=== PATIENT | male | born 1945 | race Two or more races ===

== ENCOUNTER → 2024-07-06 | Outpatient (CLI) | payer MEDICARE, SELFPAY ==
[2024-07-06 13:55] LABS: Basophils # (Auto) 0.1 Thou/mm3 (0.0-0.2); Basophils % (Auto) 1 % (0-2.5); Eosinophils # (Auto) 0.1 Thou/mm3 (0.0-0.5); Eosinophils % (Auto) 2 % (0-10); Hematocrit 40.4 % (41.0-53.0); Immature Granulocytes % (Auto) 0 % (0-0); Immature Granulocytes Auto 0.01 Thou/mm3 (0.00-0.00); Lymphocytes # (Auto) 1.3 Thou/mm3 (1.0-4.8); Lymphocytes % (Auto) 24 % (10-50); Mean Corpuscular HGB Conc 34.7 g/dl (31.0-37.0); Mean Corpuscular Hemoglobin 33.2 pg (25.0-35.0); Mean Corpuscular Volume 96 fL (80-100); Monocytes # (Auto) 0.5 Thou/mm3 (0.0-0.8); Monocytes % (Auto) 9 % (0-12); Neutrophils # (Auto) 3.4 Thou/mm3 (1.8-7.7); Neutrophils % (Auto) 64 % (37-80); Nucleated Red Blood Cell % 0 /100 WBC (0); Platelet Count 135 Thou/mm3 (140-440); RDW Standard Deviation 41.9 fL (35.1-43.9); Red Blood Count 4.22 Miln/mm3 (4.50-5.90); White Blood Count 5.3 Thou/mm3 (3.8-10.6)
[2024-07-06 14:05] LABS: Glucose Estimated Average 105 mg/dL (80-131); Hemoglobin A1C 5.3 % Hgb (4.8-6.0)
[2024-07-06 14:17] LABS: Alanine Aminotransferase 26 U/L (10-49); Albumin, Serum 3.9 gm/dL (3.4-4.8); Albumin/Globulin Ratio 1.4 (1.2-2.2); Alkaline Phosphatase 72 U/L (46-116); Anion Gap 8 (7-16); Aspartate Amino Transferase 38 U/L (0-34); BUN/Creatinine Ratio 19 Ratio (12-20); Blood Urea Nitrogen 13 mg/dL (9-23); Calcium 9.1 mg/dL (8.3-10.6); Calcium (Corrected) 9.2 mg/dL (8.5-10.1); Carbon Dioxide 24.7 mMol/L (20.0-31.0); Cardiac Risk Estimate 3.8 RATIO (4.0-6.7); Chloride 107 mMol/L (98-107); Cholesterol 159 mg/dL (132-200); Creatinine (Component) 0.7 mg/dL (0.6-1.3); Globulin 2.7 gm/dL (2.3-3.5); Glucose 109 mg/dL (74-106); HDL Cholesterol 42 mg/dL (40-60); LDL Cholesterol,Calculated 92 mg/dL (0-130); Osmolality,Calculated 280 (275-295); Potassium 4.1 mMol/L (3.4-5.1); Sodium 140 mMol/L (136-145); Total Protein 6.6 gm/dL (5.7-8.2); Triglycerides 123 mg/dL (30-150); Uric Acid 6.5 mg/dL (3.7-9.2); eGFR > 60 See Note
== END | disposition home or self-care (01) ==
LOC: COPL 12:09
PROVIDERS: PCP Family Medicine; Referring Provider Family Medicine; Visit Provider Family Medicine
DX: I25.10 Atherosclerotic heart disease of native coronary artery without angina pectoris (principal)
CPT/HCPCS: 36415; 80053; 80061; 83036; 84550; 85025

== ENCOUNTER → 2024-07-27 | Outpatient (CLI) | payer MEDICARE, SELFPAY ==
[2024-07-27 18:31] LABS: Amphetamine/Methamp Scrn,U Negative (Negative); Barbiturate Screen,Urine Negative (Negative); Benzodiazepines Screen,Urine Negative (Negative); Benzoylecgonine Screen, Ur Negative (Negative); Fentanyl Screen,Urine Negative (Negative); Opiate Screen,Urine Positive (Negative); THC Screen,Urine Negative (Negative)
== END | disposition home or self-care (01) ==
LOC: COPL 14:41 → SLDO 14:49
PROVIDERS: PCP Family Medicine; Referring Provider Family Medicine; Visit Provider Family Medicine
DX: Z71.51 Drug abuse counseling and surveillance of drug abuser (principal); M54.50 Low back pain, unspecified
CPT/HCPCS: 80307

== ENCOUNTER → 2024-10-04 | Outpatient (CLI) | payer MEDICARE, SELFPAY ==
--- NOTE | 2024-10-04 | XR_ITS ---
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
--- NOTE | 2024-10-04 13:12 | XR_ITS ---
Examination: Lumbar spine, 5 views Technique: Lumbar spine AP, lateral, coned lateral lower lumbar spine, bilateral obliques 5 views Exam date and time: October 04, 2024 1254 hours INDICATIONS: Low back pain months. FINDINGS: Grade 1 anterolisthesis L5 on S1 Moderate to advanced degenerative disc disease Prominent lumbar spondylosis Prominent facet arthropathy No acute lumbar fracture Margin: Moderate to advanced diffuse lumbar degenerative disc disease with spinal stenosis
== END | disposition home or self-care (01) ==
PROVIDERS: PCP Internal Medicine; Referring Provider Internal Medicine; Visit Provider Internal Medicine
DX: M25.551 Pain in right hip (principal); M25.552 Pain in left hip; Z96.643 Presence of artificial hip joint, bilateral; M51.360 Other intervertebral disc degeneration, lumbar region with discogenic back pain only; M48.061 Spinal stenosis, lumbar region without neurogenic claudication
CPT/HCPCS: 72110; 73523

== ENCOUNTER → 2024-10-08 | Outpatient (CLI) | payer MEDICARE, SELFPAY ==
[2024-10-08 12:00] LABS: Basophils # (Auto) 0.1 Thou/mm3 (0.0-0.2); Basophils % (Auto) 2 % (0-2.5); Eosinophils # (Auto) 0.3 Thou/mm3 (0.0-0.5); Eosinophils % (Auto) 5 % (0-10); Hematocrit 38.1 % (41.0-53.0); Hemoglobin 13.4 g/dL (13.5-16.0); Immature Granulocytes % (Auto) 0 % (0-0); Immature Granulocytes Auto 0.01 Thou/mm3 (0.00-0.00); Lymphocytes # (Auto) 1.5 Thou/mm3 (1.0-4.8); Lymphocytes % (Auto) 30 % (10-50); Mean Corpuscular HGB Conc 35.2 g/dl (31.0-37.0); Mean Corpuscular Hemoglobin 32.7 pg (25.0-35.0); Mean Corpuscular Volume 93 fL (80-100); Monocytes # (Auto) 0.4 Thou/mm3 (0.0-0.8); Monocytes % (Auto) 9 % (0-12); Neutrophils # (Auto) 2.7 Thou/mm3 (1.8-7.7); Neutrophils % (Auto) 54 % (37-80); Nucleated Red Blood Cell % 0 /100 WBC (0); Platelet Count 144 Thou/mm3 (140-440); RDW Standard Deviation 43.2 fL (35.1-43.9)
[2024-10-08 12:11] LABS: Glucose Estimated Average 108 mg/dL (80-131); Hemoglobin A1C 5.4 % Hgb (4.8-6.0)
[2024-10-08 12:17] LABS: Alanine Aminotransferase 17 U/L (10-49); Albumin, Serum 3.8 gm/dL (3.4-4.8); Albumin/Globulin Ratio 1.2 (1.2-2.2); Alkaline Phosphatase 82 U/L (46-116); Anion Gap 9 (7-16); Aspartate Amino Transferase 34 U/L (0-34); BUN/Creatinine Ratio 14 Ratio (12-20); Bilirubin,Total 0.8 mg/dL (0.3-1.2); Blood Urea Nitrogen 10 mg/dL (9-23); Calcium 8.5 mg/dL (8.3-10.6); Calcium (Corrected) 8.7 mg/dL (8.5-10.1); Carbon Dioxide 24.8 mMol/L (20.0-31.0); Cardiac Risk Estimate 4.3 RATIO (4.0-6.7); Chloride 109 mMol/L (98-107); Cholesterol 149 mg/dL (132-200); Creatinine (Component) 0.7 mg/dL (0.6-1.3); Globulin 3.2 gm/dL (2.3-3.5); Glucose 114 mg/dL (74-106); HDL Cholesterol 35 mg/dL (40-60); LDL Cholesterol,Calculated 86 mg/dL (0-130); Osmolality,Calculated 284 (275-295); Potassium 4.1 mMol/L (3.4-5.1); Sodium 143 mMol/L (136-145); Triglycerides 138 mg/dL (30-150); Uric Acid 7.5 mg/dL (3.7-9.2); eGFR > 60 See Note
== END | disposition home or self-care (01) ==
LOC: COPL 11:18
PROVIDERS: PCP Internal Medicine; Referring Provider Internal Medicine; Visit Provider Internal Medicine
DX: M25.552 Pain in left hip (principal); I25.10 Atherosclerotic heart disease of native coronary artery without angina pectoris; M10.9 Gout, unspecified
CPT/HCPCS: 36415; 80053; 80061; 83036; 84550; 85025

== ENCOUNTER 2025-01-18 00:29 | Emergency (ER) | payer MEDICARE, SELFPAY ==
[2025-01-18] VITALS (8 sets, daily range): BP systolic 135–211; BP diastolic 64–87; PULSE 61–77; RESP 17–20; TEMP 36.7–38.3; O2SAT 93–97; BMI 37.2
--- NOTE | 2025-01-18 01:15 | PD.EDBACK ---
ED Back Injury Pain RME/HPI General Chief Complaint: Abdominal Pain Stated Complaint: RLQ ABD PAIN Time Seen by Provider: 01/18/25 01:05 Arrival date/time: 01/18/25 00:29 RME / HPI RME / HPI Narrative: See [facility] for Dr. Franco's HPI Documentation. Related Data Home Medications ?Medication ?Instructions ?Recorded ?Confirmed acetaminophen 500 mg tablet 500 mg PO Q6H PRN Pain 03/06/21 03/06/21 Allergies Allergy/AdvReac Type Severity Reaction Status Date / Time No Known Allergies Allergy Verified 01/18/25 00:34 Review of Systems Review of Systems Systems Reviewed: All systems reviewed, normal except as documented Past Medical History Past Medical History GASTROINTESTINAL: Positive Hepatitis (A) MUSCULOSKELETAL: Positive Musculoskeletal Disorders, Arthritis, Gout and Fractures (RIGHT ARM HAD CAST) ENT: Positive Cataracts (MIKE) OTHER HISTORY: Positive Falls (07/09 ER VISIT RIGHT HIP POP OUT), Blood Transfusions, Chicken Pox, Measles and Mumps Family History FAMILY HISTORY: Positive Family Cardiac Disorders (FATHER (HTN)) and Family Surgery (SISTER) Surgical History SURGICAL: Positive Joint Replacement (MIKE HIP REPLACE) and Open Reduction Internal Fixation ED Exam Narrative Physical exam: See [facility] for Dr. Franco's Physical Exam Documentation. Course Quality Measures none Orders Category Date Time Status Bedside COVID-19 Antigen Test NOW Care 01/18/25 02:40 Active Bedside Influenza A&B Antigen Test NOW Care 01/18/25 02:[address] Screening NOW Care 01/18/25 02:42 Active EKG (ED ONLY) *Do not use* NOW Care 01/18/25 01:16 Completed Saline [Insert IV] NOW Care 01/18/25 01:15 Active Straight [In and Out Catheter] X1 Care 01/18/25 01:[address] abdomen pelvis w con Stat Exams 01/18/25 02:[address] angio chest Stat Exams 01/18/25 02:[address] head/brain wo con Stat Exams 01/18/25 01:[address] lumbar spine wo con Stat Exams 01/18/25 01:17 Taken EKG (ED Only) Stat Exams 01/18/25 01:16 Draft US gall bladder Stat Exams 01/18/25 01:18 Taken XR chest 1V portable Stat Exams 01/18/25 01:16 Taken Amylase Stat Lab 01/18/25 01:25 Completed Bilirubin,Direct Stat Lab 01/18/25 01:25 Completed Blood Culture (Lab) Stat Lab 01/18/25 03:20 Received C-Reactive Protein Stat Lab 01/18/25 01:25 Completed CBC Stat Lab 01/18/25 01:25 Completed CMP [Comprehensive Metabolic Panel] Stat Lab 01/18/25 01:25 Completed D-Dimer Stat Lab 01/18/25 01:25 Completed Lactate (Lactic Acid) Stat Lab 01/18/25 01:25 Results Lipase Stat Lab 01/18/25 01:25 Completed Magnesium Stat Lab 01/18/25 01:25 Completed Procalcitonin Stat Lab 01/18/25 01:25 Completed Sed Rate (ESR) Stat Lab 01/18/25 01:25 Completed UA, C/S IF [Urinalysis, C/S if Indicated] Stat Lab 01/18/25 02:18 Completed Acetaminophen Tab [Tylenol Tab] Med 01/18/25 02:41 Discontinued 650 mg PO X1 ONE Ketorolac Inj [Toradol Inj] Med 01/18/25 01:15 Discontinued 7.5 mg IVP X1 ONE Morphine Inj Med 01/18/25 01:15 Discontinued 4 mg IVP X1 ONE Ondansetron Inj [Zofran Inj] Med 01/18/25 01:15 Discontinued 4 mg IVP X1 ONE Sodium Chloride 0.9% 1000 ml [Ns] 1,000 ml Med 01/18/25 01:15 Discontinued IV 999 mls/hr Vital Signs Vital signs: Vital Signs Temperature 98.1 F 01/18/25 00:42 Pulse Rate 67 01/18/25 00:42 Respiratory Rate 20 01/18/25 00:42 Blood Pressure 193/87 H 01/18/25 00:42 Pulse Oximetry (%) 97 01/18/25 00:42 Oxygen Delivery Method Room Air 01/18/25 00:42 Back Pain / Injury MDM Narrative MDM Narrative:: This section includes all my notes and documentations, including HPI, PE, and ED course. Travis Franco MD HPI: 79 y/o male presents with right chest and right flank pain x 24 hours and several days of left-sided low back pain radiating to left leg. Has trouble localizing further his pain. Uncertain about exacerbating factors or relieving factors. No paralysis. No loss of control of the bladder or bowels. No numbness or tingling. No saddle numbness. Reports headache. No other complaints. ROS: All negative except as documented in HPI. Physical Exam: General: Alert and oriented. Appears uncomfortable. Fever noted. High BP noted. Eyes: Conjunctivae and lids clear. EOMI. PERRL. ENT: No nasal congestion. Neck: Supple. No for bruit. No JVD. Heart: RRR. Lungs: No respiratory distress. Good air movement. No rhonchi, wheezing, rales. Chest: Equivocal right sided chest tenderness. Abdomen: Soft with equivocal tenderness in right flank area. Normal bowel sounds. No distension. No rebound or guarding. Back: Equivocal lumbar spinal tenderness. Legs: No clubbing, cyanosis, edema. Skin: Warm and dry. Neuro: Alert and oriented X 3. Cranial Nerves II-XII grossly intact. No peripheral motor deficits. I reviewed all returned diagnostic test results: My interpretation of the EKG is: Sinus rhythm (74 bpm) with nonspecific ST-T changes. My review of the Gall Bladder US report is NAD. Blood tests and urine tests unremarkable. Covid/Influenza: Negative. CT scans pending. At this point, diagnoses include: Abdominal Pain Back pain Hypertensive urgency Fever Treatment here included: IV fluid Tylenol 650 mg orally Toradol 7.5 mg IV Morphine 4 mg IV Zofran 4 mg IV At 6 AM on 01/18/2025, the care of the patient was transferred to Dr. MONTANO. Travis Franco MD Patient data External records reviewed:: [facility] previous records (Reviewed prior ED records from 08/29/22. Patient was seen for Unspecified abdominal pain.) Clinical information provided by:: patient Social determinants that could affect healthcare access:: none Patient has the following chronic illnesses:: Hepatitis (A), Arthritis, Gout, Cataracts How is presenting disease/condition affected by chronic disease/condition?: exacerbated by Evaluation data The following diagnostics were reviewed and interpreted by me:: EKG tracing(s) (My interpretation of the EKG is: Sinus rhythm (74 bpm) with nonspecific ST-T changes. Travis Franco MD) Lab and/or radiology exams considered but not ordered:: None Interpretation Summary: I reviewed all diagnostic test results: My interpretation of the EKG is: Sinus rhythm (74 bpm) with nonspecific ST-T changes. My review of the Gall Bladder US report is NAD. Blood tests and urine tests unremarkable. Covid/Influenza: Negative. CT scans pending. Medications / Prescriptions Medications or Prescriptions considered but not ordered:: None Medication administrations:: Medication Administration History Discontinued Medications Acetaminophen (Acetaminophen 325 Mg Tablet) 650 mg PO X1 ONE Stop: 01/18/25 02:42 Last Admin: 01/18/25 02:51 Dose: 650 mg Documented By: ORIANA Sodium Chloride (Ns) 1,000 mls @ 999 mls/hr IV .Q1H1M ONE Stop: 01/18/25 02:15 Last Infusion: 01/18/25 02:58 Dose: Infused Documented By: Admin: 01/18/25 01:57 Dose: 999 mls/hr Documented By: CLEO Ketorolac Tromethamine (Ketorolac Inj 30 Mg/Ml Vial) 7.5 mg IVP X1 ONE Stop: 01/18/25 01:16 Last Admin: 01/18/25 01:57 Dose: 7.5 mg Documented By: CLEO Morphine Sulfate (Morphine Sulf Inj 10 Mg/Ml Vial) 4 mg IVP X1 ONE Stop: 01/18/25 01:16 Last Admin: 01/18/25 01:56 Dose: 4 mg Documented By: DT Ondansetron HCl (Ondansetron Inj 2 Mg/Ml Inj 2 Ml) 4 mg IVP X1 ONE; Protocol Stop: 01/18/25 01:16 Last Admin: 01/18/25 01:55 Dose: 4 mg Documented By: CLEO Treatment here included: IV fluid Tylenol 650 mg orally Toradol 7.5 mg IV Morphine 4 mg IV Zofran 4 mg IV Consultations Consultation(s) initiated? (list below): No Diagnosis Differential diagnosis back pain/injury: lumbar radiculopathy, sciatica, strain of lumbar region, renal colic, pyelonephritis, discitis and other (Abdominal Pain, Cholelithiasis, SBO) Most likely diagnosis given after review of the tests above:: Abdominal pain Back pain Fever Hypertensive urgency Admission Indicated Admission indicated?: not indicated Explain why admission is indicated or not indicated:: CT scans are pending. Admission Request Was there a request for admission?: No Disposition Plan Disposition Plan: other (specify) (Signed out to Dr. Montano at 6 AM.) Discharge Plan Prescriptions/Referrals Prescriptions/Med Rec: No Action acetaminophen 500 mg Tablet 500 mg PO Q6H PRN (Reason: Pain) Referrals: Andre Myles [Primary Care Provider] - In 1 week Problem List Clinical Impression: Abdominal pain, Fever, Hypertensive urgency, Back pain Patient/Caregiver Discharge Instructions Print Language: Ukrainian
--- NOTE | 2025-01-18 01:16 | EKG_ITS ---
[facility] Test Date: 2025-01-18 Pat Name: ANATOLIY PLUNKETT Department: Room: - Gender: Male [employer]: : 1945 Requested By: Travis Marin Order Number: [id number] Reading MD: Travis Marin Measurements Intervals [place] Rate: 74 P: 38 MI: 179 QRS: -46 QRSD: 85 T: 12 QT: 379 QTc: 421 Interpretive Statements SINUS RHYTHM PATTERN CONSISTENT WITH PULMONARY DISEASE LEFT ANTERIOR FASCICULAR BLOCK [QRS AXIS <= -45, QR IN I, RS IN II] Compared to ECG 03/05/2021 10:28:39 Left anterior fascicular block now present /store/S0/[id number].pdf
--- NOTE | 2025-01-18 01:16 | XR_ITS ---
Examination: PA chest single view TECHNIQUE: Upright PA chest single view Date and time: January 18, 2025 0117 hours INDICATIONS: Shortness of breath today. FINDINGS: Mild enlargement cardiac contour Moderate vascular congestion. No lobar pneumonia or pulmonary edema IMPRESSION: Moderate vascular congestion.
--- NOTE | 2025-01-18 01:16 | XR_ITS ---
Examination: CT brain head without contrast. 2-D sagittal coronal reconstructions Date and time of exam:January 18, 2025 0451 hours INDICATIONS: High blood pressure with headache beginning last night. CTDI: vol (mGy):51.9 DLP: (mGycm):1005 Technique: Multiple CT axial sections of the brain have been obtained, 5 mm slice thickness. Contrast has not been administered. 2-D sagittal, coronal reconstructions have been obtained Low dose protocols were performed. One or more of the following dose reduction techniques were used; automated exposure control, adjustment of the mA and/or KV according to patient size, use of iterative reconstruction technique. Findings: No significant ventricular enlargement. Intra-axial or extra-axial hemorrhage density is not seen. No mass effect or midline shift Basal cisterns are not remarkable. Fourth ventricle is midline. Cranial vault intact. Impression: Negative for acute hemorrhage, mass effect or midline shift
--- NOTE | 2025-01-18 01:17 | XR_ITS ---
Examination: CT lumbar spine, without contrast. 2-D sagittal reconstructions. 2-D coronal reconstructions. 3-D reconstructions. Date and time of exam:January 18, 2025 0457 hours INDICATIONS: Back pain beginning last night. CTDI: vol (mGy):40.6. DLP: (mGycm):1026. Technique: Multiple 1.25 mm axial sections of the lumbar spine without intravenous contrast. have been obtained. 2-D sagittal and coronal reconstructions have been obtained. 3-D reconstructions have been obtained. Low dose protocols were performed. One or more of the following dose reduction techniques were used; automated exposure control, adjustment of the mA and/or KV according to patient size, use of iterative reconstruction technique. Findings: Severe osteopenia. Advanced disc narrowing L2-L3, L4-L5 No acute lumbar fracture Lumbar pedicles laminated transverse and posterior spinous processes intact No spondylolisthesis L5-S1 4 mm central lumbar disc bulge with mild bilateral L5 ganglionic compression L4-L5 4 mm central lumbar disc bulge L3-L4 no disc protrusion L2-L3 no disc protrusion L1-L2 no disc protrusion IMPRESSION: No lumbar fracture. Advanced degenerative disc disease L2-L3, L4-L5 L5-S1, L4-L5 4 mm central lumbar disc bulges
--- NOTE | 2025-01-18 01:18 | XR_ITS ---
Examination: Abdomen sonogram, Limited Date and time of exam: January 18, 2025 0159 hours INDICATIONS: Right lower abdominal pain beginning 2 hours ago Technique: Real-time morse scale transabdominal sonographic images of the upper abdomen obtained. Findings: Normal gallbladder. Normal common bile duct 0.3 cm. Pancreas obscured by bowel gas. Liver 13.5 cm irregular contour fatty infiltration no focal liver lesions Normal hepatopedal portal venous flow Patent IVC IMPRESSION: Normal gallbladder Suspect primary hepatocellular disease
[2025-01-18 01:46] LABS: Basophils # (Auto) 0.1 Thou/mm3 (0.0-0.2); Basophils % (Auto) 1 % (0-2.5); Eosinophils # (Auto) 0.2 Thou/mm3 (0.0-0.5); Eosinophils % (Auto) 2 % (0-10); Hematocrit 44.5 % (41.0-53.0); Hemoglobin 15.1 g/dL (13.5-16.0); Immature Granulocytes Auto 0.05 Thou/mm3 (0.00-0.00); Lymphocytes # (Auto) 1.5 Thou/mm3 (1.0-4.8); Lymphocytes % (Auto) 14 % (10-50); Mean Corpuscular HGB Conc 33.9 g/dl (31.0-37.0); Mean Corpuscular Hemoglobin 32.3 pg (25.0-35.0); Mean Corpuscular Volume 95 fL (80-100); Monocytes # (Auto) 0.6 Thou/mm3 (0.0-0.8); Monocytes % (Auto) 6 % (0-12); Neutrophils # (Auto) 7.8 Thou/mm3 (1.8-7.7); Neutrophils % (Auto) 76 % (37-80); Nucleated Red Blood Cell # 0.00 Thou/mm3 (0.00-0.00); Nucleated Red Blood Cell % 0 /100 WBC (0); Platelet Count 152 Thou/mm3 (140-440); RDW Standard Deviation 43.1 fL (35.1-43.9); Red Blood Count 4.68 Miln/mm3 (4.50-5.90); White Blood Count 10.2 Thou/mm3 (3.8-10.6)
[2025-01-18] MEDS: ONDANSETRON INJ 2 MG/ML INJ 2 ML 4 MG IVP ×2 (01:55→08:01)
[2025-01-18] MEDS: MORPHINE SULF INJ 10 MG/ML VIAL 4 MG IVP (01:56)
[2025-01-18] MEDS: KETOROLAC INJ 30 MG/ML VIAL 7.5 MG IVP (01:57)
[2025-01-18] MEDS: SODIUM CHLORIDE 0.9% 1000 ML 1,000 ML 999 ML IV (01:57)
[2025-01-18 02:09] LABS: Alanine Aminotransferase 21 U/L (10-49); Albumin, Serum 4.5 gm/dL (3.4-4.8); Albumin/Globulin Ratio 1.4 (1.2-2.2); Alkaline Phosphatase 84 U/L (46-116); Amylase 80 U/L (30-118); Anion Gap 13 (7-16); Aspartate Amino Transferase 42 U/L (0-34); BUN/Creatinine Ratio 16 Ratio (12-20); Bilirubin,Direct 0.2 mg/dL (0.0-0.3); Bilirubin,Total 0.8 mg/dL (0.3-1.2); Blood Urea Nitrogen 11 mg/dL (9-23); Calcium 10.0 mg/dL (8.3-10.6); Calcium (Corrected) 10.0 mg/dL (8.5-10.1); Carbon Dioxide 23.4 mMol/L (20.0-31.0); Chloride 106 mMol/L (98-107); Creatinine (Component) 0.7 mg/dL (0.6-1.3); Estimated Creatinine Clearance 88.9 mL/min (>60); Globulin 3.3 gm/dL (2.3-3.5); Glucose 86 mg/dL (74-106); Lipase 32 U/L (12-53); Magnesium 1.7 mg/dL (1.6-2.6); Osmolality,Calculated 281 (275-295); Potassium 4.3 mMol/L (3.4-5.1); Sodium 142 mMol/L (136-145); Total Protein 7.8 gm/dL (5.7-8.2); eGFR > 60 See Note
[2025-01-18 02:29] LABS: Collection Type, Urine Clean Catch
[2025-01-18 02:34] LABS: Bilirubin,Urine Negative (Negative); Blood,Urine Negative (Negative); Clarity,Urine Clear (Clear/Hazy); Color,Urine Colorless (Lt Yel-Yel); Culture Indicated,Urine Not Indicated; Glucose, Urine Negative (Negative); Ketones,Urine Negative (Negative); Leukocyte Esterase,Urine Negative (Negative); Nitrite,Urine Negative (Negative); PH,Urine 6.5 (5.0-7.0); Protein,Urine Negative (Neg - Trace); RBC,Urine 2 /hpf (0-3); Specific Gravity,Urine 1.012 (1.001-1.035); Squamous Epithelial Cell,Urine < 1 /hpf (0-5); Urobilinogen,Urine Negative mg/dL (0.0-1.0); WBC,Urine 1 /hpf (0-5)
--- NOTE | 2025-01-18 02:42 | XR_ITS ---
Examination: CT abdomen with intravenous contrast CT pelvis with intravenous contrast 2-D coronal reconstructions 2-D sagittal reconstructions Date and time of exam:January 18, 2025 0503 hours INDICATIONS: Right flank pain abdominal pain beginning last night.. CTDI: vol (mGy) 15.4. DLP: (mGycm) 918. Technique: Multiple axial sections of the abdomen and pelvis have been obtained. 64 slice high-resolution scanner used. 3 mm axial sections have been obtained, post intravenous injection 60 cc Isovue-370. 2-D sagittal, coronal reconstructions obtained. Low dose protocols were performed. One or more of the following dose reduction techniques were used; automated exposure control, adjustment of the mA and/or KV according to patient size, use of iterative reconstruction technique. Findings: Liver is nodular in contour, no focal liver lesions Mild splenomegaly. No gallstones. No pancreatic or adrenal mass. Minimal perinephric stranding. 2 mm lower pole right renal calculus Aorta normal size. 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 Mild splenomegaly. 2 mm lower pole right renal calculus, no hydronephrosis or ureteral calculi No findings diagnostic for appendicitis but clinical correlation advised
--- NOTE | 2025-01-18 02:42 | XR_ITS ---
Examination: CTA chest with intravenous contrast 2-D reconstructions 3-D reconstructions, vascular Date and time of exam: January 18, 2025 0503 hours INDICATIONS: Chest pain high blood pressure shortness of breath beginning last night CTDI: vol (mGy) 13.9 DLP: (mGycm) 474 Technique: Multiple axial sections of the thorax have been obtained. 3 mm slice thickness, from below the hemidiaphragms to above the apices of the lungs. Mediastinal and lung density settings have been obtained. 2-D sagittal and coronal reconstructions. 3-D angiographic renderings, 3-D volume renderings, 3D post processing, vascular maximum intensity projections obtained. Contrast administered is 60 cc Isovue-370. Low dose protocols were performed. One or more of the following dose reduction techniques were used; automated exposure control, adjustment of the mA and/or KV according to patient size, use of iterative reconstruction technique. Findings: No thoracic aortic aneurysm dilatation. No pulmonary artery filling defects. Significant calcification left anterior descending left circumflex right coronary arteries. No pneumonia or pulmonary edema No pleural disease Advanced diffuse thoracic degenerative disc disease IMPRESSION: Negative for pulmonary artery emboli No pneumonia pulmonary edema or pleural disease.
[2025-01-18] MEDS: ACETAMINOPHEN 325 MG TABLET 650 MG PO (02:51)
[2025-01-18 03:03] LABS: Lactate (Lactic Acid) 2.4 mMol/L (0.4-2.0)
[2025-01-18 03:18] LABS: Sed Rate (ESR) 30 mm/hr (0-20)
[2025-01-18 03:24] LABS: C-Reactive Protein < 0.5 mg/dL (0.0-0.9); Procalcitonin 0.04 ng/ml (0.0-0.49)
--- NOTE | 2025-01-18 03:35 | PRELIM_ITS ---
Right upper quadrant abdominal ultrasound with Doppler and wave Doppler spectral analysis. January 18, 2025 0159 hours Clinical history: Right flank pain Technique: Grayscale and color flow images of the right upper quadrant are provided. Hepatic and portal veins were also imaged with color flow images. Comparison: None. Findings: Heterogeneous liver parenchyma. Irregular liver margins. Childs sign is not available at time of this report. No intrahepatic biliary ductal dilatation. No gallbladder calculus, wall thickening or pericholecystic fluid is demonstrated. The common bile duct is normal in caliber at 3.4 mm. The pancreas is unremarkable to the extent visualized. The portal vein is patent with hepatopetal flow and normal with Doppler spectral analysis. The inferior vena cava is patent with normal wave Doppler spectral analysis. Impression: Probable cirrhosis. Report Electronically Signed By: Bennie Mock 01/18/2025 3:34:36 AM [EST]
[2025-01-18 03:41] LABS: D-Dimer 1030 ng/mL (<600)
[2025-01-18 06:00] LABS: Reflex Lactate? Y
--- NOTE | 2025-01-18 06:05 | PRELIM_ITS ---
CT scan of the head without intravenous contrast (axial sections with sagittal and coronal reformats). January 18, 2025 0451 hours Clinical History: High BP and headache Comparison: No prior study is available for comparison. Findings: No evidence of intracranial hemorrhage, mass effect or midline shift. Cavum septum pellucidum are seen, representing an anatomic variant. The ventricles and CSF spaces are unremarkable. There is atheromatous calcification of the intracranial arteries. The calvarium is unremarkable. The mastoid air cells and the visualized paranasal sinuses are clear. Impression: No evidence of intracranial hemorrhage, mass effect or midline shift. Report Electronically Signed By: Rogelio Terrazas 01/18/2025 6:05:24 AM [EST]
--- NOTE | 2025-01-18 06:08 | PRELIM_ITS ---
CT angiogram of the chest with intravenous contrast (axial sections with sagittal and coronal reformats) January 18, 2025 0503 hours Clinical History: SOB, chest pain. Technique:Helical axial sections with sagittal and coronal reformats of the chest were obtained with intravenous contrast. Iterative reconstruction technique was employed to reduce patient radiation exposure. Comparison: No prior study is available for comparison. Findings: There is no filling defect within the pulmonary artery divisions to suggest pulmonary thromboembolism. The mediastinum demonstrates no evidence of mass or lymphadenopathy. The thoracic aorta demonstrates atheromatous calcification without evidence of aneurysm or dissection. There is no pericardial effusion. Bibasilar dependent atelectasis is present. The lungs, otherwise are clear. No evidence of pleural effusion or pneumothorax. Degenerative changes are identified in the spine. Impression: No CT evidence of pulmonary thromboembolism or other acute intrathoracic pathology. Report on abdomen and pelvis CT to follow. Report Electronically Signed By: Rogelio Terrazas 01/18/2025 6:07:24 AM [EST]
[2025-01-18 06:22] LABS: Lactic Acid, 3 HR 1.8 mMol/L (0.4-2.0)
--- NOTE | 2025-01-18 06:23 | PRELIM_ITS ---
CT scan of the lumbar spine without intravenous contrast (axial sections with sagittal and coronal reformats) January 18, 2025 0457 hours Clinical History: Left LBP radiating into left leg Comparison: No prior study is available for comparison. Findings: There is no fracture or subluxation. There is minimal retrolisthesis of L2 on L3. The vertebral body height are normal. Moderated degenerative changes are identified in the spine with multilevel decreased intervertebral disc height and vacuum phenomenon. Multilevel diffuse disc bulges are noted causing mild to moderate spinal canal and bilateral neural foraminal narrowing, most prominent at the levels L2/L3 and L4/L5. The visualized sacroiliac joints are unremarkable. The soft tissues are unremarkable. Impression: No evidence of fracture, subluxation or significant soft tissue injury. 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 Report Electronically Signed By: Rogelio Terrazas 01/18/2025 6:23:21 AM [EST]
--- NOTE | 2025-01-18 06:24 | PRELIM_ITS ---
CT scan of the abdomen and pelvis with intravenous contrast (axial sections with sagittal and coronal reformats) January 18, 2025 0503 hours Clinical History: Right flank pain. Comparison: Compared with the prior study dated January 18, 2025. Findings: The liver demonstrates cirrhotic changes. Subcentimeter right renal cyst is noted. The kidneys otherwise are unremarkable . No evidence of obstructing renal/ureteric calculus or hydroureteronephrosis. Punctate nonobstructing right renal calculus is noted. Nonspecific perinephric fat stranding is noted bilaterally. The liver, gallbladder, pancreas, spleen and adrenals are unremarkable. No bowel obstruction. Small duodenal diverticulum is noted measuring 2.5cm in diameter. There is mild wall prominence of the appendix with ill-defined outer contour and periappendiceal fat stranding. There are multiple colonic diverticula without evidence of diverticulitis. There is no mesenteric or retroperitoneal adenopathy. The aorta and its branches demonstrate atheromatous calcification without evidence of aneurysm. The urinary bladder demonstrates mild wall thickening with subtle perivesical fat stranding, although is limited in visualized due to streak artifact. There is no free fluid or free air. Moderated degenerative changes are identified in the spine with multilevel intervertebral disc vacuum phenomenon. There is minimal retrolisthesis of L2 on L3. Bilateral hip implants are present causing streak artifact and limiting evaluation of the pelvic structures. Impression: 1. Findings suggestive of early acute appendicitis. Recommend clinical correlation and follow-up. 2. No evidence of renal/ureteric calculus or hydroureteronephrosis. 3. No evidence of bowel obstruction, free air or abscess. 4. Other findings as described above. Discussion Details: Results verbally communicated to : Dr. Montano at 06:08 AM 01/18/2025 Report Electronically Signed By: Rogelio Terrazas 01/18/2025 6:23:31 AM [EST]
--- NOTE | 2025-01-18 06:45 | PD.EDADDENDU ---
Emergency Room Addendum Addendum Narrative: 0600: Care assumed from Dr. Franco, the previous shift emergency physician. Past medical, surgical, social and family history reviewed. Vitals and home medications reviewed. I will assume the care of the patient at this time, pending CTs and final disposition. Please refer to the emergency department record for history and examination from initial visit.?The following addendum documentation note is intended to reflect any pending information, findings, or radiology results not included in the patient?s initial chart. Patient remains clinically stable throughout the emergency department visit. We reviewed all the results, analysis, and treatment plans. Patient is amenable to discharge. Strict return precautions were outlined. RADIOLOGY Ordering Physician: Travis Franco MD Date of Service: 01/18/25 Procedure(s): CT head/brain wo con Accession Number(s): [id number] cc: Andre Myles; Travis Franco MD; Papo Myers MD~ Examination: CT brain head without contrast. 2-D sagittal coronal reconstructions Date and time of exam:January 18, 2025 0451 hours INDICATIONS: High blood pressure with headache beginning last night. CTDI: vol (mGy):51.9 DLP: (mGycm):1005 Technique: Multiple CT axial sections of the brain have been obtained, 5 mm slice thickness. Contrast has not been administered. 2-D sagittal, coronal reconstructions have been obtained Low dose protocols were performed. One or more of the following dose reduction techniques were used; automated exposure control, adjustment of the mA and/or KV according to patient size, use of iterative reconstruction technique. Findings: No significant ventricular enlargement. Intra-axial or extra-axial hemorrhage density is not seen. No mass effect or midline shift Basal cisterns are not remarkable. Fourth ventricle is midline. Cranial vault intact. Impression: Negative for acute hemorrhage, mass effect or midline shift Dictated By: Papo Myers MD Signed By: <Electronically signed by Papo Myers MD in [place]> 01/18/25 0900 Ordering Physician: Travis Franco MD Date of Service: 01/18/25 Procedure(s): CT lumbar spine wo [facility] Accession Number(s): [id number] cc: Andre Myles; Travis Franco MD; Papo Myers MD~ Examination: CT lumbar spine, without contrast. 2-D sagittal reconstructions. 2-D coronal reconstructions. 3-D reconstructions. Date and time of exam:January 18, 2025 0457 hours INDICATIONS: Back pain beginning last night. CTDI: vol (mGy):40.6. DLP: (mGycm):1026. Technique: Multiple 1.25 mm axial sections of the lumbar spine without intravenous contrast. have been obtained. 2-D sagittal and coronal reconstructions have been obtained. 3-D reconstructions have been obtained. Low dose protocols were performed. One or more of the following dose reduction techniques were used; automated exposure control, adjustment of the mA and/or KV according to patient size, use of iterative reconstruction technique. Findings: Severe osteopenia. Advanced disc narrowing L2-L3, L4-L5 No acute lumbar fracture Lumbar pedicles laminated transverse and posterior spinous processes intact No spondylolisthesis L5-S1 4 mm central lumbar disc bulge with mild bilateral L5 ganglionic compression L4-L5 4 mm central lumbar disc bulge L3-L4 no disc protrusion L2-L3 no disc protrusion L1-L2 no disc protrusion IMPRESSION: No lumbar fracture. Advanced degenerative disc disease L2-L3, L4-L5 L5-S1, L4-L5 4 mm central lumbar disc bulges Dictated By: Papo Myers MD Signed By: <Electronically signed by Papo Myers MD in [place]> 01/18/25 0859 Ordering Physician: Travis Franco MD Date of Service: 01/18/25 Procedure(s): CT abdomen pelvis w con Accession Number(s): [id number] cc: Andre Myles; Travis Franco MD; Papo Myers MD~ Examination: CT abdomen with intravenous contrast CT pelvis with intravenous contrast 2-D coronal reconstructions 2-D sagittal reconstructions Date and time of exam:January 18, 2025 0503 hours INDICATIONS: Right flank pain abdominal pain beginning last night.. CTDI: vol (mGy) 15.4. DLP: (mGycm) 918. Technique: Multiple axial sections of the abdomen and pelvis have been obtained. 64 slice high-resolution scanner used. 3 mm axial sections have been obtained, post intravenous injection 60 cc Isovue-370. 2-D sagittal, coronal reconstructions obtained. Low dose protocols were performed. One or more of the following dose reduction techniques were used; automated exposure control, adjustment of the mA and/or KV according to patient size, use of iterative reconstruction technique. Findings: Liver is nodular in contour, no focal liver lesions Mild splenomegaly. No gallstones. No pancreatic or adrenal mass. Minimal perinephric stranding. 2 mm lower pole right renal calculus Aorta normal size. 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 Mild splenomegaly. 2 mm lower pole right renal calculus, no hydronephrosis or ureteral calculi No findings diagnostic for appendicitis but clinical correlation advised Dictated By: Papo Myers MD Signed By: <Electronically signed by Papo Myers MD in [place]> 01/18/25 0856 Ordering Physician: Travis Franco MD Date of Service: 01/18/25 Procedure(s): CT angio chest Accession Number(s): [id number] cc: Andre Myles; Travis Franco MD; Papo Myers MD~ Examination: CTA chest with intravenous contrast 2-D reconstructions 3-D reconstructions, vascular Date and time of exam: January 18, 2025 0503 hours INDICATIONS: Chest pain high blood pressure shortness of breath beginning last night CTDI: vol (mGy) 13.9 DLP: (mGycm) 474 Technique: Multiple axial sections of the thorax have been obtained. 3 mm slice thickness, from below the hemidiaphragms to above the apices of the lungs. Mediastinal and lung density settings have been obtained. 2-D sagittal and coronal reconstructions. 3-D angiographic renderings, 3-D volume renderings, 3D post processing, vascular maximum intensity projections obtained. Contrast administered is 60 cc Isovue-370. Low dose protocols were performed. One or more of the following dose reduction techniques were used; automated exposure control, adjustment of the mA and/or KV according to patient size, use of iterative reconstruction technique. Findings: No thoracic aortic aneurysm dilatation. No pulmonary artery filling defects. Significant calcification left anterior descending left circumflex right coronary arteries. No pneumonia or pulmonary edema No pleural disease Advanced diffuse thoracic degenerative disc disease IMPRESSION: Negative for pulmonary artery emboli No pneumonia pulmonary edema or pleural disease. Dictated By: Papo Myers MD Signed By: <Electronically signed by Papo Myers MD in [place]> 01/18/25 0857
--- NOTE | 2025-01-18 07:30 | PC.NURSE ---
Pt. here from home to room 19, pt. states he started having right lower quadrant abdominal pain last night that radiated to the middle lower abdomen, pt. states he has nausea but didn't vomit. Pt. states he has hip pain and left lower leg pain. Pt. states he ran out of his Lyrica on Friday, pt. states he has been dealing with shingles nerve pain the last 3 months. Pt.'s spouse is bedside. Gave spouse coffee and a warm blanket. Gave pt. a warm blanket and informed M.D. pt. has pain 01/26. M.D. states she will put in orders.
[2025-01-18] MEDS: MORPHINE SULF INJ 10 MG/ML VIAL 5 MG IVP (08:04)
== END 2025-01-18 10:28 | disposition home or self-care (01) ==
PROVIDERS: Emergency Medicine; Emergency Provider Emergency Medicine; PCP Internal Medicine
DX: I16.0 Hypertensive urgency (principal); R50.9 Fever, unspecified; M51.360 Other intervertebral disc degeneration, lumbar region with discogenic back pain only; M51.370 Other intervertebral disc degeneration, lumbosacral region with discogenic back pain only; K74.60 Unspecified cirrhosis of liver; N20.0 Calculus of kidney; R16.1 Splenomegaly, not elsewhere classified; I44.4 Left anterior fascicular block; R51.9 Headache, unspecified; R06.02 Shortness of breath
CPT/HCPCS: 36415; 70450; 71045; 71275; 72131; 74177; 76705; 80053; 81001; 82150; 82248; 83605; 83690; 83735; 84145; 85025; 85379; 85652; 86140; 87040; 87400; 87811; 93005; 96361; 96374; 96375; 96376; 99284; A4649; J1885; J2270; J2405; J7030; Q9967; A9270

== ENCOUNTER → 2025-01-21 | Outpatient (CLI) | payer MEDICARE, SELFPAY ==
--- NOTE | 2025-01-21 | XR_ITS ---
Examination: Venous duplex lower extremity sonogram, bilateral. Date and time of exam: January 21, 2025 1143 hours Bilateral leg swelling beginning several months ago Technique: Multiple sonographic images of the deep venous system have been obtained. B-mode/2-D grayscale imaging of vascular structures and Doppler spectral analysis (waveforms) and color performed Both legs are examined. Findings: Deep venous systems do not demonstrate abnormal echogenicity. All visualized deep veins exhibit compressibility. All visualized deep veins exhibit augmentation. Impression: Negative for deep vein thrombosis
== END | disposition home or self-care (01) ==
PROVIDERS: PCP Internal Medicine; Referring Provider Internal Medicine; Visit Provider Internal Medicine
DX: R60.9 Edema, unspecified (principal); R79.1 Abnormal coagulation profile; M79.605 Pain in left leg
CPT/HCPCS: 93970

== ENCOUNTER 2025-03-31 20:56 | Inpatient (IN) | payer MEDICARE, SELFPAY ==
--- NOTE | 2025-03-31 20:58 | XR_ITS ---
EXAMINATION: AP chest single view TECHNIQUE: AP portable upright chest single view Date and time: March 31, 2025, 2144 hours, comparison 01/18/2025 INDICATIONS: Stroke alert, shortness of breath chest pain today. FINDINGS: Mild prominence left ventricle Mild vascular congestion. No aspiration pneumonia. Suspicious for mitral valvular calcification. Prominent osteopenia IMPRESSION: Mild vascular congestion No aspiration pneumonia
--- NOTE | 2025-03-31 20:58 | XR_ITS ---
Examination: CTA carotids with intravenous contrast CTA brain, head with intravenous contrast. 2-D sagittal, coronal reconstructions. 3-D reconstructions. Exam date and time: March 31, 2025, 0908 hours INDICATIONS: Stroke alert, onset focal neurologic deficit today CTDI: vol (mGy) 652.21 DLP: (mGycm) 675 Technique: Multiple CTA axial brain, head carotid images post intravenous contrast injection 75 cc, Isovue-370. 2-D sagittal, coronal reconstructions. 3-D reconstructions, 3-D post processing including vascular maximum intensity projection images. Low dose protocols were performed. One or more of the following dose reduction techniques were used; automated exposure control, adjustment of the mA and/or KV according to patient size, use of iterative reconstruction technique. Findings: Heavy calcification right carotid bifurcation, 50 to 70% stenosis right carotid bifurcation origin right internal carotid artery Heavy calcification left carotid bifurcation, 80% stenosis carotid bifurcation and origin left internal carotid artery Dominant left vertebral artery no critical vertebral artery stenoses in the neck Intracranial vertebral arteries basilar artery posterior cerebral branches fill with no large vessel occlusions Moderate calcification juxtasellar portions internal carotid arteries No large vessel occlusions middle cerebral or anterior cerebral branches IMPRESSION: 50 to 70% stenosis right carotid bifurcation origin right internal carotid artery 80% stenosis left carotid bifurcation origin left internal carotid artery No cerebral large vessel arterial occlusions or thrombus
--- NOTE | 2025-03-31 20:58 | XR_ITS ---
Examination: CT brain head without contrast. 2-D sagittal coronal reconstructions Date and time of exam: March 31, 2025, 2105 hours INDICATIONS: Stroke alert, onset focal neurologic deficit left-sided body weakness beginning 2 hours ago CTDI: vol (mGy): 49.9 DLP: (mGycm): 973 Technique: Multiple CT axial sections of the brain have been obtained, 5 mm slice thickness. Contrast has not been administered. 2-D sagittal, coronal reconstructions have been obtained Low dose protocols were performed. One or more of the following dose reduction techniques were used; automated exposure control, adjustment of the mA and/or KV according to patient size, use of iterative reconstruction technique. Findings: No significant ventricular enlargement. Intra-axial or extra-axial hemorrhage density is not seen. No mass effect or midline shift Basal cisterns are not remarkable. Fourth ventricle is midline. Cranial vault intact. Impression: Negative for acute hemorrhage, mass effect or midline shift
--- NOTE | 2025-03-31 20:59 | PD.EDNEURO ---
Neuro Symptoms Deficit-RME/HPI General Chief Complaint: Neuro Symptoms/Deficit Stated Complaint: STROKE Time Seen by Provider: 03/31/25 20:59 Arrival date/time: 03/31/25 20:56 RME / HPI RME / HPI Narrative: See [facility] for Dr. Franco's HPI Documentation. Related Data Home Medications ?Medication ?Instructions ?Recorded ?Confirmed acetaminophen 500 mg tablet 500 mg PO Q6H PRN Pain 03/06/21 04/01/25 amlodipine 5 mg tablet 5 mg PO QDAY 04/01/25 04/01/25 hydrocodone 5 mg-acetaminophen 325 1 tab PO Q12H PRN pain 04/01/25 04/01/25 mg tablet pregabalin 300 mg capsule 300 mg PO BID 04/01/25 04/01/25 Allergies Allergy/AdvReac Type Severity Reaction Status Date / Time No Known Allergies Allergy Verified 01/18/25 00:34 Review of Systems Review of Systems Systems Reviewed: All systems reviewed, normal except as documented Past Medical History Past Medical History GASTROINTESTINAL: Positive Hepatitis (A) MUSCULOSKELETAL: Positive Arthritis, Gout and Fractures (RIGHT ARM HAD CAST) ENT: Positive Cataracts (MIKE) OTHER HISTORY: Positive Falls (07/09 ER VISIT RIGHT HIP POP OUT), Blood Transfusions, Chicken Pox, Measles and Mumps Family History FAMILY HISTORY: Positive Family Cardiac Disorders (FATHER (HTN)) and Family Surgery (SISTER) Surgical History SURGICAL: Positive Joint Replacement (MIKE HIP REPLACE) and Open Reduction Internal Fixation ED Exam Narrative Physical exam: See [facility] for Dr. Franco's Physical Exam Documentation. Course Quality Measures none Orders Category Date Time Status Admit to Inpatient Status Routine Admission 03/31/25 22:00 Active Patient Condition Routine Admission 03/31/25 22:00 Ordered Activity as Tolerated Routine Care 03/31/25 22:02 Ordered Aspiration precautions NOW Care 03/31/25 22:03 Active Bedside Blood Glucose NOW Care 03/31/25 20:58 Active Oracle Developer NOW Care 03/31/25 20:58 Active Continuous Pulse Oximetry NOW Care 03/31/25 20:58 Completed Continuous Pulse Oximetry NOW Care 03/31/25 22:00 Completed EKG (ED ONLY) *Do not use* NOW Care 03/31/25 20:58 Completed In and Out Catheter NEEDED Care 03/31/25 20:58 Active Insert IV NOW Care 03/31/25 20:58 Active NIH Stroke Scale now Care 03/31/25 20:58 Active NPO NOW Care 03/31/25 20:58 Active NPO NOW Care 03/31/25 22:02 Active Neuro Check Q4H Care 03/31/25 22:00 Active Notify provider NEEDED Care 03/31/25 22:00 Active Notify provider NEEDED Care 03/31/25 22:01 Active Nurse Swallow Screen x1 Care 03/31/25 20:58 Active Sequential Compression Device QSHIFT Care 03/31/25 22:05 Active Urinary Catheter QS Care 03/31/25 22:00 Completed Consult to Neurology / Tele-Neurology Routine Cons 03/31/25 20:58 Active Diet NPO (NOW) Diet 03/31/25 22:02 Completed CA echo doppler complete Routine Exams 03/31/25 22:[address] angio stroke protocol Stat Exams 03/31/25 20:[address] stroke protocol Stat Exams 03/31/25 20:58 Completed EKG (ED Only) Stat Exams 03/31/25 20:58 Ordered XR chest 1V portable Stat Exams 03/31/25 20:58 Completed Alcohol, Blood Medical Stat Lab 03/31/25 20:58 Completed Arterial Blood Gas Stat Lab 03/31/25 23:47 Completed B-Type Natriuretic Peptide Stat Lab 03/31/25 20:58 Completed CBC AM DRAW Lab 04/01/25 05:42 Completed CBC AM DRAW Lab 04/02/25 05:44 Completed CBC AM DRAW Lab 04/03/25 05:00 Ordered CBC AM DRAW Lab 04/04/25 05:00 Ordered CBC AM DRAW Lab 04/05/25 05:00 Ordered CBC AM DRAW Lab 04/06/25 05:00 Ordered CBC AM DRAW Lab 04/07/25 05:00 Ordered CBC AM DRAW Lab 04/08/25 05:00 Ordered CBC AM DRAW Lab 04/09/25 05:00 Ordered CBC AM DRAW Lab 04/10/25 05:00 Ordered CBC Stat Lab 03/31/25 20:58 Completed CMP [Comprehensive Metabolic Panel] AM DRAW Lab 04/01/25 05:42 Completed CMP [Comprehensive Metabolic Panel] AM DRAW Lab 04/02/25 05:44 Completed CMP [Comprehensive Metabolic Panel] AM DRAW Lab 04/03/25 05:00 Ordered CMP [Comprehensive Metabolic Panel] AM DRAW Lab 04/04/25 05:00 Ordered CMP [Comprehensive Metabolic Panel] AM DRAW Lab 04/05/25 05:00 Ordered CMP [Comprehensive Metabolic Panel] AM DRAW Lab 04/06/25 05:00 Ordered CMP [Comprehensive Metabolic Panel] AM DRAW Lab 04/07/25 05:00 Ordered CMP [Comprehensive Metabolic Panel] AM DRAW Lab 04/08/25 05:00 Ordered CMP [Comprehensive Metabolic Panel] AM DRAW Lab 04/09/25 05:00 Ordered CMP [Comprehensive Metabolic Panel] AM DRAW Lab 04/10/25 05:00 Ordered Comprehensive Metabolic Panel Stat Lab 03/31/25 20:58 Completed Drug Screen,Urine Stat Lab 03/31/25 22:07 Completed Mag [Magnesium] AM DRAW Lab 04/01/25 05:42 Completed Mag [Magnesium] AM DRAW Lab 04/02/25 05:44 Completed Mag [Magnesium] AM DRAW Lab 04/03/25 05:00 Ordered Mag [Magnesium] AM DRAW Lab 04/04/25 05:00 Ordered Mag [Magnesium] AM DRAW Lab 04/05/25 05:00 Ordered Mag [Magnesium] AM DRAW Lab 04/06/25 05:00 Ordered Mag [Magnesium] AM DRAW Lab 04/07/25 05:00 Ordered Mag [Magnesium] AM DRAW Lab 04/08/25 05:00 Ordered Mag [Magnesium] AM DRAW Lab 04/09/25 05:00 Ordered Mag [Magnesium] AM DRAW Lab 04/10/25 05:00 Ordered Magnesium Stat Lab 03/31/25 20:58 Completed Partial Thromboplastin Time Stat Lab 03/31/25 20:58 Completed Phosphorous AM DRAW Lab 04/01/25 05:42 Completed Phosphorous AM DRAW Lab 04/02/25 05:44 Completed Phosphorous AM DRAW Lab 04/03/25 05:00 Ordered Phosphorous AM DRAW Lab 04/04/25 05:00 Ordered Phosphorous AM DRAW Lab 04/05/25 05:00 Ordered Phosphorous AM DRAW Lab 04/06/25 05:00 Ordered Phosphorous AM DRAW Lab 04/07/25 05:00 Ordered Phosphorous AM DRAW Lab 04/08/25 05:00 Ordered Phosphorous AM DRAW Lab 04/09/25 05:00 Ordered Phosphorous AM DRAW Lab 04/10/25 05:00 Ordered Prothrombin Time with INR Stat Lab 03/31/25 20:58 Completed Troponin I Stat Lab 03/31/25 20:58 Completed Urinalysis, C/S if Indicated Stat Lab 03/31/25 22:07 Completed Acetaminophen Tab [Tylenol Tab] Med 03/31/25 22:00 Active 650 mg PO Q6H PRN Aspirin [Ecotrin] Med 03/31/25 21:44 Discontinued 81 mg PO X1 ONE Atorvastatin Calcium [Lipitor] Med 04/01/25 21:00 Active 40 mg PO HS Clopidogrel [Plavix] Med 03/31/25 21:44 Discontinued 300 mg PO X1 ONE Clopidogrel [Plavix] Med 04/01/25 09:00 Discontinued 75 mg PO QDAY Docusate Sod [Colace] Med 04/01/25 09:00 Active 100 mg PO QDAY Famotidine Inj [Pepcid Inj] Med 04/01/25 09:00 Active 20 mg IVP Q12HR Labetalol IV [Trandate IV] Med 03/31/25 20:58 Discontinued 10 mg IVP Q15M PRN Morphine* Inj Med 03/31/25 21:43 Discontinued 6 mg IV X1 ONE Ondansetron Inj [Zofran Inj] Med 03/31/25 20:58 Active 4 mg IVP Q4HR PRN Sodium Chloride 0.9% 1000 ml [Ns] 1,000 ml Med 03/31/25 21:00 Discontinued IV Q10H Tenecteplase Inj [TNKase Inj] Med 03/31/25 21:31 Discontinued 50 mg .ROUTE .STK-MED ONE cloNIDine HCL [Catapres] Med 03/31/25 21:43 Discontinued 0.3 mg PO X1 ONE Code Status Routine Oth 03/31/25 22:00 Ordered Oxygen Delivery DAILY RT 03/31/25 22:03 Active Oxygen Delivery NOW RT 03/31/25 20:58 Active Vital Signs Vital signs: Vital Signs Temperature 97.9 F 03/31/25 21:00 Pulse Rate 63 03/31/25 21:00 Respiratory Rate 18 03/31/25 21:00 Blood Pressure 203/49 H 03/31/25 21:00 Pulse Oximetry (%) 97 03/31/25 21:00 Oxygen Delivery Method Room Air 03/31/25 21:00 Neuro Symptoms / Deficit MDM Narrative MDM Narrative:: This section includes all my notes and documentations, including HPI, PE, and ED course. Travis Franco MD HPI: 79 y/o male BIBA from home with possible stroke. About 2 hours [employer], symptoms include dizziness (possible vertigo-like), having trouble standing and balancing and leaning to left, and possible left sided weakness and speech impairment. Has trouble describing his symptoms in details. ROS: All negative except as documented in HPI. Physical Exam: General: Alert and oriented. High BP noted. Eyes: Conjunctivae and lids clear. EOMI. PERRL. ENT: No nasal congestion. Pharynx normal. Tympanic membrane normal bilaterally. Neck: Supple. No carotid bruit. No JVD. Heart: RRR. Lungs: No respiratory distress. Good air movement. No rhonchi, wheezing, rales. Abdomen: Soft and nontender. Legs: No clubbing, cyanosis, edema. Skin: Warm and dry. Neuro: Alert and oriented X 3. Cranial Nerves II-XII grossly intact. No peripheral motor deficits. Musculoskeletal: All major joints and bones are not tender with no limited ROM. I reviewed EMS notes. I reviewed all diagnostic test results: My interpretation of the EKG is: Sinus rhythm (61 bpm) with PVCs and nonspecific ST-T changes. My interpretation of the chest x-ray is NAD. My review of the Head/Brain CT report is: No acute findings. My review of the Head/Neck CTA report is: NAD. Blood tests and urine tests unremarkable. At this point, diagnoses include: Stroke-like Symptoms Possible vertigo Hypertensive urgency Treatment here included: IVF Zofran 4 mg IV Oral clonidine 0.3 mg Meclizine 25 mg PO Scopolamine patch ASA 81 mg Plavix 300 mg Some improvement noted. I discussed the case telehealth neurologist and our hospitalist. About the presentation and exam and diagnostics and treatments here. And need of further care in the hospital. Will accept the patient. Travis Franco MD Patient data External records reviewed:: [facility] previous records (Reviewed prior ED records from 01/18/25. Patient was seen for Abdominal pain.) and EMS form Clinical information provided by:: EMS Social determinants that could affect healthcare access:: none Patient has the following chronic illnesses:: Hepatitis (A), Arthritis, Gout How is presenting disease/condition affected by chronic disease/condition?: uneffected by Evaluation data The following diagnostics were reviewed and interpreted by me:: lab results, radiology exam(s) and EKG tracing(s) (My interpretation of the EKG is: Sinus rhythm (61 bpm) with PVCs and nonspecific ST-T changes. Travis Franco MD) Lab and/or radiology exams considered but not ordered:: None Interpretation Summary: I reviewed all diagnostic test results: My interpretation of the EKG is: Sinus rhythm (61 bpm) with PVCs and nonspecific ST-T changes. My interpretation of the chest x-ray is NAD. My review of the Head/Brain CT report is: No acute findings. My review of the Head/Neck CTA report is: NAD. Blood tests and urine tests unremarkable. Medications / Prescriptions Medications or Prescriptions considered but not ordered:: None Medication administrations:: Medication Administration History Acetaminophen (Acetaminophen 325 Mg Tablet) 650 mg PO Q6H PRN PRN Reason: Fever >100.4 or pain 1-3 Stop: 04/30/25 21:59 Last Admin: 04/02/25 08:22 Dose: 650 mg Documented By: Admin: 04/01/25 04:48 Dose: 650 mg Documented By: JACOBO Aspirin (Aspirin Ec 81 Mg Tabec) 81 mg PO QDAY ERNIE Stop: 05/01/25 08:59 Last Admin: 04/02/25 08:21 Dose: 81 mg Documented By: Admin: 04/01/25 08:29 Dose: 81 mg Documented By: NATY Atorvastatin Calcium (Atorvastatin Calcium 10 Mg Tablet) 40 mg PO HS ERNIE Stop: 05/01/25 20:59 Last Admin: 04/02/25 21:16 Dose: 40 mg Documented By: Admin: 04/01/25 20:56 Dose: 40 mg Documented By: DANIE Diphenhydramine HCl (Diphenhydramine Inj 50 Mg/Ml Vial) 25 mg IVP X1 PRN PRN Reason: hives/allergic rection Stop: 05/01/25 00:46 Docusate Sodium (Docusate Sod 100 Mg Capsule) 100 mg PO QDAY ERNIE; Protocol Stop: 05/01/25 08:59 Last Admin: 04/02/25 08:21 Dose: 100 mg Documented By: Admin: 04/01/25 08:29 Dose: 100 mg Documented By: NATY Famotidine (Famotidine Inj 10 Mg/Ml Vial 2 Ml) 20 mg IVP Q12HR ERNIE Stop: 05/01/25 08:59 Last Admin: 04/02/25 21:16 Dose: 20 mg Documented By: Admin: 04/02/25 08:22 Dose: 20 mg Documented By: Admin: 04/01/25 20:56 Dose: 20 mg Documented By: Admin: 04/01/25 08:29 Dose: 20 mg Documented By: NATY Labetalol HCl (Labetalol Inj 5 Mg/Ml Vial 20 Ml) 10 mg IVP Q4HR PRN PRN Reason: SBP>220 Stop: 04/30/25 22:08 Ondansetron HCl (Ondansetron Inj 2 Mg/Ml Inj 2 Ml) 4 mg IVP Q4HR PRN PRN Reason: NAUSEA OR VOMITING Stop: 04/30/25 20:57 Last Admin: 03/31/25 22:00 Dose: 4 mg Documented By: ABDIRASHID Discontinued Medications Aspirin (Aspirin Ec 81 Mg Tabec) 81 mg PO X1 ONE Stop: 03/31/25 21:45 Last Admin: 03/31/25 21:59 Dose: 81 mg Documented By: ABDIRASHID Clonidine (Clonidine Hcl 0.1 Mg Tablet) 0.3 mg PO X1 ONE Stop: 03/31/25 21:44 Last Admin: 03/31/25 21:59 Dose: 0.3 mg Documented By: ABDIRASHID Clopidogrel Bisulfate (Clopidogrel Bisulfate 75 Mg Tablet) 300 mg PO X1 ONE Stop: 03/31/25 21:45 Last Admin: 03/31/25 22:00 Dose: 300 mg Documented By: ABDIRASHID Clopidogrel Bisulfate (Clopidogrel Bisulfate 75 Mg Tablet) 75 mg PO QDAY [facility] Stop: 05/01/25 08:59 Last Admin: 04/01/25 08:29 Dose: 75 mg Documented By: NATY Hydromorphone HCl (Hydromorphone Hcl 2 Mg Tablet) 2 mg PO Q4HR PRN PRN Reason: Pain 5-10 Stop: 04/06/25 00:43 Sodium Chloride (Ns) 1,000 mls @ 100 mls/hr IV Q10H ERNIE Stop: 04/30/25 20:59 Last Admin: 04/02/25 07:16 Dose: Not Given Documented By: JOE Non-Admin Reason: Discontinued Admin: 04/01/25 18:02 Dose: 100 mls/hr Documented By: Infusion: 04/01/25 18:02 Dose: Infused Documented By: Admin: 04/01/25 08:32 Dose: 100 mls/hr Documented By: Infusion: 04/01/25 08:04 Dose: Infused Documented By: Admin: 03/31/25 22:04 Dose: 100 mls/hr Documented By: ABDIRASHID Labetalol HCl (Labetalol Inj 5 Mg/Ml Vial 20 Ml) 10 mg IVP Q15M PRN PRN Reason: HYPER Meclizine HCl (Meclizine Hcl 25 Mg Tablet) 25 mg PO X1 ONE Stop: 03/31/25 22:08 Last Admin: 03/31/25 22:42 Dose: 25 mg Documented By: PRIYANKA Morphine Sulfate (Morphine Sulf Inj 4 Mg/Ml Vial) 6 mg IV X1 ONE Stop: 03/31/25 21:44 Last Admin: 03/31/25 22:00 Dose: 6 mg Documented By: ABDIRASHID Nicotine (Nicotine Patch 7 Mg/24 Hr Patch.Td24) 7 mg TOP QDAY ERNIE Stop: 05/01/25 08:59 Potassium Chloride (Potassium Chloride 20 Meq Tabcr) 40 meq PO X1 ONE Stop: 03/31/25 22:54 Last Admin: 03/31/25 23:30 Dose: 40 meq Documented By: ABDIRASHID Scopolamine (Scopolamine 1 Mg Tdsy) 1 mg TOP X1 ONE Stop: 03/31/25 22:08 Last Admin: 03/31/25 22:42 Dose: 1 mg Documented By: PRIYANKA Tenecteplase (Tenecteplase Inj 50 Mg Vial) Confirm Administered Dose 50 mg .ROUTE .STK-MED ONE Stop: 03/31/25 21:32 Last Admin: 03/31/25 21:44 Dose: Not Given Documented By: ABDIRASHID Non-Admin Reason: Override Medication Treatment here FROM ME included: IVF Zofran 4 mg IV Oral clonidine 0.3 mg Meclizine 25 mg PO Scopolamine patch ASA 81 mg Plavix 300 mg Consultations Consultation(s) initiated? (list below): Yes Consultation #1 (Physician, Specialty, Details): I discussed the case telehealth neurologist and our hospitalist. About the presentation and exam and diagnostics and treatments here. And need of further care in the hospital. Will accept the patient. Diagnosis Neuro Differential Diagnosis: convulsions, delirium, subarachnoid hemorrhage, peripheral neuropathy, cerebrovascular accident and transient cerebral ischemia Most likely diagnosis given after review of the tests above:: Stroke-like Symptoms Vertigo Hypertensive urgency Admission Indicated Admission indicated?: indicated Explain why admission is indicated or not indicated:: Stroke-like Symptoms Admission Request Was there a request for admission?: Yes Admission Attestation Admission request attestation: Discussed case with Hospitalist service regarding admission. Discussed patients ED course, exam findings, labs, and radiology results. Agreeed to accept the patient for admission. Disposition Plan Disposition Plan: Admit Critical Care Time Critical Care Time Critical Care Time: Yes Total Critical Care Time (min.): 36 Attestation: Due to a high probability of clinically significant, life threatening deterioration, the patient required my highest level of preparedness to intervene emergently and I personally spent this critical care time directly and personally managing the patient. This critical care time included obtaining a history; examining the patient; ordering and review of studies; arranging urgent treatment with development of a management plan; evaluation of patient's response to treatment; frequent reassessment; and discussions with family and other providers. It was exclusive of separately billable procedures and treating other patients and teaching time. Travis Franco MD Discharge Plan Plan Patient Disposition: Admit Acute Care w/in Hospital Problem List Clinical Impression: Stroke-like symptoms, Vertigo, Hypertensive urgency
[2025-03-31 21:00] VITALS: BP 203/49; PULSE 62; PULSE 63; RESP 18; RESP 95; TEMP 36.6; O2SAT 97
[2025-03-31 21:25] VITALS: BMI 37.5
[2025-03-31 21:25] LABS: Basophils # (Auto) 0.1 Thou/mm3 (0.0-0.2); Basophils % (Auto) 1 % (0-2.5); Eosinophils # (Auto) 0.3 Thou/mm3 (0.0-0.5); Eosinophils % (Auto) 5 % (0-10); Hematocrit 40.1 % (41.0-53.0); Hemoglobin 14.0 g/dL (13.5-16.0); Immature Granulocytes Auto 0.02 Thou/mm3 (0.00-0.00); Lymphocytes # (Auto) 2.2 Thou/mm3 (1.0-4.8); Lymphocytes % (Auto) 32 % (10-50); Mean Corpuscular HGB Conc 34.9 g/dl (31.0-37.0); Mean Corpuscular Hemoglobin 32.5 pg (25.0-35.0); Mean Corpuscular Volume 93 fL (80-100); Monocytes # (Auto) 0.5 Thou/mm3 (0.0-0.8); Monocytes % (Auto) 8 % (0-12); Neutrophils # (Auto) 3.6 Thou/mm3 (1.8-7.7); Neutrophils % (Auto) 53 % (37-80); Nucleated Red Blood Cell # 0.00 Thou/mm3 (0.00-0.00); Nucleated Red Blood Cell % 0 /100 WBC (0); Platelet Count 137 Thou/mm3 (140-440); RDW Standard Deviation 43.3 fL (35.1-43.9); Red Blood Count 4.31 Miln/mm3 (4.50-5.90); White Blood Count 6.7 Thou/mm3 (3.8-10.6)
[2025-03-31 21:26] VITALS: PULSE 58; RESP 18; O2SAT 96
[2025-03-31 21:34] LABS: INR 1.2 (0.9-1.3); Partial Thromboplastin Time 25.1 Seconds (22.0-36.0); Prothrombin Time 12.4 Seconds (9.0-12.2)
[2025-03-31 21:42] LABS: Alanine Aminotransferase 22 U/L (10-49); Albumin, Serum 4.3 gm/dL (3.4-4.8); Albumin/Globulin Ratio 1.4 (1.2-2.2); Alcohol, Blood Medical < 3.0 mg/dL (0-10.0); Alkaline Phosphatase 77 U/L (46-116); Anion Gap 11 (7-16); Aspartate Amino Transferase 42 U/L (0-34); BUN/Creatinine Ratio 11 Ratio (12-20); Bilirubin,Total 0.9 mg/dL (0.3-1.2); Blood Urea Nitrogen 8 mg/dL (9-23); Calcium 9.4 mg/dL (8.3-10.6); Calcium (Corrected) 9.4 mg/dL (8.5-10.1); Carbon Dioxide 22.7 mMol/L (20.0-31.0); Chloride 109 mMol/L (98-107); Creatinine (Component) 0.7 mg/dL (0.6-1.3); Estimated Creatinine Clearance 89.3 mL/min (>60); Globulin 3.0 gm/dL (2.3-3.5); Glucose 124 mg/dL (74-106); Magnesium 2.0 mg/dL (1.6-2.6); Osmolality,Calculated 284 (275-295); Potassium 3.4 mMol/L (3.4-5.1); Sodium 143 mMol/L (136-145); Total Protein 7.3 gm/dL (5.7-8.2); Troponin I < 0.002 ng/mL (0.0-0.045); eGFR > 60 See Note
[2025-03-31 21:45] LABS: B-Type Natriuretic Peptide 78 pg/mL (0-100)
--- NOTE | 2025-03-31 21:45 | ESCONSULT_ITS ---
Tele Neuro Consultation Consultation Date 03/31/25 Most Recent Vital Signs Last Vital Signs Temp 97.9 F 03/31/25 21:00 Pulse 63 03/31/25 21:00 Resp 18 03/31/25 21:00 BP 203/49 H 03/31/25 21:00 Pulse Ox 97 03/31/25 21:00 O2 Del Method Room Air 03/31/25 21:00 Laboratory-Coagulation Panel PT 12.4 Seconds (9.0-12.2) H 03/31/25 20:58 INR 1.2 (0.9-1.3) 03/31/25 20:58 APTT 25.1 Seconds (22.0-36.0) 03/31/25 20:58 Consultation Narrative [facility] TeleNeurology Consult Services Patient Name:???Main Love Date of :???1945 Identification Number:??? Date of Service:???03/31/2025 20:56:33 Diagnosis:?R42 - Dizziness/ Vertigo/ Giddiness Impression: ?79 yo M who presents left sided weakness, nausea/vomiting and dizziness. CT head personally reviewed and does not show hemorrhage or definitive acute developing ischemic stroke. Discussed with patient that acute ischemic stroke certainly a possible etiology for his sudden onset of dizziness/imbalance and as such, we discussed TNK as follows: ? ?I discussed contraindications to thrombolytics with patient and no contraind ications to thrombolytics reported. I discussed with patient that the major risk of thrombolytics (such as TNK/tPA) is bleeding, which can occur anywhere in the body and can be significant enough to cause symptoms and worsening of neurologic status. Approximately 3 out of 100 people that receive TNK/tPA do worse after administration (usually due to bleeding complications), with 1 out of 100 dying due to complications from TNK/tPA administration. I explained that the reason the medication is offered is approximately 1/3 of patient that receive thrombolytics (TNK/tPA) have improvement in their neurologic status after administration. After our discussion of these risks/benefits, the patient (and also at bedside for discussion) elected to defer administration of TNK at this time. ? ?CTA head/neck pending. Pending acute abnormalities on CTA, would admit for further workup of possible stroke and also give medications that could help with dizziness symptomatically. Possible hypertensive urgency could be etiology of symptoms if MRI negative; allow for permissive HTN while MRI pending however. Full recommendations as follows: Our recommendations are outlined below. Recommendations: ? Stroke/Telemetry Floor ? Neuro Checks (Q4) ? Bedside Swallow Eval ?-f/u CTA head/neck ?-frequent neuro checks/vitals during admission ?-Goal blood pressure 110-220 systolic for now ? --goal 110-160 if MRI negative for acute ischemic stroke however ?-Euglycemia and Avoid Hyperthermia (PRN Acetaminophen) ?-NPO with maintenance IVFs (including no po medications) until bedside swallow screening performed (speech/swallow therapy if pt fails and also keep pt NPO) ?-obtain MRI brain w/o contrast (routine) ?-obtain Lipid panel, Hb A1c, TTE ?-Place on telemetry ?-Bolus with Clopidogrel 300 mg bolus x1 and initiate dual antiplatelet therapy with Aspirin 81 mg daily and Clopidogrel 75 mg daily ?-Start atorvastatin 40 mg po qhs ?-dvt ppx per primary team ?-obtain UA, CXR, CMP, CBC if not already done ?-obtain orthostatics ?-can trial meclizine prn ?-PT/OT/ST consults - inpatient rehab if recommended ?-Please notify neurology immediately for change in exam Sign Out: ? Discussed with Emergency Department Provider Advanced Imaging:Advanced imaging has been ordered. Results pending. Metrics: Last Known Well: 03/31/2025 19:00:00 Arrival Time: 03/31/2025 20:56:00 Initial Response Time: 03/31/2025 20:57:56Symptoms: left sided weakness, dizziness and N/V. Initial patient interaction: 03/31/2025 21:13:52 NIHSS Assessment Completed: 03/31/2025 21:22:13Patient is not a candidate for Thrombolytic. Thrombolytic Medical Decision: 03/31/2025 21:36:11Patient was not deemed candidate for Thrombolytic because of following reasons: Patient/Family declined . CT Head: CT head unremarkable for acute infarction or hemorrhage per Radiology: CT head personally reviewed and does not show hemorrhage or definitive acute developing ischemic stroke Primary Provider Notified of Diagnostic Impression and Management Plan on: 03/31/2025 21:44:44 History of Present Illness:Patient is a 79 year old Male. Patient was brought by EMS for symptoms of left sided weakness, dizziness and N/V. 79 yo M who presents left sided weakness, nausea/vomiting and dizziness. Per report, patient with N/V at 5 pm. At 1900 became dizzy, had trouble sitting up straight and left sided weakness. Patient states around 5 to 530 he vomited. [place] back to normal after that and was sitting on couch, watching tv with . [place] normal up until 7 pm when he started feel dizzy (lightheaded and room spinning sensation) and was having trouble walking. Had some slurred speech as well. Vision was a little blurred earlier but seeing better now. Denies unilateral weakness/numbness but states he felt weak all over . Had headache earlier but not now. Dizziness is ongoing. Denies feeling weak on his left side specifically. Also has ringing in his ears. Uses cane occasionally. 212 lbs bed weight ? Past Medical History: ?Hypertension ?There is no history of Diabetes Mellitus ?There is no history of Atrial Fibrillation ?There is no history of Stroke Other PMH:? pain meds for shingles (gabapentin), glaucoma Medications: No Anticoagulant use? No Antiplatelet use Reviewed EMR for current medications Allergies:? Reviewed Social History: Smoking: No Family History: There is no family history of premature cerebrovascular disease pertinent to this consultation ROS : 14 Points Review of Systems was performed and was negative except mentioned in HPI. ? ? Examination: BP(146/79),?Pulse(67),?Blood Glucose(143) 1A: Level of Consciousness - Alert; keenly responsive?+ 0 1B: Ask Month and Age - Both Questions Right?+ 0 1C: Blink Eyes & Squeeze Hands - Performs Both Tasks?+ 0 2: Test Horizontal Extraocular Movements - Normal?+ 0 3: Test Visual Coles - No Visual Loss?+ 0 4: Test Facial Palsy (Use Grimace if Obtunded) - Normal symmetry?+ 0 5A: Test Left Arm Motor Drift - No Drift for 10 Seconds?+ 0 5B: Test Right Arm Motor Drift - No Drift for 10 Seconds?+ 0 6A: Test Left Leg Motor Drift - No Drift for 5 Seconds?+ 0 6B: Test Right Leg Motor Drift - No Drift for 5 Seconds?+ 0 7: Test Limb Ataxia (FNF/Heel-Meraz) - No Ataxia?+ 0 8: Test Sensation - Normal; No sensory loss?+ 0 9: Test Language/Aphasia - Normal; No aphasia?+ 0 10: Test Dysarthria - Normal?+ 0 11: Test Extinction/Inattention - No abnormality?+ 0 NIHSS Score:?0 NIHSS Free Text :?cannot sit up on his own without assistance due to dizziness/imbalance (so did not try to have him walk) Pre-Morbid Modified Bowie Scale: 2 Points = Slight disability; unable to carry out all previous activities, but able to look after own affairs without assistance Spoke with :?ED provider Dr. Franco This consult was conducted in real time using interactive audio and video technology. Patient was informed of the technology being used for this visit and agreed to proceed. Patient located in hospital and provider located at home/office setting. Patient is being evaluated for possible acute neurologic impairment and high probability of imminent or life-threatening deterioration. I spent total of 50 minutes providing care to this patient, including time for face to face visit via telemedicine, review of medical records, imaging studies and discussion of findings with providers, the patient and/or family. Dr Sheng Cedillo [facility] For Inpatient follow-up with [facility] physician please call [facility] at . As we are not an outpatient service for any post hospital discharge needs please contact the hospital for assistance. If you have any questions for the [facility] physicians or need to reconsult for clinical or diagnostic changes please contact us via [facility] at . Non-radiologist review of imaging performed to assist with emergent clinical decision-making. Remote physician workstations do not possess the same resolution, calibration, or diagnostic capabilities as hospital-based radiology reading stations, and formal radiologist read is necessary. Signature :?Sheng Cedillo ?
--- NOTE | 2025-03-31 21:45 | PC.NURSE ---
2055 Dr. Cedillo from tele neurology called to assess to r/o stroke.
--- NOTE | 2025-03-31 21:47 | PC.NURSE ---
Dr. Cedillo spoke to patient and to notified them that CT Scan of head was negative for stroke however recommends that patient should consider getting TNKase medication. Provider explained the risk and benefits of medication. Per the patient and they are refusing medication at this time. Dr. Cedillo will talk to ER provider.
[2025-03-31 21:59] VITALS: BP 196/83; PULSE 60
[2025-03-31] MEDS: ASPIRIN EC 81 MG TABEC PO (21:59)
[2025-03-31] MEDS: MORPHINE SULF INJ 4 MG/ML VIAL 6 MG IV (22:00)
[2025-03-31] MEDS: ONDANSETRON INJ 2 MG/ML INJ 2 ML 4 MG IVP (22:00)
[2025-03-31] MEDS: CLOPIDOGREL BISULFATE 75 MG TABLET 300 MG PO (22:00)
[2025-03-31] MEDS: SODIUM CHLORIDE 0.9% 1000 ML 1,000 ML 100 ML IV (22:04)
--- NOTE | 2025-03-31 22:04 | ECHO_ITS ---
Patient Info Name: Main Love Age: 79 years : 1945 Gender: Male Ht: 160 cm Wt: 96 kg BSA: 2.11 m2 BP: 106 / 54 mmHg Heart Rhythm: Bradycardia Exam Date: 04/01/2025 11:43 AM Admit Date: 03/31/2025 Site: [facility] Patient Status: I Technical Quality: Poor Exam Type: CA echo doppler complete Reason for Poor Study: poor echocardiographic windows Rehabilitation Services Counselor: Moriah Kohler Ordering Physician: Oral Kimble Study Info Indications Stroke work up - Primary Location: S2NX Left Ventricular Outflow Tract Name Value Normal LVOT 2D LVOT Diameter 2.1 cm LVOT Doppler LVOT Peak Velocity 79 cm/s LVOT Mean Gradient 1 mmHg LVOT VTI 24 cm LVOT VTI/AV VTI Ratio 0.6 LVOT Stroke Volume 82 ml Mitral Valve Name Value Normal MV Doppler MV Mean Gradient 2 mmHg MV Area (Cont Eq VTI) 2.8 cm2 MV Annular TDI MV Septal e' Velocity 4.9 cm/s MV Lateral e' Velocity 6.0 cm/s MV e' Average 5.44 cm/s Tricuspid Valve Name Value Normal TV Regurgitation Doppler TR Peak Velocity 259 cm/s TV Annular TDI TV Lateral Madhavi s' Velocity 11.2 cm/s >=9.5 Aortic Valve Name Value Normal AV Doppler AV Peak Velocity 154 cm/s AV Mean Gradient 4 mmHg AV VTI 42 cm AV Area (Cont Eq VTI) 2.0 cm2 >=3.0 AV Area (Cont Eq Blaze) 1.8 cm2 AV DI (Blaze) 0.51 AV Regurgitation 2D LVOT Area 3.5 cm2 Ventricles Name Value Normal LV Dimensions 2D/MM LVOT Diameter 2.1 cm LV Fractional Shortening/Ejection Fraction 2D/MM LV Diastolic Volume (4C MOD) 138 ml LV EF (4C MOD) 45 % LV Diastolic Volume (2C MOD) 135 ml LV EF (2C MOD) 37 % LV Diastolic Volume (BP MOD) 143 ml 62-150 LV Diastolic Volume Index (BP MOD) 68 ml/m2 34-74 LV Systolic Volume (BP MOD) 82 ml 21-61 LV Systolic Volume Index (BP MOD) 39 ml/m2 11-31 LV EF (BP MOD) 43 % 52-72 LV Diastolic Length (4C) 6.6 cm LV Systolic Length (4C) 5.8 cm LV Stroke Volume (4C MOD) 62 ml RV Dimensions 2D/MM TV Lateral Madhavi s' Velocity 11.2 cm/s >=9.5 Atria Name Value Normal LA Dimensions LA Volume (4C A-L) 49 ml LA Volume (BP A-L) 62 ml Left Ventricle Left ventricular chamber dimension is normal. Left ventricular systolic function is mildly reduced with visually estimated ejection fraction of 45-50%. There is normal geometry noted in the left ventricle. Left ventricular segmental wall motion is normal. There is indeterminate diastolic function in the left ventricle. Right Ventricle Right ventricular chamber dimension is mildly enlarged. Right ventricular systolic function is normal. Left Atrium Left atrial chamber dimension is normal. Right Atrium Right atrial chamber dimension is normal. Aortic Valve The aortic valve is trileaflet. There is mild aortic valve sclerosis. There is no aortic valve stenosis with a peak velocity of 154 cm/s, mean gradient of 4 mmHg, and aortic valve area of 2.0 cm2. There is no aortic valve regurgitation. Pulmonic Valve The pulmonic valve is not well visualized. There is no pulmonic valve stenosis. There is no pulmonic regurgitation. Mitral Valve The mitral valve has normal leaflets. There is mild to moderate mitral valve stenosis. There is trace mitral valve regurgitation. Tricuspid Valve The tricuspid valve leaflets are normal. There is no tricuspid valve stenosis. There is trace tricuspid valve regurgitation. Pericardium/Pleural The pericardium appears normal. There is no pericardial effusion. No pleural effusion visualized. Aorta The aortic measurements are indexed to age and body surface area. The prox ascending aorta is not well visualized. The abdominal aorta is not well visualized. Summary 1. The echocardiogram is normal by two-dimensional, color flow imaging, and Doppler interrogation. 2. Left ventricle size is normal and systolic function is mildly reduced. Estimated ejection fraction is 45-50%. There is indeterminate diastolic function. There is normal geometry noted. 3. Right ventricle chamber size is mildly enlarged with normal systolic function. 4. There is mild aortic valve sclerosis with no stenosis. 5. Moderate mitral annular calcification is present. 6. There is trace mitral valve regurgitation. 7. There is trace tricuspid valve regurgitation. 8. Agitated saline contrast was performed, with no evidence of intra-cardiac shunt. Report Signatures Finalized by Edith Mcbride on 04/01/2025 04:57 PM
[2025-03-31 22:08] VITALS: BP 188/81; PULSE 62; RESP 20; TEMP 36.6; O2SAT 95
[2025-03-31 22:24] LABS: Collection Type, Urine Clean Catch; Squamous Epithelial Cell,Urine 0 /hpf (0-5)
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
[2025-03-31 22:34] LABS: Bilirubin,Urine Negative (Negative); Blood,Urine Negative (Negative); Clarity,Urine Clear (Clear/Hazy); Color,Urine Colorless (Lt Yel-Yel); Culture Indicated,Urine Not Indicated; Glucose, Urine Negative (Negative); Ketones,Urine Trace (Negative); Leukocyte Esterase,Urine Negative (Negative); Nitrite,Urine Negative (Negative); PH,Urine 7.5 (5.0-7.0); Protein,Urine Negative (Neg - Trace); RBC,Urine 1 /hpf (0-3); Specific Gravity,Urine 1.029 (1.001-1.035); Urobilinogen,Urine Negative mg/dL (0.0-1.0); WBC,Urine 1 /hpf (0-5)
[2025-03-31 22:37] LABS: Amphetamine/Methamp Scrn,U Negative (Negative); Barbiturate Screen,Urine Negative (Negative); Benzodiazepines Screen,Urine Negative (Negative); Benzoylecgonine Screen, Ur Negative (Negative); Fentanyl Screen,Urine Negative (Negative); Opiate Screen,Urine Negative (Negative); THC Screen,Urine Negative (Negative)
[2025-03-31] MEDS: SCOPOLAMINE 1 MG TDSY TOP (22:42)
[2025-03-31] MEDS: MECLIZINE HCL 25 MG TABLET PO (22:42)
[2025-03-31 23:32] VITALS: BP 161/84; PULSE 72; RESP 17; TEMP 36.6; O2SAT 95
[2025-03-31 23:47] VITALS: PULSE 60; RESP 18; RESP 95
[2025-03-31 23:51] LABS: Base Excess -2 (-3-3); HCO3 23 mEq/L (20-26); Inspired Oxygen, FIO2 21 %; O2 Saturation 94 % (91-98); PCO2 42 mmHg (32.0-48.0); PO2 69 mmHg (83-108); pH, Arterial 7.36 (7.35-7.45)
[2025-03-31 23:55] LABS: Allen Test Performed/OK; Puncture Site Left Radial
[2025-04-01] VITALS (16 sets, daily range): BP systolic 106–155; BP diastolic 54–105; PULSE 30–79; RESP 16–99; TEMP 36–36.7; O2SAT 92–99; BMI 35.4
--- NOTE | 2025-04-01 | XR_ITS ---
Examinations: MRI Brain without intravenous contrast. MRA brain without intravenous contrast. MRA carotids without intravenous contrast 3-D vascular reconstructions Date and time of exam: April 01, 2025, 1420 hours INDICATIONS: Stroke alert yesterday, onset focal neurologic deficit including dizziness Technique: Multiple axial and sagittal images of the brain have been obtained MRA brain carotid images without contrast obtained, including 3-D postprocessing, vascular maximum intensity projection images Findings: [place] is not enlarged. The optic chiasm and infundibular stalk are not remarkable. Prepontine and interpeduncular cisterns are not enlarged. No localized enlargement of the medulla or marco antonio. Fourth ventricle and cerebellar tonsils normal in position. Subacute hemorrhage is not seen. Fourth ventricle is midline. Mass in the cerebellopontine angle region is not evident. 7th and 8th nerve complexes exhibits symmetry. Globes are symmetrical with no retro-orbital mass. Increased white matter signal moderate Diffusion-weighted images demonstrate no focus of restricted diffusion Mass-effect upon the ventricular system is not identified. MRA brain images no large vessel occlusions Impression: Negative for acute hemorrhage mass effect or midline shift No acute infarct Moderate chronic microvascular white matter change
--- NOTE | 2025-04-01 03:54 | PC.NURSE ---
report received from [facility].
[2025-04-01] MEDS: ACETAMINOPHEN 325 MG TABLET 650 MG PO (04:48)
--- NOTE | 2025-04-01 05:35 | PC.NURSE ---
DR SANDOVAL NOTIFIED OF PT'S HR 42-45 SB WHILE SLEEPING, AWAKEN EASILY TO CALL OF NAME, HR GOES UP TO MID 50'S. BP 142/64, RR 16. NO NEW ORDER, CONTINUE WITH PLAN OF CARE.
[2025-04-01 06:33] LABS: Basophils # (Auto) 0.0 Thou/mm3 (0.0-0.2); Basophils % (Auto) 1 % (0-2.5); Eosinophils # (Auto) 0.1 Thou/mm3 (0.0-0.5); Eosinophils % (Auto) 2 % (0-10); Hematocrit 35.7 % (41.0-53.0); Hemoglobin 12.2 g/dL (13.5-16.0); Immature Granulocytes Auto 0.01 Thou/mm3 (0.00-0.00); Lymphocytes # (Auto) 1.0 Thou/mm3 (1.0-4.8); Lymphocytes % (Auto) 22 % (10-50); Mean Corpuscular HGB Conc 34.2 g/dl (31.0-37.0); Mean Corpuscular Hemoglobin 32.9 pg (25.0-35.0); Mean Corpuscular Volume 96 fL (80-100); Monocytes # (Auto) 0.5 Thou/mm3 (0.0-0.8); Monocytes % (Auto) 11 % (0-12); Neutrophils # (Auto) 3.0 Thou/mm3 (1.8-7.7); Neutrophils % (Auto) 64 % (37-80); Nucleated Red Blood Cell # 0.00 Thou/mm3 (0.00-0.00); Nucleated Red Blood Cell % 0 /100 WBC (0); Platelet Count 111 Thou/mm3 (140-440); RDW Standard Deviation 44.3 fL (35.1-43.9); Red Blood Count 3.71 Miln/mm3 (4.50-5.90); White Blood Count 4.7 Thou/mm3 (3.8-10.6)
[2025-04-01 06:47] LABS: Alanine Aminotransferase 17 U/L (10-49); Albumin, Serum 3.5 gm/dL (3.4-4.8); Albumin/Globulin Ratio 1.5 (1.2-2.2); Alkaline Phosphatase 69 U/L (46-116); Aspartate Amino Transferase 30 U/L (0-34); BUN/Creatinine Ratio 13 Ratio (12-20); Bilirubin,Total 0.6 mg/dL (0.3-1.2); Blood Urea Nitrogen 9 mg/dL (9-23); Calcium 8.3 mg/dL (8.3-10.6); Calcium (Corrected) 8.7 mg/dL (8.5-10.1); Cardiac Risk Estimate 4.1 RATIO (4.0-6.7); Chloride 109 mMol/L (98-107); Cholesterol 119 mg/dL (132-200); Creatinine (Component) 0.7 mg/dL (0.6-1.3); Estimated Creatinine Clearance 86.7 mL/min (>60); Globulin 2.3 gm/dL (2.3-3.5); Glucose 118 mg/dL (74-106); HDL Cholesterol 29 mg/dL (40-60); LDL Cholesterol,Calculated 68 mg/dL (0-130); Magnesium 1.9 mg/dL (1.6-2.6); Osmolality,Calculated 284 (275-295); Phosphorous 3.3 mg/dL (2.4-5.1); Potassium 4.0 mMol/L (3.4-5.1); Sodium 143 mMol/L (136-145); Thyroid Stimulating Hormone 2.79 uIU/mL (0.55-4.78); Total Protein 5.8 gm/dL (5.7-8.2); Triglycerides 111 mg/dL (30-150); eGFR > 60 See Note
[2025-04-01 06:56] LABS: Glucose Estimated Average 105 mg/dL (80-131); Hemoglobin A1C 5.3 % Hgb (4.8-6.0)
[2025-04-01 07:00] LABS: Carbon Dioxide 23.2 mMol/L (20.0-31.0)
[2025-04-01 07:04] LABS: Anion Gap 11 (7-16)
[2025-04-01] MEDS: DOCUSATE SOD 100 MG CAPSULE PO (08:29)
[2025-04-01] MEDS: FAMOTIDINE INJ 10 MG/ML VIAL 2 ML 20 MG IVP ×2 (08:29→20:56)
[2025-04-01] MEDS: ASPIRIN EC 81 MG TABEC PO (08:29)
[2025-04-01] MEDS: CLOPIDOGREL BISULFATE 75 MG TABLET PO (08:29)
[2025-04-01] MEDS: SODIUM CHLORIDE 0.9% 1000 ML 1,000 ML 100 ML IV ×2 (08:32→18:02)
--- NOTE | 2025-04-01 09:15 | CHAP ---
Responded to Rapid Response. All was week. No need for pipe stress engineer.
[2025-04-01 09:57] LABS: Troponin I < 0.020 ng/mL (0.0-0.045)
--- NOTE | 2025-04-01 11:19 | PC.NURSE ---
patient heart rate- went down to 34- rapid response team was called. patient complaint of being sleepy and tired.
--- NOTE | 2025-04-01 11:32 | PC.PT ---
Patient was approached for PT eval at 0945. Patient had a rapid response called for bradycardia with his HR in the 30s. Per AYE Morales, hold PT eval for today as it is not safe to work with patient due to his bradycardia. Will hold PT eval today and re-attempt at another time.
--- NOTE | 2025-04-01 12:30 | CHAP ---
Patient was visited by the Spiritual Care Volunteer who prayed for them. (Volunteer was in the hospital from 09:15-12:30)
--- NOTE | 2025-04-01 13:31 | ESPR_ITS ---
<Statement entered by Gonzalo Landeros MD - 04/03/25 09:20> I have personally seen and examined the patient, agree with residents assessment and plan Patient plan of care was discussed with the attending physician, Dr. Rissa Landeros, PGY2 Documentation for date of: 04/01/25 Subjective Subjective Interval history: The patient experienced an episode of sinus bradycardia with HR 38 (manual HR 56). No symptoms of chest pain, syncope, or dizziness at that time. HR improved after observation and was in the 50s-60s upon follow-up. The patient reports feeling slightly more tired than usual but otherwise denies new symptoms like nausea, vomiting, slurred speech, or weakness. This morning: Dizziness improved, headache resolved, and vision returned to baseline. No nausea or vomiting. MRI brain and echo still pending. Exam Vital Signs Temp Pulse Resp BP Pulse Ox O2 Del Method 96.8 F 38 L 20 120/62 99 Room Air 04/01/25 12:09 04/01/25 12:09 04/01/25 12:09 04/01/25 12:09 04/01/25 12:09 04/01/25 12:09 Narrative Exam General: AOx4, NAD, well-nourished, no cyanosis, pallor, or diaphoresis HEENT: Normocephalic, atraumatic, no facial asymmetry, PERRLA, EOMI Cardiac: Regular rate and rhythm, no murmurs, rubs, or gallops. Respiratory: Clear to auscultation, normal effort, no accessory muscle use Abdomen: Soft, non-tender, normal bowel sounds Neuro: NIHSS 0. No motor deficits, CN II-XII intact, no ataxia, no sensory loss, normal coordination and speech Extremities: No edema or abnormal range of motion Objective Labs 04/02/25 05:44 04/02/25 05:44 Labs: Laboratory Results - last 24 hr 03/31/25 03/31/25 03/31/25 20:58 22:07 23:47 WBC 6.7 RBC 4.31 L Hgb 14.0 Hct 40.1 L MCV 93 MCH 32.5 MCHC 34.9 RDW Std Deviation 43.3 Plt Count 137 L Neut % (Auto) 53 Lymph % (Auto) 32 [place] % (Auto) 8 Eos % (Auto) 5 Baso % (Auto) 1 Neut # (Auto) 3.6 Lymph # (Auto) 2.2 [place] # (Auto) 0.5 Eos # (Auto) 0.3 Baso # (Auto) 0.1 Immature Gran # (Auto) 0.02 H Absolute Nucleated RBC 0.00 Immature Gran % 0 Nucleated RBC % 0 PT 12.4 H INR 1.2 APTT 25.1 Puncture Site Left Radial ABG pH 7.36 ABG pCO2 42 ABG pO2 69 L ABG HCO3 23 ABG O2 Saturation 94 ABG Base Excess -2 FiO2 21 Sodium 143 Potassium 3.4 Chloride 109 H Carbon Dioxide 22.7 Anion Gap 11 BUN 8 L Creatinine 0.7 Estim Creat Clear Calc 89.3 eGFR > 60 BUN/Creatinine Ratio 11 L Glucose [address] Glu mg/dL Hemoglobin A1c Calculated Osmolality 284 Calcium 9.4 Corrected Calcium 9.4 Phosphorus Magnesium 2.0 Total Bilirubin 0.9 AST 42 H ALT 22 Alkaline Phosphatase 77 Troponin I < 0.002 B-Natriuretic Peptide 78 Total Protein 7.3 Albumin 4.3 Globulin 3.0 Albumin/Globulin Ratio 1.4 Triglycerides Cholesterol LDL Cholesterol, Calc HDL Cholesterol Cholesterol/HDL Ratio TSH Ur Collection Type Clean Catch Urine Color Colorless A Urine Clarity Clear Urine pH 7.5 H Ur Specific [place] 1.029 Urine Protein Negative Urine Glucose (UA) Negative Urine Ketones Trace Urine Blood Negative Urine Nitrite Negative Urine Bilirubin Negative Urine Urobilinogen (Auto) Negative Ur Leukocyte Esterase Negative Urine RBC 1 Urine WBC 1 Ur Squamous Epith Cells 0 Urine Bacteria None Ur Culture Indicated? Not Indicated Urine Opiates Screen Negative Urine Fentanyl Screen Negative Ur Barbiturates Screen Negative U Amphetamin/Meth Scrn Negative U Benzodiazepines Scrn Negative U Cocaine Metab Screen Negative U Marijuana (THC) Screen Negative Ethyl Alcohol < 3.0 04/01/25 04/01/25 05:42 09:21 WBC 4.7 RBC 3.71 L Hgb 12.2 L Hct 35.7 L MCV 96 MCH 32.9 MCHC 34.2 RDW Std Deviation 44.3 H Plt Count 111 L Neut % (Auto) 64 Lymph % (Auto) 22 [place] % (Auto) 11 Eos % (Auto) 2 Baso % (Auto) 1 Neut # (Auto) 3.0 Lymph # (Auto) 1.0 [place] # (Auto) 0.5 Eos # (Auto) 0.1 Baso # (Auto) 0.0 Immature Gran # (Auto) 0.01 H Absolute Nucleated RBC 0.00 Immature Gran % 0 Nucleated RBC % 0 PT INR APTT Puncture Site ABG pH ABG pCO2 ABG pO2 ABG HCO3 ABG O2 Saturation ABG Base Excess FiO2 Sodium 143 Potassium 4.0 D Chloride 109 H Carbon Dioxide 23.2 Anion Gap 11 BUN 9 Creatinine 0.7 Estim Creat Clear Calc 86.7 eGFR > 60 BUN/Creatinine Ratio [address]ucose [address] Glu mg/dL 105 Hemoglobin A1c 5.3 Calculated Osmolality 284 Calcium 8.3 Corrected Calcium 8.7 Phosphorus 3.3 Magnesium 1.9 Total Bilirubin 0.6 AST 30 ALT 17 Alkaline Phosphatase 69 Troponin I < 0.020 B-Natriuretic Peptide Total Protein 5.8 Albumin 3.5 D Globulin 2.3 Albumin/Globulin Ratio 1.5 Triglycerides 111 Cholesterol 119 L LDL Cholesterol, Calc 68 HDL Cholesterol 29 L Cholesterol/HDL Ratio 4.1 TSH 2.79 Ur Collection Type Urine Color Urine Clarity Urine pH Ur Specific [place] Urine Protein Urine Glucose (UA) Urine Ketones Urine Blood Urine Nitrite Urine Bilirubin Urine Urobilinogen (Auto) Ur Leukocyte Esterase Urine RBC Urine WBC Ur Squamous Epith Cells Urine Bacteria Ur Culture Indicated? Urine Opiates Screen Urine Fentanyl Screen Ur Barbiturates Screen U Amphetamin/Meth Scrn U Benzodiazepines Scrn U Cocaine Metab Screen U Marijuana (THC) Screen Ethyl Alcohol ABG Interpretation ABG results: 03/31/25 23:47 ABG pH 7.36 ABG pCO2 42 ABG pO2 69 L ABG HCO3 23 ABG O2 Saturation 94 ABG Base Excess -2 Quality Measures Quality Measures VTE prophylaxis Advance care planning discussed with:: patient Assessment & Plan Assessment Current Active Medications: Generic Name Dose Route Start Last Admin Trade Name Freq PRN Reason Stop Dose Admin Acetaminophen 650 mg 03/31/25 22:00 04/01/25 04:48 Acetaminophen 325 Mg Tablet PO 04/30/25 21:59 650 mg Q6H PRN Administration Fever >100.4 or pain 1-3 Aspirin 81 mg 04/01/25 09:00 04/01/25 08:29 Aspirin Ec 81 Mg Tabec PO 05/01/25 08:59 81 mg QDAY ERNIE Administration Atorvastatin Calcium 40 mg 04/01/25 21:00 Atorvastatin Calcium 10 Mg Tablet PO 05/01/25 20:59 HS ERNIE Clopidogrel Bisulfate 75 mg 04/01/25 09:00 04/01/25 08:29 Clopidogrel Bisulfate 75 Mg Tablet PO 05/01/25 08:59 75 mg QDAY ERNIE Administration Diphenhydramine HCl 25 mg 04/01/25 00:47 Diphenhydramine Inj 50 Mg/Ml Vial IVP 05/01/25 00:46 X1 PRN hives/allergic rection Docusate Sodium 100 mg 04/01/25 09:00 04/01/25 08:29 Docusate Sod 100 Mg Capsule PO 05/01/25 08:59 100 mg QDAY ERNIE Administration Protocol Famotidine 20 mg 04/01/25 09:00 04/01/25 08:29 Famotidine Inj 10 Mg/Ml Vial 2 Ml IVP 05/01/25 08:59 20 mg Q12HR ERNIE Administration Sodium Chloride 1,000 mls @ 100 mls/hr 03/31/25 21:00 04/01/25 08:32 Ns IV 04/30/25 20:59 100 mls/hr Q10H ERNIE Administration Labetalol HCl 10 mg 03/31/25 20:58 Labetalol Inj 5 Mg/Ml Vial 20 Ml IVP Q15M PRN HYPER Labetalol HCl 10 mg 03/31/25 22:09 Labetalol Inj 5 Mg/Ml Vial 20 Ml IVP 04/30/25 22:08 Q4HR PRN SBP>220 Ondansetron HCl 4 mg 03/31/25 20:58 03/31/25 22:00 Ondansetron Inj 2 Mg/Ml Inj 2 Ml IVP 04/30/25 20:57 4 mg Q4HR PRN Administration NAUSEA OR VOMITING Plan 79-year-old male with HTN, shingles nerve pain, and chronic back pain, presenting with transient stroke-like symptoms, now stable with sinus bradycardia (HR 56), pending MRI brain and echocardiogram, cardiology consulted for bradycardia management. # Stroke-like symptoms #TIA concern Likely TIA given transient symptoms (dizziness, imbalance, brief visual changes), with significant bilateral carotid stenosis (R ICA 50?70%, L ICA 80%). Imaging so far negative for acute infarct. Plan: * Follow-up MRI brain w/o contrast today * Continue dual antiplatelet therapy (aspirin 81 mg + clopidogrel 75 mg daily) * Continue atorvastatin 40 mg nightly * Continue telemetry * Neuro checks q4h * Physical therapy and speech evaluation * Monitor for any new deficits and update neuro team as needed # Sinus bradycardia Asymptomatic, likely related to fatigue or vagal response. EKG shows sinus bradycardia without heart block. Plan: * Continue telemetry for monitoring * Reassess after echo and MRI results return * Cardiology consulted, awaiting recs. * Avoid beta-blockers or other jasvir agents * Repeat EKG if symptoms of bradycardia or hypotension recur # Hypertension Permissive HTN being maintained for stroke workup. BP target <220. Consider restarting home antihypertensive after medication reconciliation. Plan: * Continue permissive HTN * Labetalol 10 mg IVP Q4hr PRN for SBP >220 * Restart lisinopril after med rec # Chronic pain # Herpes zoster nerve pain # Prior spinal surgeries Patient?s back pain is managed with low-dose opioids at home, reports hives with Narco, managed with Benadryl. Plan: * Continue PRN meds for back pain * Acetaminophen for mild discomfort * Benadryl PRN for hives # Mild anemia Hgb dropped from 14 to 12.2, no active bleeding identified. Monitoring for any further drops. Plan: * Continue to monitor CBC * Reassess iron studies if necessary Health Maintenance: Code status: Full DVT prophylaxis: SCDs GI prophylaxis: Famotidine Diet: Regular Disposition: Telemetry for stroke rule-out, pending MRI brain and echo results. ----- Plan discussed with attending physician Dr. Kwok and senior resident Dr. Tigre Schroeder MD PGY-1 Internal Medicine Attending Provider Attestation/Addendum I have examined the patient, reviewed labs and imaging findings, discussed the case with the resident(s), and reviewed entered orders. I agree with the plan of care as outlined in this note, with these additional summaries/recommendations: Patient seen at bedside. Patient presented overnight as a stroke rule out. Presenting symptoms of lightheadedness/dizziness and loss of balance. Patient reports lightheadedness/dizziness has resolved and has not yet ambulated. Patient had rapid response this morning for bradycardia with heart rate down into 30s. Patient remained asymptomatic and denied lightheadedness and dizziness. Likely physiologic bradycardia versus less likely sinus node dysfunction/heart block/medication induced. Patient does take pregabalin which is rarely associated with bradycardia. We will consult cardiology, recommendations appreciated. Patient is undergoing CVA rule out. Stroke alert was called on admission. CT head was negative for acute hemorrhage, mass effect or midline shift. CTA head and neck did reveal 50 to 70% stenosis right carotid and 80% stenosis left carotid which is likely not the etiology for patient's symptoms. Pending MRI brain to rule out CVA. Pending physical therapy and echocardiogram with bubble study. Continue DAPT for now. Consult in-house neurology, recommendations appreciated. Allow permissive hypertension. Passed swallow evaluation and started on diet. Continue to control vascular risk factors. LDL is currently at goal 68. Continue high intensity statin for now. Patient updated on the plan and agreement. All questions answered satisfaction. Please see residents note for additional details and management. Dr. Rissa MD
--- NOTE | 2025-04-01 13:56 | PC.SS ---
Main Love is a 79 year-old male admitted to [facility] for Stroke. SS conducted bedside contact with the patient to complete initial assessment and to discuss discharge planning. Role and reason explained. Patient confirmed demographic information. Patient identifies his Bing Love [phone] as his surrogate decision maker. Pt states he is able to complete all ADL?s independent. Pt does not possesses any DME. Pts PCP is Shameka (last visit 2 months ago, next apt 04/21/25). Pharmacy of choice is [facility]. Discharge options discussed and the pt wishes to return home.? Pt will provide transport. No further intervention required at this time, social insurance administrator would be available to address any further concerns. DC Plan: Home Contact: Bing Address: Confirmed on face sheet PCP: Shameka
--- NOTE | 2025-04-01 14:33 | PC.SS ---
Rounding: Stroke work up, DC plan home
--- NOTE | 2025-04-01 16:38 | EVENTNT_ITS ---
Documentation for date of: 04/01/25 Event Note Event Note: A rapid response was called for the patient due to a heart rate of 38 bpm as noted by the nursing staff. Upon assessment, the patient's HR was found to be in the 50s on pulse oximeter, with a manual HR recorded at 56 bpm. The patient was alert and oriented, denied any chest pain, dizziness, syncope, or other concerning symptoms. The patient reported feeling generally well, though a bit more tired than usual. Interventions: * EKG was performed and showed sinus bradycardia without any heart block. * Troponin ordered negative. * Vitals were monitored closely, and the HR remained stable in the 50s-60s range following initial findings. * The patient was reassured, and no immediate intervention was required for bradycardia at this time. Plan: * Continue telemetry for monitoring. * Repeat EKG if symptoms of bradycardia or hypotension recur. * Reassess after MRI and echocardiogram results return. * Follow cardiology recommendations for monitoring and management. * Cardiology will follow up with further assessment based on echo and telemetry findings. * No changes to current medications unless clinical symptoms dictate otherwise. ----- Plan discussed with attending physician Dr. Rissa Schroeder MD PGY-1 Internal Medicine
--- NOTE | 2025-04-01 16:38 | PD.RESEVENT ---
Documentation for date of: 04/01/25 Event Note Event Note: A rapid response was called for the patient due to a heart rate of 38 bpm as noted by the nursing staff. Upon assessment, the patient's HR was found to be in the 50s on pulse oximeter, with a manual HR recorded at 56 bpm. The patient was alert and oriented, denied any chest pain, dizziness, syncope, or other concerning symptoms. The patient reported feeling generally well, though a bit more tired than usual. Interventions: EKG was performed and showed sinus bradycardia without any heart block. Troponin ordered negative. Vitals were monitored closely, and the HR remained stable in the 50s-60s range following initial findings. The patient was reassured, and no immediate intervention was required for bradycardia at this time. Plan: Continue telemetry for monitoring. Repeat EKG if symptoms of bradycardia or hypotension recur. Reassess after MRI and echocardiogram results return. Follow cardiology recommendations for monitoring and management. Cardiology will follow up with further assessment based on echo and telemetry findings. No changes to current medications unless clinical symptoms dictate otherwise. ----- Plan discussed with attending physician Dr. Rissa Schroeder MD PGY-1 Internal Medicine
--- NOTE | 2025-04-01 18:13 | ESCONSULT_ITS ---
HPI Data of Consult Requesting Physician: Enid Amin MD Admitting Provider: Enid Amin MD Attending Provider: Enid Amin MD Primary Care Provider: Andre Myles Consult Narrative Reason for consult: Bradycardia in 40s History of present illness: Main is a 79-year-old male with past medical history of postherpetic neuralgia, chronic low back pain, hypertension presented to the ED with complaints of lightheadedness, dizziness, imbalance in walking started 7 PM on 03/31 night. He says he went to the bathroom and after that he felt dizzy, lightheaded, nauseous with room spinning sensation starting at 7 PM which lasted until today morning. He also endorses headache during the episode but denies any chest pain, shortness of breath, palpitations. During this episode he also had imbalance for which he used his hands to support himself walking in the [place]ji. He denies any slurring of speech, weakness in arms or legs, tingling sensations. He is having these episodes of dizziness, lightheadedness and sometimes associated with ringing ,pounding sensation in the ear, room spinning sensation going on for 2 to 3 months which occurs approximately once a week and last for 1 hr which are alleviated with extra Tylenol that he uses for it. He denies any dizziness when he gets up from the bed, dizziness with changing in the posterior or head movement. He actively works at home and his who is present at the bedside states that he felt weak and fatigued from the work that he has been doing during this week. In the ED vitals are 130/81, pulse 63, respiratory 18, temperature 97.9 saturating on room air. Hemoglobin is 14, platelets 137, TSH 2.79, triglycerides 111, cholesterol 119, LDL 68, HDL 29, BUN 9, creatinine 0.7 CT head is negative for any hemorrhage, mass or any midline shift. CT neck shows 50 to 70% stenosis on right carotid bifurcation and right internal carotid, 80% stenosis on the left carotid bifurcation and left internal carotid. MRI head negative for any hemorrhage or ischemia Echo showing normal ejection fraction 45 to 50%, indeterminate diastolic function, mild AV sclerosis, moderate mitral annular calcification, trace MR, trace TR. Urine drug screen, urinalysis negative for any infection. Teleneurologist recommended thrombolytics but the patient refused. Past medical history: History of remote gout and used allopurinol long time ago, postherpetic neuralgia shingles treated in 2023, and currently being treated for another episode of shingles starting October 2024 with pregabalin. He only takes lisinopril 5 mg once a day which was started by Dr. Myles for his high blood pressure 2 years back Past surgical history: Lower back surgery in 2004, hip replacement in 2007 and 2008, shoulder surgery in 2009 and 2011, hand surgery, hammertoe surgery 2 years back Social history: Denies alcohol, smoking, or any other drug usage. 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 Lives with his here in [place]. Allergic history: NKDA Family history: History of stroke, quadruple bypass in his father at the age of 84 and brain aneurysm on her maternal side on his maternal side cc:: cc: Enid Amin MD Exam Vital Signs Temp Pulse Resp BP Pulse Ox O2 Del Method O2 Flow Rate 97.4 F 35 L 17 125/64 96 Room Air 2 04/01/25 16:00 04/01/25 16:00 04/01/25 16:00 04/01/25 16:00 04/01/25 16:00 04/01/25 16:00 04/01/25 15:38 Narrative Exam GENERAL: NAD, AAOx3 HEENT: Moist mucosa. Eyes open, symmetrical, & clear CARDIO: Slow regular rhythm Noted. No Murmurs. PULM: No noted coughing/dyspnea CTA B/L, no R/W/R GI: Abdomen soft, nondistended, non Tender SKIN/MSK/EXT: No wounds/rashes/amputations, no pain on palpation.No Edema. Pedal pulses present B/L NEURO: AAOx3, no focal neuro deficits, able to move all 4 extremities Results Labs 04/02/25 05:44 04/02/25 05:44 Labs: Short CBC 03/31/25 04/01/25 Range/Units 20:58 05:42 WBC 6.7 4.7 (3.8-10.6) Thou/mm3 Hgb 14.0 12.2 L (13.5-16.0) g/dL Hct 40.1 L 35.7 L (41.0-53.0) % Plt Count 137 L 111 L (140-440) Thou/mm3 BMP 03/31/25 04/01/25 20:58 05:42 Sodium 143 143 Potassium 3.4 4.0 D Chloride 109 H 109 H Carbon Dioxide 22.7 23.2 BUN 8 L 9 Creatinine 0.7 0.7 Glucose 124 H 118 H Calcium 9.4 8.3 Cardiac Enzymes 03/31/25 04/01/25 Range/Units 20:58 09:21 Troponin I < 0.002 < 0.020 (0.0-0.045) ng/mL Liver Function 03/31/25 04/01/25 Range/Units 20:58 05:42 Total Bilirubin 0.9 0.6 (0.3-1.2) mg/dL AST 42 H 30 (0-34) U/L ALT 22 17 (10-49) U/L Alkaline Phosphatase 77 69 (46-116) U/L Albumin 4.3 3.5 D (3.4-4.8) gm/dL Urine 03/31/25 Range/Units 22:07 Urine Color Colorless A (Lt Yel-Yel) Urine Clarity Clear (Clear/Hazy) Urine pH 7.5 H (5.0-7.0) Ur Specific [place] 1.029 (1.001-1.035) Urine Protein Negative (Neg - Trace) Urine Glucose (UA) Negative (Negative) ABG Interpretation ABG results: 03/31/25 23:47 ABG pH 7.36 ABG pCO2 42 ABG pO2 69 L ABG HCO3 23 ABG O2 Saturation 94 ABG Base Excess -2 Quality Measures Quality Measures VTE prophylaxis Advance care planning discussed with:: patient Medications Home Medications and Allergies Home Medications ?Medication ?Instructions ?Recorded ?Confirmed ?Type acetaminophen 500 mg tablet 500 mg PO Q6H PRN Pain 04/01/25 History amlodipine 5 mg tablet 5 mg PO QDAY 04/01/25 History hydrocodone 5 mg-acetaminophen 325 1 tab PO Q12H PRN p ain 04/01/25 04/01/25 History mg tablet pregabalin 300 mg capsule 300 mg PO BID 04/01/2504/01 History Allergies Allergy/AdvReac Type Severity Reaction Status Date / Time No Known Allergies Allergy Verified 01/18/25 00:34 Visit Medications Acetaminophen (Acetaminophen 325 Mg Tablet) 650 mg PO Q6H PRN PRN Reason: Fever >100.4 or pain 1-3 Stop: 04/30/25 21:59 Last Admin: 04/01/25 04:48 Dose: 650 mg Aspirin (Aspirin Ec 81 Mg Tabec) 81 mg PO QDAY [facility] Stop: 05/01/25 08:59 Last Admin: 04/01/25 08:29 Dose: 81 mg Atorvastatin Calcium (Atorvastatin Calcium 10 Mg Tablet) 40 mg PO HS [facility] Stop: 05/01/25 20:59 Clopidogrel Bisulfate (Clopidogrel Bisulfate 75 Mg Tablet) 75 mg PO QDAY [facility] Stop: 05/01/25 08:59 Last Admin: 04/01/25 08:29 Dose: 75 mg Diphenhydramine HCl (Diphenhydramine Inj 50 Mg/Ml Vial) 25 mg IVP X1 PRN PRN Reason: hives/allergic rection Stop: 05/01/25 00:46 Docusate Sodium (Docusate Sod 100 Mg Capsule) 100 mg PO QDAY [facility]; Protocol Stop: 05/01/25 08:59 Last Admin: 04/01/25 08:29 Dose: 100 mg Famotidine (Famotidine Inj 10 Mg/Ml Vial 2 Ml) 20 mg IVP Q12HR [facility] Stop: 05/01/25 08:59 Last Admin: 04/01/25 08:29 Dose: 20 mg Sodium Chloride (Ns) 1,000 mls @ 100 mls/hr IV Q10H [facility] Stop: 04/30/25 20:59 Last Admin: 04/01/25 18:02 Dose: 100 mls/hr Labetalol HCl (Labetalol Inj 5 Mg/Ml Vial 20 Ml) 10 mg IVP Q15M PRN PRN Reason: HYPER Labetalol HCl (Labetalol Inj 5 Mg/Ml Vial 20 Ml) 10 mg IVP Q4HR PRN PRN Reason: SBP>220 Stop: 04/30/25 22:08 Ondansetron HCl (Ondansetron Inj 2 Mg/Ml Inj 2 Ml) 4 mg IVP Q4HR PRN PRN Reason: NAUSEA OR VOMITING Stop: 04/30/25 20:57 Last Admin: 03/31/25 22:00 Dose: 4 mg Discontinued Medications Aspirin (Aspirin Ec 81 Mg Tabec) 81 mg PO X1 ONE Stop: 03/31/25 21:45 Last Admin: 03/31/25 21:59 Dose: 81 mg Clonidine (Clonidine Hcl 0.1 Mg Tablet) 0.3 mg PO X1 ONE Stop: 03/31/25 21:44 Last Admin: 03/31/25 21:59 Dose: 0.3 mg Clopidogrel Bisulfate (Clopidogrel Bisulfate 75 Mg Tablet) 300 mg PO X1 ONE Stop: 03/31/25 21:45 Last Admin: 03/31/25 22:00 Dose: 300 mg Hydromorphone HCl (Hydromorphone Hcl 2 Mg Tablet) 2 mg PO Q4HR PRN PRN Reason: Pain 5-10 Stop: 04/06/25 00:43 Meclizine HCl (Meclizine Hcl 25 Mg Tablet) 25 mg PO X1 ONE Stop: 03/31/25 22:08 Last Admin: 03/31/25 22:42 Dose: 25 mg Morphine Sulfate (Morphine Sulf Inj 4 Mg/Ml Vial) 6 mg IV X1 ONE Stop: 03/31/25 21:44 Last Admin: 03/31/25 22:00 Dose: 6 mg Nicotine (Nicotine Patch 7 Mg/24 Hr Patch.Td24) 7 mg TOP QDAY ERNIE Stop: 05/01/25 08:59 Potassium Chloride (Potassium Chloride 20 Meq Tabcr) 40 meq PO X1 ONE Stop: 03/31/25 22:54 Last Admin: 03/31/25 23:30 Dose: 40 meq Scopolamine (Scopolamine 1 Mg Tdsy) 1 mg TOP X1 ONE Stop: 03/31/25 22:08 Last Admin: 03/31/25 22:42 Dose: 1 mg Assessment & Plan Plan Main is a 79-year-old male with past medical history of postherpetic neuralgia, hypertension presented to the ED with complaints of lightheadedness, dizziness, imbalance in walking started 7 PM on 03/31 night. He says he went to the bathroom and after that he felt dizzy, lightheaded, nauseous with room spinning sensation starting at 7 PM which lasted until today morning. He was admitted for stroke like symptoms. Cardiology was consulted for his bradycardia in 40s. # Sinus bradycardia Heart rate is around 44 , BP 125/64.Echo showing normal ejection fraction 45 to 50%, indeterminate diastolic function, mild AV sclerosis with no stenosis, moderate mitral annular calcification, trace MR, trace TR,no Intracardiac shunts. Patient denies any chest pain, palpitations, shortness of breath, dizziness right now, any syncopal episode but endorses diziness sometimes when he wakes from the bed EKG showing sinus bradycardia. Not on any beta-florencio or any heart rate lowering drugs. He was started on scopolamine and meclizine. ?On exercise flexion and extension with his Hand and while walking around in the room , His HR is going up and crossing 50s.He is having positive chronotropic response. So currently doesnot need pacemkaker -CT neck shows 50 to 70% stenosis on right carotid bifurcation and right internal carotid, 80% stenosis on the left carotid bifurcation and left internal carotid. -Reccomended Carotid Duplex to see velocity and sometimes CT neck overstates occlusion. -Orthostatic vitals to see if he have any postural Hypotension #TIA Follow neurology recommendations and manage as per primary team # Hypertension Currently blood pressure is soft. -Recommended not start any beta blockers on him given that his HR is low. Discussed this case with Dr. Asha Colmenares MD PGY1 Attending Provider Attestation/Addendum I have personally seen and examined the patient separately on the above date of service and discussed the plan of care with the resident. I reviewed the resident Dr. Keith Colmenares consultation progress note and agree with the resident findings and plan in the note above and have also edited the documentation to reflect my findings and plan. 79-year-old male with a past medical history of obesity, essential hypertension, chronic low back pain status post back surgery in 2004 status post work injury, diverticulosis, osteoarthritis with bilateral hip replacement as well as shoulder surgery arm surgery, recent diagnosis of shingles with postherpetic neuralgia presented to the emergency department for further evaluation of lightheadedness and dizziness along with imbalance while walking. Patient apparently has been in good state of health until couple of months ago when he started experiencing episodes of dizziness lightheadedness along with ringing sensation of the ear as well as room sensing sensation which is infrequent initially but yesterday he had these episodes lasting for more than half hour along with imbalance with walking which did not made him come to the emergency department. Patient was also recently diagnosed with shingles and was treated by his primary care for the same and has some post aortic neuralgia. His labs and vitals in the emergency department appear to be stable he was admitted for further evaluation of possible stroke or TIA. MRI brain was negative for any acute pathology. CTA head and neck showed 50 to 70% stenosis of the right carotid bifurcation Clinical artery 90% stenosis of the left carotid bifurcation and left internal carotid. Posterior circulation appear intact. Echo was also performed which showed mildly reduced LV function with an EF of 40 to 45%, indeterminate diastolic function, normal RV function. Mildly enlarged RV, RVSP 30 mmHg. Moderate aortic valve sclerosis without stenosis. Moderate MAC, mild TR and MR. Bubble study negative. EKG and telemetry showed bradycardia and cardiology consulted for further evaluation. 1. TIA-rule out CVA-presented with lightheadedness, dizziness and imbalance while walking along with ringing sensation in his ears. 2. Bradycardia-sinus bradycardia 3. New onset mild systolic congestive heart failure 4. Essential hypertension 5. Bilateral carotid artery stenosis-check carotid duplex 6. Coronary artery calcification noted on the CT chest in January 2025 7. Morbid obesity 8. Chronic back pain status post work injury and multiple surgeries 9. History of single status post aortic valve 10. Osteoarthritis status post bilateral hip replacement, Patient presentation concerning for TIA or CVA and neurology following. MRI of the brain was negative for any infarct or hemorrhage. CTA head and neck did not show 70 to 80% stenosis of the right internal carotid artery bifurcation along with the right internal carotid artery as well as 80% stenosis of the left internal carotid artery bifurcation. Bubble study was negative for any PFO or ASD on echo. Overall appears to be posterior circulation TIA but will need to rule out other causes including middle ear pathology given his ringing sensation in his ears. Will need ENT consultation. Recommend to check orthostatics as they have not been performed since admission. Also recommend to check bilateral carotid artery duplex to evaluate the carotid artery stenosis as CT can overestimate the carotid artery stenosis secondary to blooming artifact. Started on aspirin as well as statin and neurology following. Bradycardia-patient sinus bradycardia with a heart rate out on 40 to 50 bpm when he sleeps patient is apparently a has a heart rate in the 30s. On passive exercise patient heart rate has increased to the 50s even when he stands up indicating good chronotropic response. No indication for pacemaker at the present point of time. Avoid beta-blockers calcium channel blockers and other rate control medications including Aricept. Previous EKGs reviewed and patient always has been normal sinus rhythm and unclear etiology at the present moment. Continue telemetry and keep potassium greater than 4 and magnesium greater than 2.0 at all times. New onset mild systolic CHF: Echo from 03/31/2025 showed mildly reduced LV function with an EF of 40 to 45%, indeterminate diastolic function, normal RV function. Mildly enlarged RV, RVSP 30 mmHg. Moderate aortic valve sclerosis without stenosis. Moderate MAC, mild TR and MR. Bubble study negative. Does not appear to be fluid overloaded. BNP 79. No clear etiology at the present moment and patient will need further evaluation including ruling ischemic as well as nonischemic etiologies for the CHF we will continue further workup as outpatient as patient denies any cardiac symptoms at the present moment. Will need goal-directed medical therapy but cannot give beta-florencio because of bradycardia and recommend to start Entresto after stopping the lisinopril for 36 hours. Strict troponin elevation 2 g sodium diet. Coronary artery calcification noted on LAD LCx as well as RCA on the recent chest CTA done in January 2025 patient does have risk factors for CAD and will continue rest of the workup as outpatient as patient does not have any chest pain or chest pressure at the present point of time Francis Barry M.D. Interventional Cardiology
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
[2025-04-01] MEDS: ATORVASTATIN CALCIUM 10 MG TABLET 40 MG PO (20:56)
[2025-04-02] VITALS (9 sets, daily range): BP systolic 111–153; BP diastolic 54–77; PULSE 40–59; RESP 18–97; TEMP 36.1–36.8; O2SAT 94–97; BMI 38.0
[2025-04-02 06:21] LABS: Basophils # (Auto) 0.0 Thou/mm3 (0.0-0.2); Basophils % (Auto) 1 % (0-2.5); Eosinophils # (Auto) 0.2 Thou/mm3 (0.0-0.5); Eosinophils % (Auto) 4 % (0-10); Hematocrit 37.0 % (41.0-53.0); Hemoglobin 12.5 g/dL (13.5-16.0); Immature Granulocytes Auto 0.00 Thou/mm3 (0.00-0.00); Lymphocytes # (Auto) 1.3 Thou/mm3 (1.0-4.8); Lymphocytes % (Auto) 34 % (10-50); Mean Corpuscular HGB Conc 33.8 g/dl (31.0-37.0); Mean Corpuscular Hemoglobin 33.2 pg (25.0-35.0); Mean Corpuscular Volume 98 fL (80-100); Monocytes # (Auto) 0.3 Thou/mm3 (0.0-0.8); Monocytes % (Auto) 9 % (0-12); Neutrophils # (Auto) 2.0 Thou/mm3 (1.8-7.7); Neutrophils % (Auto) 52 % (37-80); Nucleated Red Blood Cell # 0.00 Thou/mm3 (0.00-0.00); Nucleated Red Blood Cell % 0 /100 WBC (0); Platelet Count 84 Thou/mm3 (140-440); RDW Standard Deviation 46.5 fL (35.1-43.9); Red Blood Count 3.77 Miln/mm3 (4.50-5.90); White Blood Count 3.7 Thou/mm3 (3.8-10.6)
[2025-04-02 07:00] LABS: Alanine Aminotransferase 18 U/L (10-49); Albumin, Serum 3.5 gm/dL (3.4-4.8); Albumin/Globulin Ratio 1.6 (1.2-2.2); Alkaline Phosphatase 63 U/L (46-116); Anion Gap 9 (7-16); Aspartate Amino Transferase 34 U/L (0-34); BUN/Creatinine Ratio 13 Ratio (12-20); Bilirubin,Total 0.5 mg/dL (0.3-1.2); Blood Urea Nitrogen 10 mg/dL (9-23); Calcium 8.2 mg/dL (8.3-10.6); Calcium (Corrected) 8.6 mg/dL (8.5-10.1); Carbon Dioxide 23.5 mMol/L (20.0-31.0); Chloride 112 mMol/L (98-107); Creatinine (Component) 0.8 mg/dL (0.6-1.3); Estimated Creatinine Clearance 78.7 mL/min (>60); Globulin 2.2 gm/dL (2.3-3.5); Glucose 88 mg/dL (74-106); Magnesium 1.8 mg/dL (1.6-2.6); Osmolality,Calculated 284 (275-295); Phosphorous 3.0 mg/dL (2.4-5.1); Potassium 4.3 mMol/L (3.4-5.1); Sodium 144 mMol/L (136-145); Total Protein 5.7 gm/dL (5.7-8.2); eGFR > 60 See Note
[2025-04-02] MEDS: ASPIRIN EC 81 MG TABEC PO (08:21)
[2025-04-02] MEDS: DOCUSATE SOD 100 MG CAPSULE PO (08:21)
[2025-04-02] MEDS: FAMOTIDINE INJ 10 MG/ML VIAL 2 ML 20 MG IVP ×2 (08:22→21:16)
[2025-04-02] MEDS: ACETAMINOPHEN 325 MG TABLET 650 MG PO (08:22)
--- NOTE | 2025-04-02 09:57 | PD.RESDS ---
Planned Discharge Date 04/02/25 DS: Providers Provider Date of admission: 03/31/25 22:07 Primary care physician: Andre Myles Admitting Provider: Enid Amin MD Attending Provider on Admission: Enid Amin MD Consults: 03/31/25 20:58 Consult to Neurology / Tele-Neurology Routine Comment: Consulting Provider: [facility] 03/31/25 22:08 Referral Physical Therapy Routine Comment: Physician Instructions: 03/31/25 22:38 Consult to Neurology / Tele-Neurology Routine Comment: Consulting Provider: Jet Cunningham 04/01/25 14:35 Consult to Cardiology Routine Comment: Bradycardia Consulting Provider: Francis Barry Attending Provider on DC: Britton Kwok MD Discharging Provider: Rocio Schroeder MD Hospital Course Hospital Course Hospital course: Mr. Main Love is a 79-year-old male with a history of hypertension, herpes zoster neuralgia, and chronic post-surgical back pain who presented with sudden-onset dizziness, lightheadedness, imbalance, and generalized weakness beginning around 7 PM on 03/31. A stroke alert was activated in the ED. CT head showed no hemorrhage, and CTA neck revealed right ICA 50?70% stenosis and left ICA 80% stenosis, but no large vessel occlusion. Tele-neurology evaluated him and recommended thrombolytics (TNK); however, the patient and family declined after risks and benefits were discussed. MRI brain (04/01) was negative for acute infarct, showing only moderate chronic microvascular changes. An echocardiogram showed LVEF 45?50%, mildly enlarged RV, mild aortic valve sclerosis, and no intra-cardiac shunt. During hospitalization, the patient was noted to have sinus bradycardia (HR 30s?50s). Cardiology was consulted. EKG confirmed sinus bradycardia without heart block, and the patient demonstrated a positive chronotropic response with activity. No pacemaker was recommended. Orthostatics were checked and were not consistent with orthostatic hypotension. His dizziness progressively improved, and by discharge he was ambulating independently with physical therapy and had no residual neurological deficits. Neurology concluded that his presentation was most consistent with a TIA. Due to thrombocytopenia (platelets downtrending to 84), neurology recommended aspirin only (no DAPT). 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 A carotid duplex was ordered to further clarify the degree of stenosis, but CTA stenosis may be overestimated. Outpatient vascular evaluation will be needed depending on duplex results. He remained hemodynamically stable and symptom-free, passed his swallow screen, and was deemed medically safe for discharge with close outpatient follow-up. 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 Rissa Schroeder MD PGY-1 Internal Medicine Time Spent with Patient Time attestation: Total time spent providing and/or coordinating discharge services: Exam Vital Signs Temp Pulse Resp BP Pulse Ox O2 Del Method O2 Flow Rate 97.2 F 50 L 18 142/77 H 94 L Oxy Mask 5 04/02/25 08:00 04/02/25 08:00 04/02/25 08:00 04/02/25 08:00 04/02/25 08:00 04/02/25 08:00 04/02/25 08:00 Narrative Exam General: AOx4, NAD, well-nourished, no cyanosis, pallor, or diaphoresis HEENT: Normocephalic, atraumatic, no facial asymmetry, PERRLA, EOMI Cardiac: Regular rate and rhythm, no murmurs, rubs, or gallops. Respiratory: Clear to auscultation, normal effort, no accessory muscle use Abdomen: Soft, non-tender, normal bowel sounds Neuro: NIHSS 0. No motor deficits, CN II-XII intact, no ataxia, no sensory loss, normal coordination and speech Extremities: No edema or abnormal range of motion Discharge Plan Plan Patient Disposition: HOME (Self Care) Patient condition on transfer: Stable Care Plan Goals: -Follow-up with PCP within 1 week of discharge. If you do not have appointment, [facility]. Call [phone] to make an appointment. -Recommended to take Aspirin 81mg once daily, Atorvastatin 40mg during night time -Recommended to take Meclizine as needed for dizziness or vertigo -Continue rest of the home medications -Recommended to follow up with PCP for adjustment of pregabalin dose -Return to ED if symptoms persist or return Prescriptions/Referrals Prescriptions/Med Rec: New aspirin 81 mg capsule 81 mg PO QDAY Qty: 30 2RF atorvastatin [Lipitor] 40 mg tablet 40 mg PO HS Qty: 30 1RF meclizine 25 mg tablet 25 mg PO QDAY PRN (Reason: dizziness or vertigo) Qty: 30 1RF Continued acetaminophen 500 mg Tablet 500 mg PO Q6H PRN (Reason: Pain) pregabalin 300 mg capsule 300 mg PO BID Patient Comments: TAKE 1 CAPSULE BY MOUTH TWICE A DAY hydrocodone-acetaminophen 5-325 mg tablet 1 tab PO Q12H PRN (Reason: pain) Patient Comments: TAKE 1 TABLET BY MOUTH TWICE A DAY NEEDED FOR PAIN amlodipine 5 mg tablet 5 mg PO QDAY Patient Comments: TAKE 1 TABLET BY MOUTH EVERY DAY Referrals: Fracnis Barry MD [Physician, Cardiology] Andre Myles [Primary Care Provider] Patient/Caregiver Discharge Instructions Discharge Activity: activity as tolerated Education Materials: Blockage Carotid Artery, Carotid Artery Problems: Stroke, Dizziness Balance Probs Fainting, Vertigo Medicine Tx, Vertigo Staying Safe, ED Dizziness, Uncertain Cause, ED TIA: Transient Ischemic Attack Print Language: Mongolian Stand Alone Forms: [facility] Award Info., Patient Portal Info Letter Discharge Order Discharge Orders: Discharge (Routine); Ordered 04/03/25 Ordered By: Gonzalo Landeros
--- NOTE | 2025-04-02 11:36 | PD.RESCONSUL ---
HPI Data of Consult Requesting Physician: Enid Amin MD Admitting Provider: Enid Amin MD Attending Provider: Enid Amin MD Primary Care Provider: Andre Myles Consult Narrative cc:: cc: Enid Amin MD Exam Vital Signs Temp Pulse Resp BP Pulse Ox O2 Del Method O2 Flow Rate 97.2 F 50 L 18 142/77 H 94 L Oxy Mask 5 04/02/25 08:00 04/02/25 08:00 04/02/25 08:00 04/02/25 08:00 04/02/25 08:00 04/02/25 08:00 04/02/25 08:00 Results Labs 04/02/25 05:44 04/02/25 05:44 Labs: Short CBC 04/02/25 Range/Units 05:44 WBC 3.7 L (3.8-10.6) Thou/mm3 Hgb 12.5 L (13.5-16.0) g/dL Hct 37.0 L (41.0-53.0) % Plt Count 84 L D (140-440) Thou/mm3 BMP 04/02/25 05:44 Sodium 144 Potassium 4.3 Chloride 112 H Carbon Dioxide 23.5 BUN 10 Creatinine 0.8 Glucose 88 Calcium 8.2 L Liver Function 04/02/25 Range/Units 05:44 Total Bilirubin 0.5 (0.3-1.2) mg/dL AST 34 (0-34) U/L ALT 18 (10-49) U/L Alkaline Phosphatase 63 (46-116) U/L Albumin 3.5 (3.4-4.8) gm/dL ABG Interpretation ABG results: 03/31/25 23:47 ABG pH 7.36 ABG pCO2 42 ABG pO2 69 L ABG HCO3 23 ABG O2 Saturation 94 ABG Base Excess -2 Quality Measures Quality Measures VTE prophylaxis Medications Home Medications and Allergies Home Medications ?Medication ?Instructions ?Recorded ?Confirmed ?Type acetaminophen 500 mg tablet 500 mg PO Q6H PRN Pain 03/06/21 04/01/25 History amlodipine 5 mg tablet 5 mg PO QDAY 04/01/25 04/01/25 History hydrocodone 5 mg-acetaminophen 325 1 tab PO Q12H PRN pain 04/01/25 04/01/25 History mg tablet pregabalin 300 mg capsule 300 mg PO BID 04/01/25 04/01/25 History Allergies Allergy/AdvReac Type Severity Reaction Status Date / Time No Known Allergies Allergy Verified 01/18/25 00:34 Visit Medications Acetaminophen (Acetaminophen 325 Mg Tablet) 650 mg PO Q6H PRN PRN Reason: Fever >100.4 or pain 1-3 Stop: 04/30/25 21:59 Last Admin: 04/02/25 08:22 Dose: 650 mg Aspirin (Aspirin Ec 81 Mg Tabec) 81 mg PO QDAY [facility] Stop: 05/01/25 08:59 Last Admin: 04/02/25 08:21 Dose: 81 mg Atorvastatin Calcium (Atorvastatin Calcium 10 Mg Tablet) 40 mg PO HS [facility] Stop: 05/01/25 20:59 Last Admin: 04/01/25 20:56 Dose: 40 mg Diphenhydramine HCl (Diphenhydramine Inj 50 Mg/Ml Vial) 25 mg IVP X1 PRN PRN Reason: hives/allergic rection Stop: 05/01/25 00:46 Docusate Sodium (Docusate Sod 100 Mg Capsule) 100 mg PO QDAY [facility]; Protocol Stop: 05/01/25 08:59 Last Admin: 04/02/25 08:21 Dose: 100 mg Famotidine (Famotidine Inj 10 Mg/Ml Vial 2 Ml) 20 mg IVP Q12HR ERNIE Stop: 05/01/25 08:59 Last Admin: 04/02/25 08:22 Dose: 20 mg Labetalol HCl (Labetalol Inj 5 Mg/Ml Vial 20 Ml) 10 mg IVP Q15M PRN PRN Reason: HYPER Labetalol HCl (Labetalol Inj 5 Mg/Ml Vial 20 Ml) 10 mg IVP Q4HR PRN PRN Reason: SBP>220 Stop: 04/30/25 22:08 Ondansetron HCl (Ondansetron Inj 2 Mg/Ml Inj 2 Ml) 4 mg IVP Q4HR PRN PRN Reason: NAUSEA OR VOMITING Stop: 04/30/25 20:57 Last Admin: 03/31/25 22:00 Dose: 4 mg Discontinued Medications Aspirin (Aspirin Ec 81 Mg Tabec) 81 mg PO X1 ONE Stop: 03/31/25 21:45 Last Admin: 03/31/25 21:59 Dose: 81 mg Clonidine (Clonidine Hcl 0.1 Mg Tablet) 0.3 mg PO X1 ONE Stop: 03/31/25 21:44 Last Admin: 03/31/25 21:59 Dose: 0.3 mg Clopidogrel Bisulfate (Clopidogrel Bisulfate 75 Mg Tablet) 300 mg PO X1 ONE Stop: 03/31/25 21:45 Last Admin: 03/31/25 22:00 Dose: 300 mg Clopidogrel Bisulfate (Clopidogrel Bisulfate 75 Mg Tablet) 75 mg PO QDAY [facility] Stop: 05/01/25 08:59 Last Admin: 04/01/25 08:29 Dose: 75 mg Hydromorphone HCl (Hydromorphone Hcl 2 Mg Tablet) 2 mg PO Q4HR PRN PRN Reason: Pain 5-10 Stop: 04/06/25 00:43 Sodium Chloride (Ns) 1,000 mls @ 100 mls/hr IV Q10H [facility] Stop: 04/30/25 20:59 Last Admin: 04/02/25 07:16 Dose: Not Given Meclizine HCl (Meclizine Hcl 25 Mg Tablet) 25 mg PO X1 ONE Stop: 03/31/25 22:08 Last Admin: 03/31/25 22:42 Dose: 25 mg Morphine Sulfate (Morphine Sulf Inj 4 Mg/Ml Vial) 6 mg IV X1 ONE Stop: 03/31/25 21:44 Last Admin: 03/31/25 22:00 Dose: 6 mg Nicotine (Nicotine Patch 7 Mg/24 Hr Patch.Td24) 7 mg TOP QDAY [facility] Stop: 05/01/25 08:59 Potassium Chloride (Potassium Chloride 20 Meq Tabcr) 40 meq PO X1 ONE Stop: 03/31/25 22:54 Last Admin: 03/31/25 23:30 Dose: 40 meq Scopolamine (Scopolamine 1 Mg Tdsy) 1 mg TOP X1 ONE Stop: 03/31/25 22:08 Last Admin: 03/31/25 22:42 Dose: 1 mg
--- NOTE | 2025-04-02 11:45 | PD.RESPRO ---
Documentation for date of: 04/02/25 Subjective Subjective Interval history: Main is a 79-year-old male with past medical history of postherpetic neuralgia, chronic low back pain, hypertension presented to the ED with complaints of lightheadedness, dizziness, imbalance in walking started 7 PM on 03/31 night. He says he went to the bathroom and after that he felt dizzy, lightheaded, nauseous with room spinning sensation starting at 7 PM which lasted until today morning. He also endorses headache during the episode but denies any chest pain, shortness of breath, palpitations. During this episode he also had imbalance for which he used his hands to support himself walking in the [place]. He denies any slurring of speech, weakness in arms or legs, tingling sensations. He is having these episodes of dizziness, lightheadedness and sometimes associated with ringing ,pounding sensation in the ear, room spinning sensation going on for 2 to 3 months which occurs approximately once a week and last for 1 hr which are alleviated with extra Tylenol that he uses for it. He denies any dizziness when he gets up from the bed, dizziness with changing in the posterior or head movement. He actively works at home and his who is present at the bedside states that he felt weak and fatigued from the work that he has been doing during this week. ED course Vitals: are 130/81, pulse 63, respiratory 18, temperature 97.9 saturating on room air. LABs: Hemoglobin is 14, platelets 137, TSH 2.79, triglycerides 111, cholesterol 119, LDL 68, HDL 29, BUN 9, creatinine 0.7 UA: Urine drug screen, urinalysis negative for any infection. Teleneurologist recommended thrombolytics but the patient refused. Images: CT head is negative for any hemorrhage, mass or any midline shift. CT neck shows 50 to 70% stenosis on right carotid bifurcation and right internal carotid, 80% stenosis on the left carotid bifurcation and left internal carotid. MRI head negative for any hemorrhage or ischemia Echo showing normal ejection fraction 45 to 50%, indeterminate diastolic function, mild AV sclerosis, moderate mitral annular calcification, trace MR, trace TR. Past medical history: History of remote gout and used allopurinol long time ago, postherpetic neuralgia shingles treated in 2023, and currently being treated for another episode of shingles starting October 2024 with pregabalin. Meds:He only takes lisinopril 5 mg once a day which was started by Dr. Myles for his high blood pressure 2 years back Past surgical history: Lower back surgery in 2004, hip replacement in 2007 and 2008, shoulder surgery in 2009 and 2011, hand surgery, hammertoe surgery 2 years back Social history: Denies alcohol, smoking, or any other drug usage. 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 Lives with his here in [place]. Allergic history: NKDA Family history: History of stroke, quadruple bypass in his father at the age of 84 and brain aneurysm on her maternal side on his maternal side 04/02/25:Patient was seen and examined at bedside. No acute overnight events. Patient?s heart rate improved to the 50s. He denies dizziness, vision changes, shortness of breath, or any other associated symptoms. He is currently in sinus bradycardia and is not taking any beta-blockers or other heart-rate?lowering medications. We recommend obtaining a carotid duplex to assess flow velocities and, if indicated, a CT scan of the neck for further evaluation. From cardiology standpoint patient can continue with the same medication as he was on, and follow-up outpatient with cardio. Exam Vital Signs Temp Pulse Resp BP Pulse Ox O2 Del Method O2 Flow Rate 97.2 F 50 L 18 142/77 H 94 L Oxy Mask 5 04/02/25 08:00 04/02/25 08:00 04/02/25 08:00 04/02/25 08:00 04/02/25 08:00 04/02/25 08:00 04/02/25 08:00 Narrative Exam GENERAL: NAD, AAOx3 HEENT: Moist mucosa. Eyes open, symmetrical, & clear CARDIO: Slow regular rhythm Noted. No Murmurs. PULM: No noted coughing/dyspnea CTA B/L, no R/W/R GI: Abdomen soft, nondistended, non Tender SKIN/MSK/EXT: No wounds/rashes/amputations, no pain on palpation.No Edema. Pedal pulses present B/L NEURO: AAOx3, no focal neuro deficits, able to move all 4 extremities Objective Labs 04/03/25 04:54 04/03/25 04:54 Labs: Laboratory Results - last 24 hr 04/02/25 05:44 WBC 3.7 L RBC 3.77 L Hgb 12.5 L Hct 37.0 L MCV 98 MCH 33.2 MCHC 33.8 RDW Std Deviation 46.5 H Plt Count 84 L D Neut % (Auto) 52 Lymph % (Auto) 34 [place] % (Auto) 9 Eos % (Auto) 4 Baso % (Auto) 1 Neut # (Auto) 2.0 Lymph # (Auto) 1.3 [place] # (Auto) 0.3 Eos # (Auto) 0.2 Baso # (Auto) 0.0 Immature Gran # (Auto) 0.00 Absolute Nucleated RBC 0.00 Immature Gran % 0 Nucleated RBC % 0 Sodium 144 Potassium 4.3 Chloride 112 H Carbon Dioxide 23.5 Anion Gap 9 BUN 10 Creatinine 0.8 Estim Creat Clear Calc 78.7 eGFR > 60 BUN/Creatinine Ratio 13 Glucose 88 Calculated Osmolality 284 Calcium 8.2 L Corrected Calcium 8.6 Phosphorus 3.0 Magnesium 1.8 Total Bilirubin 0.5 AST 34 ALT 18 Alkaline Phosphatase 63 Total Protein 5.7 Albumin 3.5 Globulin 2.2 L Albumin/Globulin Ratio 1.6 ABG Interpretation ABG results: 03/31/25 23:47 ABG pH 7.36 ABG pCO2 42 ABG pO2 69 L ABG HCO3 23 ABG O2 Saturation 94 ABG Base Excess -2 Quality Measures Quality Measures VTE prophylaxis Advance care planning discussed with:: patient Assessment & Plan Assessment Current Active Medications: Generic Name Dose Route Start Last Admin Trade Name Freq PRN Reason Stop Dose Admin Acetaminophen 650 mg 03/31/25 22:00 04/02/25 08:22 Acetaminophen 325 Mg Tablet PO 04/30/25 21:59 650 mg Q6H PRN Administration Fever >100.4 or pain 1-3 Aspirin 81 mg 04/01/25 09:00 04/02/25 08:21 Aspirin Ec 81 Mg Tabec PO 05/01/25 08:59 81 mg QDAY ERNIE Administration Atorvastatin Calcium 40 mg 04/01/25 21:00 04/01/25 20:56 Atorvastatin Calcium 10 Mg Tablet PO 05/01/25 20:59 40 mg HS ERNIE Administration Diphenhydramine HCl 25 mg 04/01/25 00:47 Diphenhydramine Inj 50 Mg/Ml Vial IVP 05/01/25 00:46 X1 PRN hives/allergic rection Docusate Sodium 100 mg 04/01/25 09:00 04/02/25 08:21 Docusate Sod 100 Mg Capsule PO 05/01/25 08:59 100 mg QDAY ERNIE Administration Protocol Famotidine 20 mg 04/01/25 09:00 04/02/25 08:22 Famotidine Inj 10 Mg/Ml Vial 2 Ml IVP 05/01/25 08:59 20 mg Q12HR RENIE Administration Labetalol HCl 10 mg 03/31/25 20:58 Labetalol Inj 5 Mg/Ml Vial 20 Ml IVP Q15M PRN HYPER Labetalol HCl 10 mg 03/31/25 22:09 Labetalol Inj 5 Mg/Ml Vial 20 Ml IVP 04/30/25 22:08 Q4HR PRN SBP>220 Ondansetron HCl 4 mg 03/31/25 20:58 03/31/25 22:00 Ondansetron Inj 2 Mg/Ml Inj 2 Ml IVP 04/30/25 20:57 4 mg Q4HR PRN Administration NAUSEA OR VOMITING Karen Quach is a 79-year-old male with past medical history of postherpetic neuralgia, hypertension presented to the ED with complaints of lightheadedness, dizziness, imbalance in walking started 7 PM on 03/31 night. He says he went to the bathroom and after that he felt dizzy, lightheaded, nauseous with room spinning sensation starting at 7 PM which lasted until today morning. He was admitted for stroke like symptoms. Cardiology was consulted for his bradycardia in 40s. # Bradycardia-sinus bradycardia Bradycardia-patient sinus bradycardia with a heart rate out on 40 to 50 bpm when he sleeps patient is apparently a has a heart rate in the 30s. On passive exercise patient heart rate has increased to the 50s even when he stands up indicating good chronotropic response. No indication for pacemaker at the present point of time. Previous EKGs reviewed and patient always has been normal sinus rhythm and unclear etiology at the present moment. . Recommendations: Avoid beta-blockers calcium channel blockers and other rate control medications including Aricept. Continue telemetry and keep potassium greater than 4 and magnesium greater than 2.0 at all times. Follow-up outpatient with cardiology # New onset mild systolic congestive heart failure #Essential hypertension-currently stable #Coronary artery calcification noted on the CT chest in January 2025 ECHO: Summary 1. The echocardiogram is normal by two-dimensional, color flow imaging, and Doppler interrogation. 2. Left ventricle size is normal and systolic function is mildly reduced. Estimated ejection fraction is 45-50%. There is indeterminate diastolic function. There is normal geometry noted. 3. Right ventricle chamber size is mildly enlarged with normal systolic function. 4. There is mild aortic valve sclerosis with no stenosis. 5. Moderate mitral annular calcification is present. 6. There is trace mitral valve regurgitation. 7. There is trace tricuspid valve regurgitation. 8. Agitated saline contrast was performed, with no evidence of intra-cardiac shunt. # TIA-rule out CVA-presented with lightheadedness, dizziness and imbalance while walking along with ringing sensation in his ears. # Bilateral carotid artery stenosis-check carotid duplex # Morbid obesity #Chronic back pain status post work injury and multiple surgeries #Osteoarthritis status post bilateral hip replacement, Patient care was discussed with attending physician Dr. Janet Santiago MD PGY-3 I have carefully reviewed this document. Due to imperfections in the voice software, there could be grammatical errors including phonetic/typographic errors. This in no way compromises the medical care the patient is receiving Attending Provider Attestation/Addendum I have personally seen and examined the patient separately on the above date of service and discussed the plan of care with the resident. I reviewed the resident Dr. Janet Beebe consultation progress note and agree with the resident findings and plan in the note above and have also edited the documentation to reflect my findings and plan. 79-year-old male with a past medical history of obesity, essential hypertension, chronic low back pain status post back surgery in 2004 status post work injury, diverticulosis, osteoarthritis with bilateral hip replacement as well as shoulder surgery arm surgery, recent diagnosis of shingles with postherpetic neuralgia presented to the emergency department for further evaluation of lightheadedness and dizziness along with imbalance while walking. Patient apparently has been in good state of health until couple of months ago when he started experiencing episodes of dizziness lightheadedness along with ringing sensation of the ear as well as room sensing sensation which is infrequent initially but yesterday he had these episodes lasting for more than half hour along with imbalance with walking which did not made him come to the emergency department. Patient was also recently diagnosed with shingles and was treated by his primary care for the same and has some post aortic neuralgia. His labs and vitals in the emergency department appear to be stable he was admitted for further evaluation of possible stroke or TIA. MRI brain was negative for any acute pathology. CTA head and neck showed 50 to 70% stenosis of the right carotid bifurcation Clinical artery 90% stenosis of the left carotid bifurcation and left internal carotid. Posterior circulation appear intact. Echo was also performed which showed mildly reduced LV function with an EF of 40 to 45%, indeterminate diastolic function, normal RV function. Mildly enlarged RV, RVSP 30 mmHg. Moderate aortic valve sclerosis without stenosis. Moderate MAC, mild TR and MR. Bubble study negative. EKG and telemetry showed bradycardia and cardiology consulted for further evaluation. 1. TIA-rule out CVA-presented with lightheadedness, dizziness and imbalance while walking along with ringing sensation in his ears. 2. Bradycardia-sinus bradycardia 3. New onset mild systolic congestive heart failure 4. Essential hypertension 5. Bilateral carotid artery stenosis-check carotid duplex 6. Coronary artery calcification noted on the CT chest in January 2025 7. Morbid obesity 8. Chronic back pain status post work injury and multiple surgeries 9. History of single status post aortic valve 10. Osteoarthritis status post bilateral hip replacement, Patient presentation concerning for TIA or CVA and neurology following. MRI of the brain was negative for any infarct or hemorrhage. CTA head and neck did not show 70 to 80% stenosis of the right internal carotid artery bifurcation along with the right internal carotid artery as well as 80% stenosis of the left internal carotid artery bifurcation. Bubble study was negative for any PFO or ASD on echo. Overall appears to be posterior circulation TIA but will need to rule out other causes including middle ear pathology given his ringing sensation in his ears. Will need ENT consultation. Recommend to check orthostatics as they have not been performed since admission. Also recommend to check bilateral carotid artery duplex to evaluate the carotid artery stenosis as CT can overestimate the carotid artery stenosis secondary to blooming artifact. Started on aspirin as well as statin and neurology following. Bradycardia-patient sinus bradycardia with a heart rate out on 40 to 50 bpm when he sleeps patient is apparently a has a heart rate in the 30s. On passive exercise patient heart rate has increased to the 50s even when he stands up indicating good chronotropic response. No indication for pacemaker at the present point of time. Avoid beta-blockers calcium channel blockers and other rate control medications including Aricept. Previous EKGs reviewed and patient always has been normal sinus rhythm and unclear etiology at the present moment. Continue telemetry and keep potassium greater than 4 and magnesium greater than 2.0 at all times. 04/02/25: Patient?s heart rate improved to the 50s. He denies dizziness, vision changes, shortness of breath, or any other associated symptoms. He is currently in sinus bradycardia and is not taking any beta-blockers or other heart-rate?lowering medications. Recommend to follow-up in the office in 7 days. New onset mild systolic CHF: Echo from 03/31/2025 showed mildly reduced LV function with an EF of 40 to 45%, indeterminate diastolic function, normal RV function. Mildly enlarged RV, RVSP 30 mmHg. Moderate aortic valve sclerosis without stenosis. Moderate MAC, mild TR and MR. Bubble study negative. Does not appear to be fluid overloaded. BNP 79. No clear etiology at the present moment and patient will need further evaluation including ruling ischemic as well as nonischemic etiologies for the CHF we will continue further workup as outpatient as patient denies any cardiac symptoms at the present moment. Will need goal-directed medical therapy but cannot give beta-florencio because of bradycardia and recommend to start Entresto after stopping the lisinopril for 36 hours. Strict troponin elevation 2 g sodium diet. Coronary artery calcification noted on LAD LCx as well as RCA on the recent chest CTA done in January 2025 patient does have risk factors for CAD and will continue rest of the workup as outpatient as patient does not have any chest pain or chest pressure at the present point of time Management of rest of the medical conditions as per primary team and other consultants. Thank you for the consult and allowing me to participate in the care of the patient. Cardiology will continue to follow. Francis Barry M.D. Interventional Cardiology
--- NOTE | 2025-04-02 12:34 | PC.PT ---
PT eval only. Patient was xI with bed mobility, transfers, and ambulation using no AD. Patient is safe to ambulate to the bathroom and in the halls with no staff and no AD. RN made aware.
--- NOTE | 2025-04-02 16:21 | ESPR_ITS ---
Documentation for date of: 04/02/25 Subjective Subjective Interval history: Patient seen this morning sitting up in bed, alert and pleasant. He reports that he feels ?a lot better today.? Denies dizziness, headache, visual changes, weakness, numbness, chest pain, palpitations, shortness of breath, nausea, or vomiting. States he walked with physical therapy this morning and was able to ambulate independently with good stability. He believes his symptoms were related to overexertion at home prior to admission. He understands the plan and voiced no concerns. He is aware that the carotid duplex has not yet been completed and is agreeable to staying until results are available for safe discharge planning. Exam Vital Signs Temp Pulse Resp BP Pulse Ox O2 Del Method O2 Flow Rate 97.3 F 54 L 18 132/59 H 97 Room Air 5 04/02/25 12:00 04/02/25 12:00 04/02/25 12:00 04/02/25 12:00 04/02/25 12:00 04/02/25 12:00 04/02/25 08:00 Narrative Exam General: AOx4, NAD, well-nourished, no cyanosis, pallor, or diaphoresis HEENT: Normocephalic, atraumatic, no facial asymmetry, PERRLA, EOMI Cardiac: Slow rate and rhythm, no murmurs, rubs, or gallops. Respiratory: Clear to auscultation, normal effort, no accessory muscle use Abdomen: Soft, non-tender, normal bowel sounds Neuro: NIHSS 0. No motor deficits, CN II-XII intact, no ataxia, no sensory loss, normal coordination and speech Extremities: No edema or abnormal range of motion Objective Labs 04/03/25 04:54 04/03/25 04:54 Labs: Laboratory Results - last 24 hr 04/02/25 05:44 WBC 3.7 L RBC 3.77 L Hgb 12.5 L Hct 37.0 L MCV 98 MCH 33.2 MCHC 33.8 RDW Std Deviation 46.5 H Plt Count 84 L D Neut % (Auto) 52 Lymph % (Auto) 34 [place] % (Auto) 9 Eos % (Auto) 4 Baso % (Auto) 1 Neut # (Auto) 2.0 Lymph # (Auto) 1.3 [place] # (Auto) 0.3 Eos # (Auto) 0.2 Baso # (Auto) 0.0 Immature Gran # (Auto) 0.00 Absolute Nucleated RBC 0.00 Immature Gran % 0 Nucleated RBC % 0 Sodium 144 Potassium 4.3 Chloride 112 H Carbon Dioxide 23.5 Anion Gap 9 BUN 10 Creatinine 0.8 Estim Creat Clear Calc 78.7 eGFR > 60 BUN/Creatinine Ratio 13 Glucose 88 Calculated Osmolality 284 Calcium 8.2 L Corrected Calcium 8.6 Phosphorus 3.0 Magnesium 1.8 Total Bilirubin 0.5 AST 34 ALT 18 Alkaline Phosphatase 63 Total Protein 5.7 Albumin 3.5 Globulin 2.2 L Albumin/Globulin Ratio 1.6 ABG Interpretation ABG results: 03/31/25 23:47 ABG pH 7.36 ABG pCO2 42 ABG pO2 69 L ABG HCO3 23 ABG O2 Saturation 94 ABG Base Excess -2 Quality Measures Quality Measures VTE prophylaxis Advance care planning discussed with:: patient and spouse Assessment & Plan Assessment Current Active Medications: Generic Name Dose Route Start Last Admin Trade Name Freq PRN Reason Stop Dose Admin Acetaminophen 650 mg 03/31/25 22:00 04/02/25 08:22 Acetaminophen 325 Mg Tablet PO 04/30/25 21:59 650 mg Q6H PRN Administration Fever >100.4 or pain 1-3 Aspirin 81 mg 04/01/25 09:00 04/02/25 08:21 Aspirin Ec 81 Mg Tabec PO 05/01/25 08:59 81 mg QDAY ERNIE Administration Atorvastatin Calcium 40 mg 04/01/25 21:00 04/01/25 20:56 Atorvastatin Calcium 10 Mg Tablet PO 05/01/25 20:59 40 mg HS ERNIE Administration Diphenhydramine HCl 25 mg 04/01/25 00:47 Diphenhydramine Inj 50 Mg/Ml Vial IVP 05/01/25 00:46 X1 PRN hives/allergic rection Docusate Sodium 100 mg 04/01/25 09:00 04/02/25 08:21 Docusate Sod 100 Mg Capsule PO 05/01/25 08:59 100 mg QDAY ERNIE Administration Protocol Famotidine 20 mg 04/01/25 09:00 04/02/25 08:22 Famotidine Inj 10 Mg/Ml Vial 2 Ml IVP 05/01/25 08:59 20 mg Q12HR ERNIE Administration Labetalol HCl 10 mg 03/31/25 22:09 Labetalol Inj 5 Mg/Ml Vial 20 Ml IVP 04/30/25 22:08 Q4HR PRN SBP>220 Ondansetron HCl 4 mg 03/31/25 20:58 03/31/25 22:00 Ondansetron Inj 2 Mg/Ml Inj 2 Ml IVP 04/30/25 20:57 4 mg Q4HR PRN Administration NAUSEA OR VOMITING Plan 79-year-old male with HTN, shingles nerve pain, and chronic back pain, presenting with transient stroke-like symptoms, now stable with sinus bradycardia (HR 56), pending MRI brain and echocardiogram, cardiology consulted for bradycardia management. #TIA Likely TIA given transient symptoms (dizziness, imbalance, brief visual changes), with significant bilateral carotid stenosis (R ICA 50?70%, L ICA 80%). Imaging so far negative for acute infarct. Plan: * Continue aspirin 81 mg daily only * Continue atorvastatin 40 mg nightly * Monitor neuro status; no deficits today * Carotid duplex still pending # Sinus bradycardia EKG shows sinus bradycardia without heart block. HR 30s?50s; patient asymptomatic; positive chronotropic response on exertion. Plan: * Continue telemetry * Follow cardiology recommendations (no pacemaker needed now) * Avoid beta-blockers and jasvir agents * Continue hydration * Recheck vitals periodically for symptoms # Hypertension BP controlled; out of permissive window. Plan: * Labetalol 10 mg IVP Q4hr PRN for SBP >220 * Restart amlodipine if bp elevated # Chronic pain # Herpes zoster nerve pain # Prior spinal surgeries Patient?s back pain is managed with low-dose opioids at home, reports hives with Narco, managed with Benadryl. Plan: * Continue PRN meds for back pain * Acetaminophen for mild discomfort * Benadryl PRN for hives # Mild anemia Hgb dropped from 14 to 12.5, no active bleeding identified. Monitoring for any further drops. Plan: * Continue to monitor CBC * Reassess iron studies if necessary Health Maintenance: Code status: Full DVT prophylaxis: SCDs GI prophylaxis: Famotidine Diet: Regular Disposition: Pending carotid duplex completion and cardiology clearance ----- Plan discussed with attending physician Dr. Rissa Schroeder MD PGY-1 Internal Medicine Attending Provider Attestation/Addendum I have examined the patient, reviewed labs and imaging findings, discussed the case with the resident(s), and reviewed entered orders. I agree with the plan of care as outlined in this note. Dr. Rissa MD
--- NOTE | 2025-04-02 16:38 | PC.NURSE ---
Pt pending US for dizziness and carotid stenosis, attempted to call multiple times within the past hour and NA
[2025-04-02] MEDS: ATORVASTATIN CALCIUM 10 MG TABLET 40 MG PO (21:16)
--- NOTE | 2025-04-02 21:16 | XR_ITS ---
Examination: Carotid arterial duplex scan, ultrasound. Date and time of exam: April 02, 2025, 1626 hours INDICATIONS: Dizziness episodes beginning 2 days ago Technique: Multiple sonographic images have been obtained of the carotid arteries and vertebral arteries, B-mode/grayscale imaging and Doppler spectral analysis and color flow Peak systolic and diastolic velocities have been recorded. Systolic diastolic ratios have been calculated. Findings: Right peak systolic velocities: Distal internal carotid artery peak systolic velocity is 1.4 M/sec Proximal internal carotid artery peak systolic velocity is 1.3 M/sec Carotid bifurcation peak systolic velocity is 0.8 M/sec External carotid artery peak systolic velocity is 1.7 M/sec Vertebral artery flow is antegrade. Left peak systolic velocities: Distal internal carotid artery peak systolic velocity is 1.2 M/sec Proximal internal carotid artery peak systolic velocity is 1.5 M/sec Carotid bifurcation peak systolic velocity is 1.0 M/sec External carotid artery peak systolic velocity is 1.3 M/sec Vertebral artery flow is antegrade Doppler waveform analysis demonstrates bilateral spectral broadening Impression: Right internal carotid artery demonstrates 30 to 50% stenosis. Left internal carotid artery demonstrates 20 to 40% stenosis. Consider correlation with CTA carotid arteries post intravenous contrast follow-up
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
[2025-04-03] VITALS: BP 163/78; PULSE 50; PULSE 56; RESP 23; TEMP 36.4; O2SAT 96
[2025-04-03 04:00] VITALS: BP 162/80; PULSE 55; PULSE 56; RESP 16; TEMP 36.3; O2SAT 96
[2025-04-03 05:51] LABS: Basophils # (Auto) 0.0 Thou/mm3 (0.0-0.2); Basophils % (Auto) 1 % (0-2.5); Eosinophils # (Auto) 0.2 Thou/mm3 (0.0-0.5); Eosinophils % (Auto) 5 % (0-10); Hematocrit 38.5 % (41.0-53.0); Hemoglobin 13.1 g/dL (13.5-16.0); Immature Granulocytes Auto 0.00 Thou/mm3 (0.00-0.00); Lymphocytes # (Auto) 1.2 Thou/mm3 (1.0-4.8); Lymphocytes % (Auto) 30 % (10-50); Mean Corpuscular HGB Conc 34.0 g/dl (31.0-37.0); Mean Corpuscular Hemoglobin 32.7 pg (25.0-35.0); Mean Corpuscular Volume 96 fL (80-100); Monocytes # (Auto) 0.4 Thou/mm3 (0.0-0.8); Monocytes % (Auto) 11 % (0-12); Neutrophils # (Auto) 2.1 Thou/mm3 (1.8-7.7); Neutrophils % (Auto) 54 % (37-80); Nucleated Red Blood Cell # 0.00 Thou/mm3 (0.00-0.00); Nucleated Red Blood Cell % 0 /100 WBC (0); Platelet Count 95 Thou/mm3 (140-440); RDW Standard Deviation 44.1 fL (35.1-43.9); Red Blood Count 4.01 Miln/mm3 (4.50-5.90); White Blood Count 4.0 Thou/mm3 (3.8-10.6)
[2025-04-03 06:00] VITALS: BMI 37.5
[2025-04-03 06:19] LABS: Alanine Aminotransferase 18 U/L (10-49); Albumin, Serum 3.8 gm/dL (3.4-4.8); Albumin/Globulin Ratio 1.7 (1.2-2.2); Alkaline Phosphatase 72 U/L (46-116); Anion Gap 9 (7-16); Aspartate Amino Transferase 32 U/L (0-34); BUN/Creatinine Ratio 11 Ratio (12-20); Bilirubin,Total 0.6 mg/dL (0.3-1.2); Blood Urea Nitrogen 8 mg/dL (9-23); Calcium 8.7 mg/dL (8.3-10.6); Calcium (Corrected) 8.9 mg/dL (8.5-10.1); Carbon Dioxide 27.3 mMol/L (20.0-31.0); Chloride 108 mMol/L (98-107); Creatinine (Component) 0.7 mg/dL (0.6-1.3); Estimated Creatinine Clearance 89.4 mL/min (>60); Globulin 2.3 gm/dL (2.3-3.5); Glucose 92 mg/dL (74-106); Magnesium 1.8 mg/dL (1.6-2.6); Osmolality,Calculated 285 (275-295); Phosphorous 3.2 mg/dL (2.4-5.1); Potassium 4.1 mMol/L (3.4-5.1); Sodium 144 mMol/L (136-145); Total Protein 6.1 gm/dL (5.7-8.2); eGFR > 60 See Note
[2025-04-03 08:00] VITALS: BP 163/80; PULSE 63; PULSE 67; RESP 18; TEMP 36.3; O2SAT 96
[2025-04-03 09:00] VITALS: PULSE 63; RESP 18; RESP 97; O2SAT 96
[2025-04-03] MEDS: ASPIRIN EC 81 MG TABEC PO (09:01)
[2025-04-03] MEDS: DOCUSATE SOD 100 MG CAPSULE PO (09:02)
[2025-04-03] MEDS: FAMOTIDINE INJ 10 MG/ML VIAL 2 ML 20 MG IVP (09:02)
[2025-04-03] MEDS: LACTULOSE SYRUP 20 GM/30 ML UDC 30 GM PO (09:50)
--- NOTE | 2025-04-03 10:41 | PC.SS ---
rounding note: Patient to d/c once he has a b.m. today
--- NOTE | 2025-04-03 11:25 | ESPR_ITS ---
Documentation for date of: 04/03/25 Subjective Subjective Interval history: Patient was seen and examined at bedside. No acute overnight events. Patient?s heart rate improved to the 60s. He denies dizziness, vision changes, shortness of breath, or any other associated symptoms.Carotid Duplex showing Mild stenosis in RT ICA-30-50% and Mild stenosis in Lt ICA with 20-40%. His HR is improved and consistently staying in 60s now. 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 Recommended follow up with the sociology adjunct instructor outpatient after discharge. Exam Vital Signs Temp Pulse Resp BP Pulse Ox O2 Del Method O2 Flow Rate 97.3 F 63 18 163/80 H 96 Room Air 5 04/03/25 08:00 04/03/25 09:00 04/03/25 09:00 04/03/25 08:00 04/03/25 09:00 04/03/25 08:00 04/03/25 09:00 Objective Labs 04/03/25 04:54 04/03/25 04:54 Labs: Laboratory Results - last 24 hr 04/03/25 04:54 WBC 4.0 RBC 4.01 L Hgb 13.1 L Hct 38.5 L MCV 96 MCH 32.7 MCHC 34.0 RDW Std Deviation 44.1 H Plt Count 95 L Neut % (Auto) 54 Lymph % (Auto) 30 [place] % (Auto) 11 Eos % (Auto) 5 Baso % (Auto) 1 Neut # (Auto) 2.1 Lymph # (Auto) 1.2 [place] # (Auto) 0.4 Eos # (Auto) 0.2 Baso # (Auto) 0.0 Immature Gran # (Auto) 0.00 Absolute Nucleated RBC 0.00 Immature Gran % 0 Nucleated RBC % 0 Sodium 144 Potassium 4.1 Chloride 108 H Carbon Dioxide 27.3 Anion Gap 9 BUN 8 L Creatinine 0.7 Estim Creat Clear Calc 89.4 eGFR > 60 BUN/Creatinine Ratio 11 L Glucose 92 Calculated Osmolality 285 Calcium 8.7 Corrected Calcium 8.9 Phosphorus 3.2 Magnesium 1.8 Total Bilirubin 0.6 AST 32 ALT 18 Alkaline Phosphatase 72 Total Protein 6.1 Albumin 3.8 Globulin 2.3 Albumin/Globulin Ratio 1.7 ABG Interpretation ABG results: 03/31/25 23:47 ABG pH 7.36 ABG pCO2 42 ABG pO2 69 L ABG HCO3 23 ABG O2 Saturation 94 ABG Base Excess -2 Quality Measures Quality Measures VTE prophylaxis Advance care planning discussed with:: patient Assessment & Plan Assessment Current Active Medications: Generic Name Dose Route Start Last Admin Trade Name Freq PRN Reason Stop Dose Admin Acetaminophen 650 mg 03/31/25 22:00 04/02/25 08:22 Acetaminophen 325 Mg Tablet PO 04/30/25 21:59 650 mg Q6H PRN Administration Fever >100.4 or pain 1-3 Aspirin 81 mg 04/01/25 09:00 04/03/25 09:01 Aspirin Ec 81 Mg Tabec PO 05/01/25 08:59 81 mg QDAY ERNIE Administration Atorvastatin Calcium 40 mg 04/01/25 21:00 04/02/25 21:16 Atorvastatin Calcium 10 Mg Tablet PO 05/01/25 20:59 40 mg HS ERNIE Administration Diphenhydramine HCl 25 mg 04/01/25 00:47 Diphenhydramine Inj 50 Mg/Ml Vial IVP 05/01/25 00:46 X1 PRN hives/allergic rection Docusate Sodium 100 mg 04/01/25 09:00 04/03/25 09:02 Docusate Sod 100 Mg Capsule PO 05/01/25 08:59 100 mg QDAY ERNIE Administration Protocol Famotidine 20 mg 04/01/25 09:00 04/03/25 09:02 Famotidine Inj 10 Mg/Ml Vial 2 Ml IVP 05/01/25 08:59 20 mg Q12HR ERNIE Administration Labetalol HCl 10 mg 03/31/25 22:09 Labetalol Inj 5 Mg/Ml Vial 20 Ml IVP 04/30/25 22:08 Q4HR PRN SBP>220 Ondansetron HCl 4 mg 03/31/25 20:58 03/31/25 22:00 Ondansetron Inj 2 Mg/Ml Inj 2 Ml IVP 04/30/25 20:57 4 mg Q4HR PRN Administration NAUSEA OR VOMITING Plan Main is a 79-year-old male with past medical history of postherpetic neuralgia, hypertension presented to the ED with complaints of lightheadedness, dizziness, imbalance in walking started 7 PM on 03/31 night. He says he went to the bathroom and after that he felt dizzy, lightheaded, nauseous with room spinning sensation starting at 7 PM which lasted until today morning. He was admitted for stroke like symptoms. Cardiology was consulted for his bradycardia in 40s. #Sinus Bradycardia- patient sinus bradycardia with a heart rate out on 40 to 50 bpm when he sleeps patient is apparently a has a heart rate in the 30s. On passive exercise patient heart rate has increased to the 50s even when he stands up indicating good chronotropic response. No indication for pacemaker at the present point of time. Avoid beta-blockers calcium channel blockers and other rate control medications including Aricept. Previous EKGs reviewed and patient always has been normal sinus rhythm and his bradycardia may be resulted from Possible TIA aftereffects. Continue telemetry and keep potassium greater than 4 and magnesium greater than 2.0 at all times. 04/03/25: Patient?s heart rate improved to the 60s. He denies dizziness, vision changes, shortness of breath, or any other associated symptoms. He is currently in NSR and is not taking any beta-blockers or other heart-rate?lowering medications. Recommend to follow-up in the office in 7 days. #New onset mild systolic CHF: Echo from 03/31/2025 showed mildly reduced LV function with an EF of 40 to 45%, indeterminate diastolic function, normal RV function. Mildly enlarged RV, RVSP 30 mmHg. Moderate aortic valve sclerosis without stenosis. Moderate MAC, mild TR and MR. Bubble study negative. Does not appear to be fluid overloaded. BNP 79. No clear etiology at the present moment and patient will need further evaluation including ruling ischemic as well as nonischemic etiologies for the CHF we will continue further workup as outpatient as patient denies any cardiac symptoms at the present moment. Will need goal-directed medical therapy but cannot give beta-florencio because of bradycardia and recommend to start Entresto after stopping the lisinopril for 36 hours. Strict troponin elevation 2 g sodium diet. # CAD Coronary artery calcification noted on LAD LCx as well as RCA on the recent chest CTA done in January 2025 patient does have risk factors for CAD and will continue rest of the workup as outpatient as patient does not have any chest pain or chest pressure at the present point of time # TIA-rule out CVA-presented with lightheadedness, dizziness and imbalance while walking along with ringing sensation in his ears- Recommended ENT follow up for his Tinnitus. #Mild Bilateral carotid artery stenosis # Morbid obesity #Chronic back pain status post work injury and multiple surgeries #Osteoarthritis status post bilateral hip replacement Discussed this case with Dr.Anumandla Keith Colmenares MD PGY1 Attending Provider Attestation/Addendum I have personally seen and examined the patient separately on the above date of service and discussed the plan of care with the resident. I reviewed the resident Dr. Keith Colmenares consultation progress note and agree with the resident findings and plan in the note above and have also edited the documentation to reflect my findings and plan. Francis Barry M.D. Interventional Cardiology
[2025-04-03 11:35] VITALS: PULSE 59
[2025-04-03 12:00] VITALS: BP 173/83; PULSE 60; RESP 18; TEMP 36.1; O2SAT 95
--- NOTE | 2025-04-03 12:05 | CHAP ---
Patient was visited by the Spiritual Care Volunteer who prayed for them. Volunteer was in the hospital from 11:15-12:05
--- NOTE | 2025-04-03 13:17 | PC.NURSE ---
Discharged in stable condition, with all personal belongings, DC instructions, accompanied to private vehicle with family and RN. RX sent to pharmacy. IV and telemetry DC'd with hub intact prior to discharge.
--- NOTE | 2025-04-03 16:13 | ESDS_ITS ---
Planned Discharge Date 04/03/25 DS: Providers Provider Date of admission: 03/31/25 22:07 Primary care physician: Anrde Myles Admitting Provider: Enid Amin MD Attending Provider on Admission: Enid Amin MD Consults: 03/31/25 20:58 Consult to Neurology / Tele-Neurology Routine Comment: Consulting Provider: [facility] 03/31/25 22:08 Referral Physical Therapy Routine Comment: Physician Instructions: 03/31/25 22:38 Consult to Neurology / Tele-Neurology Routine Comment: Consulting Provider: Jet Cunningham 04/01/25 14:35 Consult to Cardiology Routine Comment: Bradycardia Consulting Provider: Francis Barry Attending Provider on DC: Gonzalo Landeros MD Discharging Provider: Gonzalo Landeros MD DS: Diagnosis Problem List Completed Was Problem List Reviewed/Reconciled?: Yes Hospital Course Hospital Course Hospital course: Mr. Main Love is a 79-year-old male with a history of hypertension, herpes zoster neuralgia, and chronic post-surgical back pain who presented with sudden- onset dizziness, lightheadedness, imbalance, and generalized weakness beginning around 7 PM on 03/31. A stroke alert was activated in the ED. CT head showed no hemorrhage, and CTA neck revealed right ICA 50?70% stenosis and left ICA 80% stenosis, but no large vessel occlusion. Tele-neurology evaluated him and recommended thrombolytics (TNK); however, the patient and family declined after risks and benefits were discussed. MRI brain (04/01) was negative for acute infarct, showing only moderate chronic microvascular changes. An echocardiogram showed LVEF 45?50%, mildly enlarged RV, mild aortic valve sclerosis, and no intra-cardiac shunt. During hospitalization, the patient was noted to have sinus bradycardia (HR 30s?50s). Cardiology was consulted. EKG confirmed sinus bradycardia without heart block, and the patient demonstrated a positive chronotropic response with activity. No pacemaker was recommended. Orthostatics were checked and were not consistent with orthostatic hypotension. His dizziness progressively improved, and by discharge he was ambulating independently with physical therapy and had no residual neurological deficits. Neurology concluded that his presentation was most consistent with a TIA. Due to thrombocytopenia (platelets downtrending to 84), neurology recommended aspirin only (no DAPT). 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 A carotid duplex was ordered to further clarify the degree of stenosis, but CTA stenosis may be overestimated as recommended by Grout Machine Tender. Carotid doppler - Right internal carotid artery demonstrates 30 to 50% stenosis. Left internal carotid artery demonstrates 20 to 40% stenosis. He remained hemodynamically stable and symptom-free, passed his swallow screen, and was deemed medically safe for discharge with close outpatient follow-up. 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 If you do not have appointment, please follow-up with the [facility] with Dr. Landeros. Call [phone] to make an appointment. -Recommended to take Aspirin 81mg once daily, Atorvastatin 40mg during night time -Recommended to take Meclizine as needed for dizziness or vertigo -Continue rest of the home medications -Recommended to follow up with PCP for adjustment of pregabalin dose -Return to ED if symptoms persist or return Patient plan of care was discussed with the attending physician, Dr. Rissa Landeros, PGY2 Time Spent with Patient Time attestation: Total time spent providing and/or coordinating discharge services: Time spent: Greater than 30 minutes Quality: Stroke Pt Provided Written Stroke Discharge Instructions: Yes (Ruled out stroke) Exam Vital Signs Temp Pulse Resp BP Pulse Ox O2 Del Method O2 Flow Rate 97.0 F 60 18 173/83 H 95 Room Air 5 04/03/25 12:00 04/03/25 12:00 04/03/25 12:00 04/03/25 12:00 04/03/25 12:00 04/03/25 12:00 04/03/25 09:00 Narrative Exam General: Awake. HEENT: Normocephalic, atraumatic, mucous membranes moist. Heart: Regular rate and rhythm, no murmurs. Lungs: Clear to auscultation with no wheezing or crackles. Abdomen: Soft, nondistended, nontender, positive bowel sounds. ?No guarding or rebound tenderness. Neurologic: Alert and oriented x3, no gross neurological deficit, and patient able to move all 4 extremities. Extremities: No edema. Skin: No rash or ecchymoses. Discharge Plan Plan Patient Disposition: HOME (Self Care) Patient condition on transfer: Stable Care Plan Goals: -Follow-up with PCP within 1 week of discharge. If you do not have appointment, please follow-up with the [facility] with Dr. Landeros. Call [phone] to make an appointment. -Recommended to take Aspirin 81mg once daily, Atorvastatin 40mg during night ti me -Recommended to take Meclizine as needed for dizziness or vertigo -Continue rest of the home medications -Recommended to follow up with PCP for adjustment of pregabalin dose -Return to ED if symptoms persist or return Prescriptions/Referrals Prescriptions/Med Rec: New aspirin 81 mg capsule 81 mg PO QDAY Qty: 30 2RF atorvastatin [Lipitor] 40 mg tablet 40 mg PO HS Qty: 30 1RF meclizine 25 mg tablet 25 mg PO QDAY PRN (Reason: dizziness or vertigo) Qty: 30 1RF Continued acetaminophen 500 mg Tablet 500 mg PO Q6H PRN (Reason: Pain) pregabalin 300 mg capsule 300 mg PO BID Patient Comments: TAKE 1 CAPSULE BY MOUTH TWICE A DAY hydrocodone-acetaminophen 5-325 mg tablet 1 tab PO Q12H PRN (Reason: pain) Patient Comments: TAKE 1 TABLET BY MOUTH TWICE A DAY NEEDED FOR PAIN amlodipine 5 mg tablet 5 mg PO QDAY Patient Comments: TAKE 1 TABLET BY MOUTH EVERY DAY Referrals: Francis Barry MD [Physician, Cardiology] Andre Myles [Primary Care Provider] Patient/Caregiver Discharge Instructions Discharge Activity: activity as tolerated Education Materials: Blockage Carotid Artery, Carotid Artery Problems: Stroke, Dizziness Balance Probs Fainting, Vertigo Medicine Tx, Vertigo Staying Safe, ED Dizziness, Uncertain Cause, ED TIA: Transient Ischemic Attack Print Language: Italian Stand Alone Forms: Hayde Award Info., Patient Portal Info Letter Discharge Order Discharge Orders: Discharge (Routine); Ordered 04/03/25 Ordered By: Gonzalo Landeros Quality Discharge Quality Measures VTE prophylaxis Attestestation Attestation I have examined the patient, reviewed labs and imaging findings, discussed the case with the resident(s), and reviewed entered orders. I agree with the plan of care as outlined in this note. Time Spent: [address] Rissa MD
== END 2025-04-03 13:17 | disposition home or self-care (01) | DRG 69 ==
LOC: SERX 21:52 → SERHOLD 22:13 → S2NX 04-01 04:09
PROVIDERS: Admitting Provider Student in an Organized Health Care Education/Training Program; Emergency Provider Emergency Medicine; PCP Internal Medicine; Visit Provider Student in an Organized Health Care Education/Training Program
DX: G45.9 Transient cerebral ischemic attack, unspecified (principal); I16.1 Hypertensive emergency; I50.20 Unspecified systolic (congestive) heart failure; B02.29 Other postherpetic nervous system involvement; M54.50 Low back pain, unspecified; G89.29 Other chronic pain; I11.0 Hypertensive heart disease with heart failure; I25.10 Atherosclerotic heart disease of native coronary artery without angina pectoris; E66.01 Morbid (severe) obesity due to excess calories; R00.1 Bradycardia, unspecified; D69.6 Thrombocytopenia, unspecified; H93.19 Tinnitus, unspecified ear; M16.0 Bilateral primary osteoarthritis of hip; Z79.82 Long term (current) use of aspirin; Z96.643 Presence of artificial hip joint, bilateral; Z79.899 Other long term (current) drug therapy; Z79.02 Long term (current) use of antithrombotics/antiplatelets
CPT/HCPCS: 36415; 36600; 70450; 70496; 70498; 70544; 71045; 80053; 80061; 80307; 80320; 81001; 82803; 83036; 83735; 83880; 84100; 84443; 84484; 85025; 85610; 85730; 93005; 93306; 93880; 96361; 96374; 97162; 99285; A4649; J2270; J2405; J3490; J7030; Q9967; A9270; G0480

== ENCOUNTER 2025-05-16 01:02 | Inpatient (IN) | payer MEDICARE, SELFPAY ==
[2025-05-16] VITALS (22 sets, daily range): BP systolic 121–169; BP diastolic 52–91; PULSE 48–77; RESP 8–97; TEMP 36.1–36.6; O2SAT 94–98; BMI 34.5
--- NOTE | 2025-05-16 | XR_ITS ---
Study: MRI of the brain by stroke protocol without contrast. Brain and carotid MRA without contrast. INDICATION: Medical history of TIA. Current chief complaint of dizziness, nausea and vomiting approximately 1 hour before hospital presentation. Blood pressure 190 systolic during EMS transport. TECHNIQUE: Multisequence multiplanar MRI of the brain noncontrast cerebral MRA. COMPARISON: MR stroke protocol of 01 April 2025. FINDINGS: The lateral ventricles are normal in size and contour. There is no midline shift, intracranial bleed, mass, cortical edema or focus of restricted diffusion. White-morse junctions are preserved. The T2 FLAIR sequence shows a few scattered high signal punctate lesions in white matter bilaterally. The brainstem and cerebellum are free from focal lesions. The scalp, skull, sinuses and mastoid air cells are normal. The sella turcica and its contents are normal. Orbital contents are normal MRA demonstrates the following normal arteries: Internal carotid, A1 and A2 segments, anterior communicating, M1, M2 and M3 segments and posterior communicating bilaterally. There is no aneurysm, vascular tangle or evidence for hemorrhage. Also normal are the left vertebral, PICA, basilar, right superior cerebellar and bilateral posterior cerebral arteries. The left superior cerebellar artery is not fully visualized. Ignoring swallowing artifact, MRA of the common, a internal and external carotid arteries is grossly normal. A left vertebral artery is prominently represented. The right vertebral artery is thready and is not seen to join with the left vertebral artery to form the basilar artery. Impression: 1. No acute diagnostic abnormality. 2. Minimal small vessel white matter disease. 3. Unseen distal right vertebral artery. 4. Minimally visualized origin of the left superior cerebellar artery. 5. No significant change from 01 April 2025.
--- NOTE | 2025-05-16 01:15 | PD.EDDIZZY ---
ED Dizzyness RME/HPI General Chief Complaint: Dizziness Stated Complaint: DIZZY Arrival date/time: 05/16/25 01:02 RME / HPI RME / HPI Narrative: DR. GARDUNO MAIN ED EVALUATION: Patient with chronic recurrent episodic lightheadedness/dizziness seen initially in March of 2025 at which patient underwent stroke activation, although MRI was negative for acute infarct. Patient's symptoms thought to be due to TIA and dizziness was multifactorial. 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 Patient transported by EMS, initially hypertensive in the 190 systolic range, and normalized upon arrival to ED. Patient notes symptoms tend to worsen with movement. PMH: HTN, Hepatitis, Arthritis, Gout, Vertigo, Recent TIA, BL Carotid Stenosis, Thrombocytopenia, and Herpes zoster neuralgia PSH: ORIF, Joint Replacement Allergies: NKDA Social: Negative Related Data Home Medications ?Medication ?Instructions ?Recorded ?Confirmed acetaminophen 500 mg tablet 500 mg PO Q6H PRN Pain 03/06/21 04/01/25 amlodipine 5 mg tablet 5 mg PO QDAY 04/01/25 04/01/25 hydrocodone 5 mg-acetaminophen 325 1 tab PO Q12H PRN pain 04/01/25 04/01/25 mg tablet pregabalin 300 mg capsule 300 mg PO BID 04/01/25 04/01/25 Previous Rx's ?Medication ?Instructions ?Recorded aspirin 81 mg capsule 81 mg PO QDAY #30 caps 04/03/25 atorvastatin 40 mg tablet (Lipitor) 40 mg PO HS #30 tabs 04/03/25 meclizine 25 mg tablet 25 mg PO QDAY PRN dizziness or 04/03/25 vertigo #30 tabs Allergies Allergy/AdvReac Type Severity Reaction Status Date / Time No Known Allergies Allergy Verified 01/18/25 00:34 Review of Systems Review of Systems Systems Reviewed: All systems reviewed, normal except as documented Past Medical History Past Medical History CARDIAC: Positive Hypertension GASTROINTESTINAL: Positive Hepatitis MUSCULOSKELETAL: Positive Arthritis, Gout and Fractures ENT: Positive Cataracts OTHER HISTORY: Positive Hospitalization, Shingles, Falls, Blood Transfusions, Chicken Pox, Measles and Mumps Family History FAMILY HISTORY: Positive Family Cardiac Disorders and Family Surgery Surgical History SURGICAL: Positive Joint Replacement and Open Reduction Internal Fixation ED Exam Narrative Physical exam: GEN. APPEARANCE: The patient is alert awake oriented X-3 under no distress, lying down comfortably, does not look ill/toxic. Patient has good eye contact. Patient is cooperative. VITALS: All vitals were reviewed and the pulse ox is 96%, which is normal according to my interpretation HEENT: Normocephalic, atraumatic and nontender. Pupils are equal and reactive. Evidence of nystagmus in neutral, in addition to vertical gaze BL. Oral mucosa is moist. NECK: Supple, nontender, no meningismus, no JVD. There is no thyromegaly and no lymphadenopathy. CHEST: Nontender on palpation no deformity and no crepitus. CARDIOVASCULAR: Heart regular rhythm, no murmur or gallop rub or extra beats. LUNGS: Clear to auscultation bilaterally with symmetrical chest rise. No laboring tachypnea or wheezing. No intercostal subcostal retraction. No rales and no rhonchi. ABDOMEN: Soft, flat, nontender to palpation, no guarding or rebound tenderness. There are no abnormal masses palpated. No pulsatile masses or bruits. Active and normal bowel sounds. EXTREMITIES: Normal inspection and palpation. No edema. No cyanosis. Patient is able to move all 4 extremities well SKIN: Warm and dry, no rashes noted. MUSCULOSKELETAL: No lumbar or midline bony tenderness. There is no CVA tenderness. No paraspinal muscle spasm or tenderness. NEURO: Cranial nerves II through XII grossly intact. There are no focal neurologic deficits noted. GCS is 15. Normal finger to nose and heel to shind. PSYCHIATRIC: Patient is in normal mood and affect, cooperative. LYMPHATICS: No major lymphadenopathy noted. Course Course Course Narrative: Sepsis alert initiated. Orders made at this time are congruent with ED Adult Sepsis Order List. Re-evaluation is to be completed. 0405: Discussed with Neurologist from [facility] for possible transfer. Reviewed the patient?s HPI, PMHx, lab and/or radiology results. Declines patient for transfer. Will follow neurologist suggestion. Quality Measures Suspected type of Stroke: Unknown at this time Last known well (date): 05/16/25 Last known well (time): 01:00 Tenecteplase given: Reason(s) TPA not given: Outside the time window not given stroke Orders Category Date Time Status Bedside Blood Glucose NOW Care 05/16/25 01:20 Active Bedside Blood Glucose NOW Care 05/16/25 02:03 Active Quality Control Microbiology Supervisor NOW Care 05/16/25 02:03 Active Consult Stratigraphy Teacher NOW Care 05/16/25 02:03 Active Continuous Pulse Oximetry NOW Care 05/16/25 02:03 Completed EKG (ED ONLY) *Do not use* NOW Care 05/16/25 01:20 Completed EKG (ED ONLY) *Do not use* NOW Care 05/16/25 02:03 Completed IV [Insert IV] NOW Care 05/16/25 01:20 Active In and Out Catheter NEEDED Care 05/16/25 02:03 Active Insert IV NOW Care 05/16/25 02:03 Active NIH Stroke Scale now Care 05/16/25 02:03 Active NPO NOW Care 05/16/25 02:03 Active Neuro Check Q1HR Care 05/16/25 02:03 Active Nurse Swallow Screen x1 Care 05/16/25 02:03 Active Consult to Neurology / Tele-Neurology Routine Cons 05/16/25 02:03 Active Consult to Neurology / Tele-Neurology Routine Cons 05/16/25 02:[address] angio stroke protocol Stat Exams 05/16/25 02:[address] angio stroke protocol Stat Exams 05/16/25 02:[address] head/brain wo con Stat Exams 05/16/25 01:[address] stroke protocol Stat Exams 05/16/25 02:09 Taken EKG (ED Only) Stat Exams 05/16/25 01:20 Draft EKG (ED Only) Stat Exams 05/16/25 02:03 Ordered XR chest 1V portable Stat Exams 05/16/25 02:03 Taken CBC [CBC] Stat Lab 05/16/25 02:10 Completed CMP [Comprehensive Metabolic Panel] Stat Lab 05/16/25 02:10 Completed Drug Screen,Urine Stat Lab 05/16/25 02:11 Completed Magnesium Stat Lab 05/16/25 02:10 Completed Partial Thromboplastin Time Stat Lab 05/16/25 02:10 Completed Prothrombin Time with INR Stat Lab 05/16/25 02:10 Completed Troponin I Stat Lab 05/16/25 02:10 Completed Urinalysis, C/S if Indicated Stat Lab 05/16/25 02:11 Completed Clopidogrel [Plavix] Med 05/16/25 02:53 Discontinued 300 mg PO X1 ONE Labetalol* IV [Trandate IV] Med 05/16/25 02:03 Active 10 mg IVP Q15M PRN Metoclopramide Inj [Reglan Inj] Med 05/16/25 01:46 Discontinued 5 mg IVP X1 ONE Midazolam Inj [Versed Inj] Med 05/16/25 01:45 Discontinued 2 mg IVP X1 ONE Ondansetron Inj [Zofran Inj] Med 05/16/25 02:03 Active 4 mg IVP Q4HR PRN Sodium Chloride 0.9% 500 ml [Ns] 500 ml Med 05/16/25 01:47 Discontinued IV 500 mls/hr Oxygen Delivery NOW RT 05/16/25 02:03 Active Vital Signs Vital signs: Vital Signs Temperature 97.7 F 05/16/25 01:04 Pulse Rate 65 05/16/25 01:04 Respiratory Rate 17 05/16/25 01:04 Blood Pressure 169/79 H 05/16/25 01:04 Pulse Oximetry (%) 96 05/16/25 01:04 Oxygen Delivery Method Room Air 05/16/25 01:04 Dizziness MDM Narrative MDM Narrative:: Scribe Attestation: IFaye am scribing for and in the presence of Dr. Garduno. Provider Notation: Although this document has been carefully reviewed, there may still be some phonetic and other typographical errors. These errors are purely grammatical due to imperfections in the software program and should not be construed in any way to compromise the substance of the patient's medical care during this visit. Patient with chronic recurrent episodic lightheadedness/dizziness seen initially in March of 2025 at which patient underwent stroke activation, although MRI was negative for acute infarct. Patient's symptoms thought to be due to TIA and dizziness was multifactorial. Please see PE findings. Laboratory markers, including CBC and serum chemistries, demonstrated normal Hgb and platelet count. Serum chemistries were essentially unremarkable, excluding mildly elevated LFT's. UA is currently pending. Clinical exam concerning for nystagmus in normal gaze and rotary component with upward gaze. Head/Brain CT without acute signs of hemorrhage, mass, or edema. Head/Neck CTA demonstrates occlusion of the right distal vertebral artery and M2 segment of the right MCA. Case discussed with gibran and given low NIH score will differ on thrombolytics at this time and refer for possible clot retreival. Patient received IV benozodiazepines with clinical improvement. Gibran consulted and personally evaluated patient who suggests dual-antiplatelet, full-dose Plavix given, and repeat workup given caliber circulation vessels is low. Consulted with hospitalist team who agree to admit the patient. 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 Patient data External records reviewed:: [facility] previous records (Reviewed prior ED records from 03/31/25. Patient was seen for Hypertensive urgency.) and EMS form Clinical information provided by:: patient and EMS Social determinants that could affect healthcare access:: none Patient has the following chronic illnesses:: HTN, Hepatitis, Arthritis, Gout, Vertigo, Recent TIA, BL Carotid Stenosis, Thrombocytopenia, and Herpes zoster ne How is presenting disease/condition affected by chronic disease/condition?: exacerbated by Evaluation data The following diagnostics were reviewed and interpreted by me:: lab results, radiology exam(s) and EKG tracing(s) (EKG at 01:23 shows normal sinus rhythm at 64, normal axis, no ectopy, no signs of acute ischemia, per my interpretation.) Lab and/or radiology exams considered but not ordered:: None Interpretation Summary: RADIOLOGY Head/Brain CT: Findings: There is no evidence of intracranial hemorrhage, mass effect or midline shift. There is mild volume loss. The calvarium is unremarkable. The mastoid air cells and the visualized paranasal sinuses are clear. Impression: No evidence of intracranial hemorrhage, mass effect or midline shift. Mild volume loss. Aspect score 10. Head/Neck CTA: Findings: Head: Probable occlusion of an M2 branch of the right MCA. The bilateral internal carotid, left middle and bilateral anterior cerebral arteries are patent bilaterally. The intracranial vertebral arteries are patent. The vertebrobasilar junction, basilar and posterior cerebral arteries are patent. No evidence of critical stenosis or aneurysm. Neck: The aortic arch to the extent visualized as well as the origins of the right brachiocephalic, left common carotid, and left subclavian arteries are patent. The common carotid arteries, carotid bulbs, and internal and external carotid arteries are patent. The origins of the vertebral arteries are unremarkable. The left vertebral artery is dominant. Near occlusion of the distal right vertebral artery. The soft tissues of the neck are unremarkable. Degenerative changes of the imaged portions of the spine. Chronic multilevel disc disease. No acute fractures. Coronary arteries calcifications. 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 Correlation with MRI is recommended. Neck: Near occlusion of the distal right vertebral artery. Chest X-Ray: Pending official radiology report. Medications / Prescriptions Medications or Prescriptions considered but not ordered:: None Medication administrations:: Medication Administration History Labetalol HCl (Labetalol Inj 5 Mg/Ml Vial 4 Ml) 10 mg IVP Q15M PRN PRN Reason: hypertension Ondansetron HCl (Ondansetron Inj 2 Mg/Ml Inj 2 Ml) 4 mg IVP Q4HR PRN PRN Reason: NAUSEA OR VOMITING Stop: 06/15/25 02:02 Discontinued Medications Clopidogrel Bisulfate (Clopidogrel Bisulfate 75 Mg Tablet) 300 mg PO X1 ONE Stop: 05/16/25 02:54 Last Admin: 05/16/25 03:07 Dose: 300 mg Documented By: EE Sodium Chloride (Ns) 500 mls @ 500 mls/hr IV .Q1H ONE Stop: 05/16/25 02:46 Last Admin: 05/16/25 02:01 Dose: 500 mls/hr Documented By: EE Metoclopramide HCl (Metoclopramide Inj 5 Mg/Ml Vial 2 Ml) 5 mg IVP X1 ONE; Protocol Stop: 05/16/25 01:47 Last Admin: 05/16/25 01:59 Dose: 5 mg Documented By: EE Midazolam HCl (Midazolam Inj 1 Mg/Ml Vial 2 Ml) 2 mg IVP X1 ONE Stop: 05/16/25 01:46 Last Admin: 05/16/25 01:59 Dose: 2 mg Documented By: PRIYANKA See above if any Consultations Consultation(s) initiated? (list below): Yes Consultation #1 (Physician, Specialty, Details): Tellineurologist made aware of the patient?s HPI, PMHx, lab and/or radiology results. Discussed treatment plan. Will consult an admission to the hospitalist. Time: 02:50 Consultation #2 (Physician, Specialty, Details): Discussed with resident physician for admission. Reviewed the patient?s HPI, PMHx, lab and/or radiology results. Discussed treatment plan. Will consult an admission to the hospitalist. Time: 02:54 Consultation #3 (Physician, Specialty, Details): Tellineurologist made aware of the patient?s HPI, PMHx, lab and latest radiology results. Discussed treatment plan. Suggests transfer for possible clot retrieval. Time: 03:35 Diagnosis Dizziness Differential Diagnosis: adverse reaction to drug, benign paroxysmal positional vertigo, orthostatic hypotension, vertebral basilar insufficiency, cerebrovascular accident, acute vestibular neuronitis and transient cerebral ischemia Most likely diagnosis given after review of the tests above:: Acute posterior circulation CVA Admission Indicated Admission indicated?: not indicated Explain why admission is indicated or not indicated:: Acute posterior circulation CVA Admission Request Was there a request for admission?: Yes Admission Attestation Admission request attestation: Discussed case with [] from Hospitalist service regarding admission. Discussed patients ED course, exam findings, labs, and radiology results. The Hospitalist [agrees,declines] to accept the patient for admission. Disposition Plan Disposition Plan: Admit Discharge Plan Plan Patient Disposition: Admit Acute Care w/in Hospital Prescriptions/Referrals Prescriptions/Med Rec: No Action acetaminophen 500 mg Tablet 500 mg PO Q6H PRN (Reason: Pain) pregabalin 300 mg capsule 300 mg PO BID Patient Comments: TAKE 1 CAPSULE BY MOUTH TWICE A DAY hydrocodone-acetaminophen 5-325 mg tablet 1 tab PO Q12H PRN (Reason: pain) Patient Comments: TAKE 1 TABLET BY MOUTH TWICE A DAY NEEDED FOR PAIN amlodipine 5 mg tablet 5 mg PO QDAY Patient Comments: TAKE 1 TABLET BY MOUTH EVERY DAY aspirin 81 mg capsule 81 mg PO QDAY Qty: 30 2RF atorvastatin [Lipitor] 40 mg tablet 40 mg PO HS Qty: 30 1RF meclizine 25 mg tablet 25 mg PO QDAY PRN (Reason: dizziness or vertigo) Qty: 30 1RF Referrals: Andre Myles [Primary Care Provider] - In 1 week Problem List Clinical Impression: Acute ischemic multifocal posterior circulation stroke Patient/Caregiver Discharge Instructions Print Language: Kuwaiti Stand Alone Forms: Hayde Award Info., Patient Portal Info Letter
--- NOTE | 2025-05-16 01:20 | EKG_ITS ---
[facility] Test Date: 2025-05-16 Pat Name: ANATOLIY PLUNKETT Department: Room: - Gender: Male Last Inserter: : 1945 Requested By: Ramakrishna Trujillo Order Number: [id number] Reading MD: Ramakrishna Trujillo Measurements Intervals [place] Rate: 64 P: 69 UT: 182 QRS: -11 QRSD: 87 T: 9 QT: 434 QTc: 450 Interpretive Statements SINUS RHYTHM ANTEROSEPTAL MYOCARDIAL INFARCTION , OF INDETERMINATE AGE [40+ ms Q WAVE IN V1-V4] Compared to ECG 01/18/2025 01:31:41 Myocardial infarct finding now present Left anterior fascicular block no longer present /store/S0/[id number]/[id number].pdf
[2025-05-16] MEDS: METOCLOPRAMIDE INJ 5 MG/ML VIAL 2 ML IVP (01:59)
[2025-05-16] MEDS: MIDAZOLAM INJ 1 MG/ML VIAL 2 ML 2 MG IVP (01:59)
[2025-05-16] MEDS: SODIUM CHLORIDE 0.9% 500 ML 500 ML IV (02:01)
--- NOTE | 2025-05-16 02:03 | XR_ITS ---
EXAMINATION: AP chest single view TECHNIQUE: AP portable upright chest single view Date and time: May 16, 2025, 0304 hours, comparison March 31, 2025 INDICATIONS: Stroke alert, altered mental status today. FINDINGS: Mild prominence left ventricle Suspicious for mild pneumonia at the lung bases Mild vascular congestion Prominent osteopenia IMPRESSION: Suspicious for mild pneumonia at the lung bases
--- NOTE | 2025-05-16 02:09 | XR_ITS ---
Examination: CTA carotids with intravenous contrast CTA brain, head with intravenous contrast. 2-D sagittal, coronal reconstructions. 3-D reconstructions. Exam date and time: May 16, 2025, 0222 hours INDICATIONS: Stroke alert, onset focal neurologic deficit today including vertigo and altered mental status CTDI: vol (mGy) 11.9 DLP: (mGycm) 468 Technique: Multiple CTA axial brain, head carotid images post intravenous contrast injection 75 cc, [id number]. 2-D sagittal, coronal reconstructions. 3-D reconstructions, 3-D post processing including vascular maximum intensity projection images. Low dose protocols were performed. One or more of the following dose reduction techniques were used; automated exposure control, adjustment of the mA and/or KV according to patient size, use of iterative reconstruction technique. Findings: Heavy calcification left carotid bifurcation, 70% stenosis left carotid bifurcation, 50% stenosis origin left internal carotid artery No significant right common carotid carotid bifurcation or internal carotid artery stenoses Dominant left vertebral artery Very atretic distal right vertebral artery Very atretic intracranial distal right vertebral artery Basilar artery is attenuated but does fill as well as posterior cerebral branches no large vessel occlusions 70% stenosis M1 segment right middle cerebral artery There is reduced filling of right middle cerebral artery trifurcation vessels Anterior cerebral arteries fill IMPRESSION: 70% stenosis left carotid bifurcation 50% stenosis origin left internal carotid artery Significantly atretic distal right vertebral artery 70% stenosis M1 segment right middle cerebral artery Reduced filling of the right middle cerebral artery trifurcation vessels
--- NOTE | 2025-05-16 02:09 | XR_ITS ---
Examination: CT brain head without contrast. 2-D sagittal coronal reconstructions Date and time of exam: May 16, 2025, 0218 hours INDICATIONS: Onset dizziness, vertigo, altered mental status today CTDI: vol (mGy): 49.8 DLP: (mGycm): 985 Technique: Multiple CT axial sections of the brain have been obtained, 5 mm slice thickness. Contrast has not been administered. 2-D sagittal, coronal reconstructions have been obtained Low dose protocols were performed. One or more of the following dose reduction techniques were used; automated exposure control, adjustment of the mA and/or KV according to patient size, use of iterative reconstruction technique. Findings: No significant ventricular enlargement. Intra-axial or extra-axial hemorrhage density is not seen. No mass effect or midline shift Basal cisterns are not remarkable. Fourth ventricle is midline. Cranial vault intact. Impression: Negative for acute hemorrhage, mass effect or midline shift Advise clinical correlation and follow-up accordingly
[2025-05-16 02:18] LABS: Collection Type, Urine Clean Catch
[2025-05-16 02:26] LABS: Basophils # (Auto) 0.1 Thou/mm3 (0.0-0.2); Basophils % (Auto) 1 % (0-2.5); Eosinophils # (Auto) 0.3 Thou/mm3 (0.0-0.5); Eosinophils % (Auto) 3 % (0-10); Hematocrit 40.3 % (41.0-53.0); Hemoglobin 14.0 g/dL (13.5-16.0); Immature Granulocytes Auto 0.01 Thou/mm3 (0.00-0.00); Lymphocytes # (Auto) 3.3 Thou/mm3 (1.0-4.8); Lymphocytes % (Auto) 40 % (10-50); Mean Corpuscular HGB Conc 34.7 g/dl (31.0-37.0); Mean Corpuscular Hemoglobin 32.9 pg (25.0-35.0); Mean Corpuscular Volume 95 fL (80-100); Monocytes # (Auto) 0.8 Thou/mm3 (0.0-0.8); Monocytes % (Auto) 10 % (0-12); Neutrophils # (Auto) 3.8 Thou/mm3 (1.8-7.7); Neutrophils % (Auto) 46 % (37-80); Nucleated Red Blood Cell # 0.00 Thou/mm3 (0.00-0.00); Nucleated Red Blood Cell % 0 /100 WBC (0); Platelet Count 147 Thou/mm3 (140-440); RDW Standard Deviation 44.5 fL (35.1-43.9); Red Blood Count 4.26 Miln/mm3 (4.50-5.90); White Blood Count 8.2 Thou/mm3 (3.8-10.6)
--- NOTE | 2025-05-16 02:30 | PC.NURSE ---
DR MASON FROM [employer] ON ASSESSING TO PT.
[2025-05-16 02:38] LABS: Amphetamine/Methamp Scrn,U Negative (Negative); Barbiturate Screen,Urine Negative (Negative); Benzodiazepines Screen,Urine Negative (Negative); Benzoylecgonine Screen, Ur Negative (Negative); Fentanyl Screen,Urine Negative (Negative); Opiate Screen,Urine Negative (Negative); THC Screen,Urine Negative (Negative)
--- NOTE | 2025-05-16 02:41 | PRELIM_ITS ---
CT scan of the head without intravenous contrast (axial sections with sagittal and coronal reformats) May 16, 2025 0218 hours Clinical History: Focal neuro deficit, stroke suspected Comparison: None available at the time of this report. Findings: There is no evidence of intracranial hemorrhage, mass effect or midline shift. There is mild volume loss. The calvarium is unremarkable. The mastoid air cells and the visualized paranasal sinuses are clear. Impression: No evidence of intracranial hemorrhage, mass effect or midline shift. Mild volume loss. Aspect score 10. Discussion Details: Results verbally communicated to : Dr. Bear at 02:36 AM 05/16/2025 Report Electronically Signed By: Bennie Mock 05/16/2025 2:40:43 AM [EST]
[2025-05-16 02:43] LABS: INR 1.1 (0.9-1.3); Partial Thromboplastin Time 24.8 Seconds (22.0-36.0); Prothrombin Time 12.1 Seconds (9.0-12.2)
[2025-05-16 02:48] LABS: Alanine Aminotransferase 50 U/L (10-49); Albumin, Serum 4.3 gm/dL (3.4-4.8); Albumin/Globulin Ratio 1.5 (1.2-2.2); Alkaline Phosphatase 133 U/L (46-116); Anion Gap 15 (7-16); Aspartate Amino Transferase 61 U/L (0-34); BUN/Creatinine Ratio 16 Ratio (12-20); Bilirubin,Total 0.5 mg/dL (0.3-1.2); Blood Urea Nitrogen 11 mg/dL (9-23); Calcium 9.0 mg/dL (8.3-10.6); Calcium (Corrected) 9.0 mg/dL (8.5-10.1); Carbon Dioxide 23.2 mMol/L (20.0-31.0); Chloride 107 mMol/L (98-107); Creatinine (Component) 0.7 mg/dL (0.6-1.3); Estimated Creatinine Clearance 85.5 mL/min (>60); Globulin 2.9 gm/dL (2.3-3.5); Glucose 128 mg/dL (74-106); Magnesium 2.0 mg/dL (1.6-2.6); Osmolality,Calculated 290 (275-295); Potassium 3.5 mMol/L (3.4-5.1); Sodium 145 mMol/L (136-145); Total Protein 7.2 gm/dL (5.7-8.2); Troponin I < 0.002 ng/mL (0.0-0.045); eGFR > 60 See Note
--- NOTE | 2025-05-16 02:57 | ESCONSULT_ITS ---
Tele Neuro Consultation Consultation Date 05/16/25 Most Recent Vital Signs Last Vital Signs Temp 97.7 F 05/16/25 01:04 Pulse 72 05/16/25 02:32 Resp 18 05/16/25 02:32 BP 128/52 L 05/16/25 02:32 Pulse Ox 94 L 05/16/25 02:32 O2 Del Method Room Air 05/16/25 02:32 Laboratory-Coagulation Panel PT 12.1 Seconds (9.0-12.2) 05/16/25 02:10 INR 1.1 (0.9-1.3) 05/16/25 02:10 APTT 24.8 Seconds (22.0-36.0) 05/16/25 02:10 Consultation Narrative [facility] Tele[facility]urology Consult [facility] Patient Name:???tasha love Date of :???1945 Identification Number:??? Date of Service:???05/16/2025 02:04:23 Diagnosis:?R42 - Dizziness/ Vertigo/ Giddiness Impression: ?Mr. 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 TNK was not given as he has no focal disabling symptoms. Our recommendations are outlined below. Recommendations: ? Stroke/Telemetry Floor ? Neuro Checks ? Bedside Swallow Eval ? DVT Prophylaxis ? IV Fluids, Normal Saline ? Head of Bed 30 Degrees ? Euglycemia and Avoid Hyperthermia (PRN Acetaminophen) ? Initiate dual antiplatelet therapy with Aspirin 81 mg daily and Clopidogrel 75 mg daily. ? Antihypertensives PRN if Blood pressure is greater than 220/120 or there is a concern for End organ damage/contraindications for permissive HTN. If blood pressure is greater than 220/120 give labetalol PO or IV or Vasotec IV with a goal of 15% reduction in BP during the first 24 hours. ?- MRI Brain without contrast ?- TTE ?- Labs: lipid panel; HgbA1c ?- PT/OT/ST where applicable Sign Out: ? Discussed with Emergency Department Provider Advanced Imaging: CTA Head and Neck Completed. LVO:No Patient is not a candidate for TONA Metrics: Last Known Well: 05/16/2025 22:00:00 Arrival Time: 05/16/2025 01:15:00 Activation Time: 05/16/2025 02:04:23 Initial Response Time: 05/16/2025 02:08:20Symptoms: Dizziness. Initial patient interaction: 05/16/2025 02:24:30 NIHSS Assessment Completed: 05/16/2025 02:32:21Patient is not a candidate for Thrombolytic. Thrombolytic Medical Decision: 05/16/2025 02:32:24Patient was not deemed candidate for Thrombolytic because of following reasons: Stroke severity too mild (non-disabling) . CT Head: I personally reviewed all the CT images that were available to me and it showed: no intracerebral hemorrhage Primary Provider Notified of Diagnostic Impression and Management Plan on: 05/16/2025 02:50:17 History of Present Illness:Patient is a 79 year old Male. Patient was brought by private transportation with symptoms of Dizziness. Mr. Love is a 79 year-old man with a PMH of HTN, Chronic Back/Hip Pain, Hip Replacements, Herpes Zoster Neuralgia, TIA who presents with dizziness. He states that he suddenly started to feel lightheaded. He took the dizziness medication he was given and drank some orange juice. He reports that he went to the bathroom and as he was getting up he got dizzy. He describes the dizziness as the sensation of things spinning. He reports that this is similar to when he was admitted for a stroke in 03/2025. He denies any current hearing loss, ringing in the ears, or recent ear infections. He denies that his symptoms are aggravated by head movements. Mr. Love does report some improvement in his symptoms. Of note, review of the records reveals that CTA from 03/2025 showed stenosis. Past Medical History: ?Hypertension ?There is no history of Diabetes Mellitus ?There is no history of Atrial Fibrillation ?There is no history of Stroke ?There is no history of Seizures ?There is no history of Dementia/MCI Medications: No Anticoagulant use? Antiplatelet use:?Yes?ASA Reviewed EMR for current medications Allergies:? Reviewed Social History: Smoking: No Alcohol Use: No Drug Use: No Family History: There is no family history of premature cerebrovascular disease pertinent to this consultation ROS : 14 Points Review of Systems was performed and was negative except mentioned in HPI. Past Surgical History: There Is No Surgical History Contributory To Today?s Visit Examination: BP(126/52),?Pulse(72), 1A: Level of Consciousness - Alert; keenly responsive?+ 0 1B: Ask Month and Age - Both Questions Right?+ 0 1C: Blink Eyes & Squeeze Hands - Performs Both Tasks?+ 0 2: Test Horizontal Extraocular Movements - Normal?+ 0 3: Test Visual Coles - No Visual Loss?+ 0 4: Test Facial Palsy (Use Grimace if Obtunded) - Normal symmetry?+ 0 5A: Test Left Arm Motor Drift - No Drift for 10 Seconds?+ 0 5B: Test Right Arm Motor Drift - No Drift for 10 Seconds?+ 0 6A: Test Left Leg Motor Drift - No Drift for 5 Seconds?+ 0 6B: Test Right Leg Motor Drift - No Drift for 5 Seconds?+ 0 7: Test Limb Ataxia (FNF/Heel-Meraz) - No Ataxia?+ 0 8: Test Sensation - Normal; No sensory loss?+ 0 9: Test Language/Aphasia - Normal; No aphasia?+ 0 10: Test Dysarthria - Normal?+ 0 11: Test Extinction/Inattention - No abnormality?+ 0 NIHSS Score:?0 NIHSS Free Text :?Nystagmus seen by ER Physician Pre-Morbid Modified [place] Scale: 1 Points = No significant disability despite symptoms; able to carry out all usual duties and activities Spoke with :?ER Physician (Dr. Bear) This consult was conducted in real time using interactive audio and video technology. Patient was informed of the technology being used for this visit and agreed to proceed. Patient located in hospital and provider located at home/office setting. Patient is being evaluated for possible acute neurologic impairment and high probability of imminent or life-threatening deterioration. I spent total of 45 minutes providing care to this patient, including time for face to face visit via telemedicine, review of medical records, imaging studies and discussion of findings with providers, the patient and/or family. Dr Driss Bridges [facility] For Inpatient follow-up with [facility] physician please call [facility] at . As we are not an outpatient service for any [facility] needs please contact the hospital for assistance. If you have any questions for the [facility] physicians or need to reconsult for clinical or diagnostic changes please contact us via [facility] at . Non-radiologist review of imaging performed to assist with emergent clinical decision-making. Remote physician workstations do not possess the same resolution, calibration, or diagnostic capabilities as hospital-based radiology reading stations, and formal radiologist read is necessary. Signature :Denny Bridges
[2025-05-16] MEDS: CLOPIDOGREL BISULFATE 75 MG TABLET 300 MG PO (03:07)
--- NOTE | 2025-05-16 03:31 | PRELIM_ITS ---
CT angiogram of the head and neck with intravenous contrast (axial sections with sagittal and coronal reformats) May 16, 2025 0222 hours Clinical History: Focal neuro deficit, stroke suspected. Comparison: CT of May 16, 2025. 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 The bilateral internal carotid, left middle and bilateral anterior cerebral arteries are patent bilaterally. The intracranial vertebral arteries are patent. The vertebrobasilar junction, basilar and posterior cerebral arteries are patent. No evidence of critical stenosis or aneurysm. Neck: The aortic arch to the extent visualized as well as the origins of the right brachiocephalic, left common carotid, and left subclavian arteries are patent. The common carotid arteries, carotid bulbs, and internal and external carotid arteries are patent. The origins of the vertebral arteries are unremarkable. The left vertebral artery is dominant. Near occlusion of the distal right vertebral artery. The soft tissues of the neck are unremarkable. Degenerative changes of the imaged portions of the spine. Chronic multilevel disc disease. No acute fractures. Coronary arteries calcifications. 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 Correlation with MRI is recommended. Neck: Near occlusion of the distal right vertebral artery. Discussion Details: Results verbally communicated to : Dr. Bear at 03:23 AM 05/16/2025 Report Electronically Signed By: Bennie Mock 05/16/2025 3:30:34 AM [EST]
[2025-05-16 03:37] LABS: Bacteria,Urine Rare; Bilirubin,Urine Negative (Negative); Blood,Urine Negative (Negative); Clarity,Urine Clear (Clear/Hazy); Color,Urine Colorless (Lt Yel-Yel); Culture Indicated,Urine Not Indicated; Glucose, Urine Negative (Negative); Ketones,Urine Negative (Negative); Leukocyte Esterase,Urine Negative (Negative); Nitrite,Urine Negative (Negative); PH,Urine 7.0 (5.0-7.0); Protein,Urine Negative (Neg - Trace); RBC,Urine 4 /hpf (0-3); Specific Gravity,Urine 1.012 (1.001-1.035); Squamous Epithelial Cell,Urine < 1 /hpf (0-5); Urobilinogen,Urine Negative mg/dL (0.0-1.0); WBC,Urine 1 /hpf (0-5)
--- NOTE | 2025-05-16 04:13 | PC.NURSE ---
Per [facility] no need for transfer they recommend clinical management in house MD Bear speaking to admitting Team for in house admission
--- NOTE | 2025-05-16 05:11 | ECHO_ITS ---
Patient Info Name: Main Love Age: 79 years : 1945 Gender: Male Ht: 160 cm Wt: 88 kg BSA: 2.02 m2 BP: 138 / 68 mmHg HR: 61 bpm Exam Date: 05/16/2025 9:49 AM Admit Date: 05/16/2025 Site: [facility] Room Number: ER Patient Status: I Technical Quality: Fair Exam Type: CA echo doppler complete Program Research Specialist: Jackeline Jaffe Ordering Physician: Kendall Palacios Study Info Indications Stroke rule out - Primary Location: [facility] Left Ventricular Outflow Tract Name Value Normal LVOT 2D LVOT Diameter 2.1 cm LVOT Doppler LVOT Peak Velocity 89 cm/s LVOT Mean Gradient 2 mmHg LVOT VTI 25 cm LVOT VTI/AV VTI Ratio 0.7 LVOT Stroke Volume 87 ml Pulmonic Valve Name Value Normal PV Doppler PV Peak Velocity 91 cm/s Mitral Valve Name Value Normal MV Doppler MV Mean Gradient 3 mmHg MV Decel Centre 222 cm/s2 MV PHT 60 ms MV Area (PHT) 3.6 cm2 4.0-5.0 MV Area (Cont Eq VTI) 2.1 cm2 MV Diastolic Function MV E Peak Velocity 46 cm/s MV A Peak Velocity 105 cm/s MV E/A 0.4 MV Annular TDI MV Septal e' Velocity 5.2 cm/s MV E/e' (Septal) 8.8 MV Lateral e' Velocity 5.3 cm/s MV E/e' (Lateral) 8.6 MV e' Average 5.28 cm/s MV E/e' (Average) 8.7 Tricuspid Valve Name Value Normal Estimated PAP/RSVP RA Pressure 3 mmHg <=5 TV Annular TDI TV Lateral Madhavi s' Velocity 12.9 cm/s >=9.5 Aortic Valve Name Value Normal AV 2D/MM AV Cusp Sep (MM) 1.6 cm AV Doppler AV Peak Velocity 175 cm/s AV Mean Gradient 5 mmHg AV VTI 36 cm AV Area (Cont Eq VTI) 2.4 cm2 >=3.0 AV Area (Cont Eq Blaze) 1.8 cm2 AV DI (Blaze) 0.51 AV Regurgitation 2D LVOT Area 3.5 cm2 Ventricles Name Value Normal LV Dimensions 2D/MM LVOT Diameter 2.1 cm LV Fractional Shortening/Ejection Fraction 2D/MM LV Diastolic Volume (4C MOD) 91 ml LV Diastolic Length (4C) 6.8 cm RV Dimensions 2D/MM TV Lateral Madhavi s' Velocity 12.9 cm/s >=9.5 Atria Name Value Normal LA Dimensions LA Volume (4C A-L) 68 ml Left Ventricle Left ventricular chamber dimension is normal. Left ventricular systolic function is mildly reduced with visually estimated ejection fraction of 45-50%. There is normal geometry noted in the left ventricle. Left ventricular segmental wall motion is normal. There is indeterminate diastolic function in the left ventricle. Right Ventricle Right ventricular chamber dimension is mildly enlarged. Right ventricular systolic function is normal. Left Atrium Left atrial chamber dimension is normal. Right Atrium Right atrial chamber dimension is normal. Aortic Valve The aortic valve is trileaflet. There is mild aortic valve sclerosis. There is no aortic valve stenosis with a peak velocity of 175 cm/s, mean gradient of 5 mmHg, and aortic valve area of 2.4 cm2. There is no aortic valve regurgitation. Pulmonic Valve The pulmonic valve is normal. There is no pulmonic valve stenosis. There is no pulmonic regurgitation. Mitral Valve The mitral valve has normal leaflets. There is no mitral valve stenosis. There is trace mitral valve regurgitation. Tricuspid Valve The tricuspid valve leaflets are normal. There is no tricuspid valve stenosis. There is trace tricuspid valve regurgitation. Unable to estimate pulmonary artery systolic pressure due to inadequate tricuspid regurgitant envelope. Pericardium/Pleural The pericardium appears normal. There is no pericardial effusion. No pleural effusion visualized. Inferior Vena Cava Normal inferior vena cava with >50% collapse upon inspiration consistent with normal right atrial pressure, 3 mmHg. Aorta The aortic measurements are indexed to age and body surface area. The aortic root at the sinus of Valsalva is not well visualized. The prox ascending aorta is not well visualized. Summary 1. Left ventricle size is normal and systolic function is mildly reduced. Estimated ejection fraction is 45-50%. There is indeterminate diastolic function. 2. Right ventricle chamber size is mildly enlarged and systolic function is normal. 3. Mild AV sclerosis without stenosis, mean gradient 5mmHg, Vmax 1.7m/s. Moderate MAC. Trace MR and mild TR. 4. Prior study from 04/01/2025, agitated saline contrast was performed, shows no evidence of intra-cardiac shunt. Report Signatures Finalized by Francis Barry on 05/16/2025 03:14 PM
--- NOTE | 2025-05-16 05:37 | ESHP_ITS ---
Documentation for date of: 05/16/25 [facility] History of Present Illness History of present illness: HPI: 79-year-old male past medical history of TIA, hypertension, herpes zoster neuralgia, hepatitis, arthritis, gout, vertigo, bilateral carotid stenosis, thrombocytopenia, who presented to the ED in the reconciliation accountant of 05/16/2025 with a chief complaint of dizziness, nausea, and vomiting. About 1 hour before presentation the patient endorsed a constant feeling of dizziness with associated nausea and 1 episode of vomiting on presentation. He took meclizine at home. He denied syncope or palpitations or shortness of breath. It was reported that the patient was initially hypertensive in the 190s systolic while being transferred by EMS. Stroke alert was initiated on arrival. Patient reportedly had rotary nystagmus but no focal neurological deficits. 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 The ED physician contacted neurointerventional radiology at [facility] who determined that due to the patient having an NIHSS stroke scale of 0 that admission and treatment with DAPT would be most appropriate for the patient as opposed to surgical intervention. Tele-neurology was consulted and concurred with treatment inpatient with DAPT. Patient was admitted for stroke rule out and treatment of occlusion of the M2 branch of the right MCA and distal right vertebral arteries. ED Course: * Significant vitals on arrival: BP 169/79, remainder of vitals within normal parameters * Significant labs: 1, ALT 50, alk phos 133, glucose 128 * Imaging: * EKG showed a sinus rhythm with a rate of 64 and QTc of 450. * Head CT showed no evidence of acute hemorrhage * CT angiogram of head and neck showed probable occlusion of an M2 branch of the right MCA, near occlusion of the distal right vertebral artery * Urine: 4 RBCs, rare bacteria * ED intervention: Patient received 2 mg IV push midazolam, 5 mg IV push of metoclopramide, half liter of normal saline, and a loading dose of clopidogrel 300 mg History: * Past medical history: As above in HPI * Surgical history: Hip replacement, bilateral shoulder surgeries unspecified * Social history: Denies alcohol tobacco or illicit drug use Allergies: * No known drug allergies. Home Medications: (Pending Med Rec) * Amlodipine 5 mg daily * Aspirin 81 mg daily * Atorvastatin 40 mg nightly * [place] every 12 hours as needed * Meclizine 25 mg daily as needed for dizziness * Pregabalin 300 mg p.o. twice daily * Entresto twice daily CODE STATUS: Full Code Review of Systems Review of Systems Narrative Review of Systems: Review of Systems: * General: Constant feeling of dizziness that started approximately 1 hour before presentation. Denies fevers, chills. * HEENT: Denies headache, congestion, or sore throat. * Cardiac: Denies chest pain or palpitations. * Pulmonary: Denies shortness of breath or cough. * GI: Admitted to nausea and 1 episode of vomiting. Denied diarrhea, constipation, melena, or hematochezia. * : Denies dysuria, hematuria, frequency, or urgency. * MSK: Denies pain in the extremities, joints, or myalgias. * Neuro: Denies weakness, numbness, vision changes, or speech difficulty. Exam Vital Signs Temp Pulse Resp BP Pulse Ox O2 Del Method 97.6 F 71 18 150/72 H 97 Room Air 05/16/25 04:12 05/16/25 04:12 05/16/25 04:12 05/16/25 04:12 05/16/25 04:12 05/16/25 04:12 Narrative Exam General: Awake and in no acute distress. Conversational and non-toxic appearing. Neurologic: GCS 15. Alert and oriented x3, no gross neurological deficit, and patient able to move all 4 extremities. HEENT: Rotary nystagmus on extraocular eye movement exam induced by rapid vertical eye movements. Normocephalic, atraumatic, mucous membranes moist. Heart: Regular rate and rhythm, normal S1 and S2, no murmurs. Lungs: Clear to auscultation bilaterally with no wheezing or crackles. Abdomen: Soft, nondistended, nontender, positive bowel sounds. No guarding or rebound tenderness. Extremities: No edema. 2+ radial and dorsalis pedis pulses bilaterally. Skin: Warm. Dry. No rash or ecchymoses. Results: Labs 05/18/25 04:58 05/18/25 04:58 Labs: Short CBC 05/16/25 Range/Units 02:10 WBC 8.2 (3.8-10.6) Thou/mm3 Hgb 14.0 (13.5-16.0) g/dL Hct 40.3 L (41.0-53.0) % Plt Count 147 (140-440) Thou/mm3 BMP 05/16/25 02:10 Sodium 145 Potassium 3.5 Chloride 107 Carbon Dioxide 23.2 BUN 11 Creatinine 0.7 Glucose 128 H Calcium 9.0 Cardiac Enzymes 05/16/25 Range/Units 02:10 Troponin I < 0.002 (0.0-0.045) ng/mL Liver Function 05/16/25 Range/Units 02:10 Total Bilirubin 0.5 (0.3-1.2) mg/dL AST 61 H (0-34) U/L ALT 50 H (10-49) U/L Alkaline Phosphatase 133 H (46-116) U/L Albumin 4.3 (3.4-4.8) gm/dL Urine 05/16/25 Range/Units 02:11 Urine Color Colorless A (Lt Yel-Yel) Urine Clarity Clear (Clear/Hazy) Urine pH 7.0 (5.0-7.0) Ur Specific [place] 1.012 (1.001-1.035) Urine Protein Negative (Neg - Trace) Urine Glucose (UA) Negative (Negative) Quality Measures Quality Measures stroke Suspected type of Stroke: Unknown at this time Last known well (date): 05/16/25 Last known well (time): 01:00 Tenecteplase given: Reason(s) Tenecteplase not given: Outside the time window not given Rehab services: PT evaluation ordered VTE Prophylaxis: mechanical Antithrombotic by day 2:: contraindicated (describe) (Patient is ambulatory) Statin ordered: >75 y/o moderate or high intensity dose Anticoagulation ordered for A-fib or flutter (current or hx): not indicated Advance care planning discussed with:: patient Medications Home Medications and Allergies Home Medications ?Medication ?Instructions ?Recorded ?Confirmed ?Type acetaminophen 500 mg tablet 500 mg PO Q6H PRN Pain 05/17/25 History amlodipine 5 mg tablet 5 mg PO QDAY 04/01/25 History dorzolamide 22.3 mg-timolol 6.8 1 drp Both eyes Q12H 1 05/17/25 History mg/mL eye drops latanoprost 0.005 % eye drops 1 drp Both eyes .qhs 05/17/25 History sacubitril 24 mg-valsartan 26 mg 1 tab PO BID 05/17/25 05/17/25 History tablet Allergies Allergy/AdvReac Type Severity Reaction Status Date / Time No Known Allergies Allergy Verified 01/18/25 00:34 Visit Medications Acetaminophen (Acetaminophen 325 Mg Tablet) 650 mg PO Q6H PRN PRN Reason: Fever >100.4 Stop: 06/15/25 05:07 Aspirin (Aspirin Ec 81 Mg Tabec) 81 mg PO DAILY ERNIE Stop: 06/15/25 08:59 Atorvastatin Calcium (Atorvastatin Calcium 10 Mg Tablet) 40 mg PO HS ERNIE Stop: 06/15/25 20:59 Clopidogrel Bisulfate (Clopidogrel Bisulfate 75 Mg Tablet) 75 mg PO DAILY ERNIE Stop: 06/15/25 08:59 Labetalol HCl (Labetalol Inj 5 Mg/Ml Vial 4 Ml) 10 mg IVP Q15M PRN PRN Reason: hypertension Ondansetron HCl (Ondansetron Inj 2 Mg/Ml Inj 2 Ml) 4 mg IVP Q4HR PRN PRN Reason: NAUSEA OR VOMITING Stop: 06/15/25 02:02 Discontinued Medications Clopidogrel Bisulfate (Clopidogrel Bisulfate 75 Mg Tablet) 300 mg PO X1 ONE Stop: 05/16/25 02:54 Last Admin: 05/16/25 03:07 Dose: 300 mg Sodium Chloride (Ns) 500 mls @ 500 mls/hr IV .Q1H ONE Stop: 05/16/25 02:46 Last Infusion: 05/16/25 04:33 Dose: Infused Metoclopramide HCl (Metoclopramide Inj 5 Mg/Ml Vial 2 Ml) 5 mg IVP X1 ONE; Protocol Stop: 05/16/25 01:47 Last Admin: 05/16/25 01:59 Dose: 5 mg Midazolam HCl (Midazolam Inj 1 Mg/Ml Vial 2 Ml) 2 mg IVP X1 ONE Stop: 05/16/25 01:46 Last Admin: 05/16/25 01:59 Dose: 2 mg Assessment & Plan Plan Summary: 79-year-old male past medical history of TIA, hypertension, herpes zoster neuralgia, hepatitis, arthritis, gout, vertigo, bilateral carotid stenosis, thrombocytopenia, who presented to the ED in the reconciliation accountant of 05/16/2025 with a chief complaint of dizziness, nausea, and vomiting. Stroke alert was initiated on arrival. 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 The ED physician contacted neurointerventional radiology at [facility] who determined that due to the patient having an NIHSS stroke scale of 0 that admission and treatment with DAPT would be most appropriate for the patient as opposed to surgical intervention. Tele-neurology was consulted and concurred with treatment inpatient with DAPT. Patient was admitted for stroke rule out and treatment of occlusion of the M2 branch of the right MCA and distal right vertebral arteries. #Stroke rule out #History of TIA * Patient was discharged from [facility] on 04/03/2025 with me and diagnosed with TIA, was discharged on aspirin only due to thrombocytopenia at the time * Patient presented to [facility] in the reconciliation accountant of 05/16/2025 with chief complaint of dizziness * NIHSS score 0, no focal neurological deficits on exam * Head CT negative Plan: * Aspirin 81 mg p.o. daily * Clopidogrel loading dose 300 mg * Clopidogrel 75 mg daily * Atorvastatin 40 mg p.o. 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 * Patient presented to the ED approximately 1 hour after sustained dizziness * Patient had rotary nystagmus on exam * CT angiogram of head and neck showed probable occlusion of an M2 branch of the right MCA, near occlusion of the distal right vertebral artery * ED physician contacted neurointerventional radiology at [facility] who recommended against surgical intervention given NIHSS score of 0 with no debilitating neurological deficits, teleneurology was consulted and recommended DAPT therapy Plan: * Dual antiplatelet therapy with aspirin and clopidogrel as above #Hypertension stage II * Per patient history * Patient presented with stage II hypertension 169/79 * Patient takes amlodipine 5 mg daily Plan: * Allowing for permissive hypertension in the setting of stroke rule out #History of vertigo * Per patient history * Patient had rotary nystagmus on exam, may reinforce central vertigo, may also be reinforced by MCA and vertebral artery occlusion * Patient described recent cold sores on the right side of his tongue, consider that this may be secondary to HSV and may contribute to vertigo via labyrinthitis versus vestibular neuritis, this may reinforce peripheral vertigo Plan: * Resumed home meclizine 25 mg p.o. daily as needed Hospital Maintenance: DVT ppx: Patient is ambulatory Diet: Pending nurse swallow screen IV lines: Peripheral IVs Code status: Full code Dispo: Telemetry monitoring floor, neurochecks Q4, brain MRI pending, DAPT for MCA and vertebral artery occlusions. Patient was seen and discussed with my attending physician Dr. Leif GARCIA. Kendall Palacios DO PGY-1. Attending Provider Attestation/Addendum Patient seen and examined at bedside with resident. Agree with assessment and plan as documented above. 79M who presented with recurrent dizziness and lightheadedness. Was here in march with similar symptoms and diagnosed with TIA. This time around, repeat imaging shows new occlusions of M2 of MCA and vertebral artery. Seen by teleneuro. Given that NIHSS score of 0 at the time of their eval, and symptoms did not correlate with imaging findings, recommended to forego TPA. Attempted to transfer but denied by vascular as did not think patient required intervention, instead recommended DAPT therapy and additional workup and managment with neurology. Patient currently stable and asymptomatic. Jeff Yadav MD
--- NOTE | 2025-05-16 07:54 | PC.SS ---
Patient Main Love is a 79 Year old male admitted for Stroke Rule out. SS met with patient with patient at bedside to discuss discharge plan and verify demographic information. Patient's at bedside as well, she reports patient lives at home with her. Patient's , Bing Love is surrogate decision maker, [phone]. Home: [phone]. Patient reports he utilizes a cane as needed and is able to complete all ADL's independently. Patient reports PCP is Andre Myles. and Cartoon Artist is Reed. [facility] At time of discharge patient reports he would like to return back home. Family will provide transportation. Discharge plan: Home Next of kin: , Bing Love PCP: Andre Myles
--- NOTE | 2025-05-16 08:43 | PC.NURSE ---
Pt to MRI at this time
--- NOTE | 2025-05-16 09:11 | PC.NURSE ---
pt remains in MRI at this time
[2025-05-16] MEDS: MECLIZINE HCL 25 MG TABLET PO (09:37)
[2025-05-16] MEDS: CLOPIDOGREL BISULFATE 75 MG TABLET PO (09:37)
[2025-05-16] MEDS: ASPIRIN EC 81 MG TABEC PO (09:37)
--- NOTE | 2025-05-16 10:29 | PC.NURSE ---
admit provider at bedside
--- NOTE | 2025-05-16 13:34 | PCS.ST ---
Swallow Evaluation completed. See report for details. No dysphagia. Regular diet ok.
--- NOTE | 2025-05-16 14:12 | ESPR_ITS ---
<Statement entered by Lawson Vázquez MD - 05/27/25 07:44> I reviewed above note and agree with findings and plans. I have also personally examined the patient with medicine team and went over assessment and plan with medical team including international relations teacher and resident physician. Documentation for date of: 05/16/25 --------- Overnight admission. Patient is a [id number]-year-old male with a past medical history of hypertension, hyperlipidemia, history of TIA and history of zoster neuralgia, history of hepatitis, history of gout, history of bilateral carotid stenosis who presented to with a chief complaint of dizziness. Patient examined in the ER denied motor loss, blurry vision, headache, improved dizziness. Concerns are CVA, stroke alert called from the ER, NIHSS asked score of 0. Teleneuro consulted. No TNK given continue medical management with aspirin 81 and clopidogrel 75 milligrams. Permissive hypertension for greater than 220/120 or endorgan damage. Resume antihypertensive medication on 03/17/2020 5 AM. Pending recommendations from neurology. MRI head negative for ischemic or hemorrhagic stroke likely TIA. Pending Neuro recommendation. Senior Resident Attestation: I have discussed the case with supervising physician and international relations teacher physician involved in the care of patient. I personally saw and examined patient and discussed the assessment and plan with the entire medical team, including attending. I agree with assessment and plan as documented below. - The patient's plan was discussed with attending Dr. Kathie Nixon MD PGY2 Internal Medicine Subjective Subjective Interval history: Patient was seen and examined at bedside. No acute events took place overnight. Patient explains that yesterday while seated and watching TV, patient develops dizziness with room and the TV spinning in air. He stood up and felt weak at his knees. The dizziness went on and given that patient had similar symptoms previously for which he had been given the diagnosis of TIA and started on medication, sought ED help. At the time of this interview, patient's dizziness and weakness have fully resolved. Exam Vital Signs Temp Pulse Resp BP Pulse Ox O2 Del Method 97.7 F 54 L 18 132/66 H 97 Room Air 05/16/25 11:00 05/16/25 13:00 05/16/25 13:00 05/16/25 13:00 05/16/25 13:00 05/16/25 09:52 Narrative Exam General: Awake and in no acute distress. Conversational and non-toxic appearing. Neurologic: GCS 15. Alert and oriented x3, no gross neurological deficit, and patient able to move all 4 extremities. HEENT: Head impulse test positive with catch-up saccade. Present bidirectional nystagmus with sideway look. Negative test of skew. Negative [place]-Hallpike maneuver Normocephalic, atraumatic, mucous membranes moist. Heart: Regular rate and rhythm, normal S1 and S2, no murmurs. Lungs: Clear to auscultation bilaterally with no wheezing or crackles. Abdomen: Soft, nondistended, nontender, positive bowel sounds. No guarding or rebound tenderness. Extremities: No edema. 2+ radial and dorsalis pedis pulses bilaterally. Skin: Warm. Dry. No rash or ecchymoses. Objective Labs 05/16/25 02:10 05/16/25 02:10 Labs: Laboratory Results - last 24 hr 05/16/25 05/16/25 02:10 02:11 WBC 8.2 RBC 4.26 L Hgb 14.0 Hct 40.3 L MCV 95 MCH 32.9 MCHC 34.7 RDW Std Deviation 44.5 H Plt Count 147 Neut % (Auto) 46 Lymph % (Auto) 40 [place] % (Auto) 10 Eos % (Auto) 3 Baso % (Auto) 1 Neut # (Auto) 3.8 Lymph # (Auto) 3.3 [place] # (Auto) 0.8 Eos # (Auto) 0.3 Baso # (Auto) 0.1 Immature Gran # (Auto) 0.01 H Absolute Nucleated RBC 0.00 Immature Gran % 0 Nucleated RBC % 0 PT 12.1 INR 1.1 APTT 24.8 Sodium 145 Potassium 3.5 Chloride 107 Carbon Dioxide 23.2 Anion Gap 15 BUN 11 Creatinine 0.7 Estim Creat Clear Calc 85.5 eGFR > 60 BUN/Creatinine Ratio 16 Glucose 128 H Calculated Osmolality 290 Calcium 9.0 Corrected Calcium 9.0 Magnesium 2.0 Total Bilirubin 0.5 AST 61 H ALT 50 H Alkaline Phosphatase 133 H Troponin I < 0.002 Total Protein 7.2 Albumin 4.3 Globulin 2.9 Albumin/Globulin Ratio 1.5 Ur Collection Type Clean Catch Urine Color Colorless A Urine Clarity Clear Urine pH 7.0 Ur Specific [place] 1.012 Urine Protein Negative Urine Glucose (UA) Negative Urine Ketones Negative Urine Blood Negative Urine Nitrite Negative Urine Bilirubin Negative Urine Urobilinogen (Auto) Negative Ur Leukocyte Esterase Negative Urine RBC 4 H Urine WBC 1 Ur Squamous Epith Cells < 1 Urine Bacteria Rare Ur Culture Indicated? Not Indicated Urine Opiates Screen Negative Urine Fentanyl Screen Negative Ur Barbiturates Screen Negative U Amphetamin/Meth Scrn Negative U Benzodiazepines Scrn Negative U Cocaine Metab Screen Negative U Marijuana (THC) Screen Negative Quality Measures Quality Measures stroke Suspected type of Stroke: Unknown at this time Last known well (date): 05/16/25 Last known well (time): 01:00 Tenecteplase given: Reason(s) Tenecteplase not given: Outside the time window not given Rehab services: PT evaluation ordered VTE Prophylaxis: pharmaceutical Antithrombotic by day 2:: ordered Statin ordered: >75 y/o moderate or high intensity dose Anticoagulation ordered for A-fib or flutter (current or hx): not indicated Advance care planning discussed with:: patient Assessment & Plan Assessment Current Active Medications: Generic Name Dose Route Start Last Admin Trade Name Freq PRN Reason Stop Dose Admin Acetaminophen 650 mg 05/16/25 05:08 Acetaminophen 325 Mg Tablet PO 06/15/25 05:07 Q6H PRN Fever >100.4 Aspirin 81 mg 05/16/25 09:00 05/16/25 09:37 Aspirin Ec 81 Mg Tabec PO 06/15/25 08:59 81 mg DAILY ERNIE Administration Atorvastatin Calcium 40 mg 05/16/25 21:00 Atorvastatin Calcium 10 Mg Tablet PO 06/15/25 20:59 HS ERNIE Clopidogrel Bisulfate 75 mg 05/16/25 09:00 05/16/25 09:37 Clopidogrel Bisulfate 75 Mg Tablet PO 06/15/25 08:59 75 mg DAILY ERNIE Administration Labetalol HCl 10 mg 05/16/25 10:54 Labetalol Inj 5 Mg/Ml Vial 4 Ml IVP Q15M PRN hypertension SBP >220 Meclizine HCl 25 mg 05/16/25 09:00 05/16/25 09:37 Meclizine Hcl 25 Mg Tablet PO 06/15/25 08:59 25 mg DAILY ERNIE Administration Ondansetron HCl 4 mg 05/16/25 02:03 Ondansetron Inj 2 Mg/Ml Inj 2 Ml IVP 06/15/25 02:02 Q4HR PRN NAUSEA OR VOMITING Plan Summary: 79-year-old male past medical history of TIA, hypertension, herpes zoster neuralgia, hepatitis, arthritis, gout, vertigo, bilateral carotid stenosis, thrombocytopenia, who presented to the ED in the machine hamper maker of 05/16/2025 with a chief complaint of dizziness, nausea, and vomiting. Stroke alert was initiated on arrival. 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 The ED physician contacted neurointerventional radiology at [facility] who determined that due to the patient having an NIHSS stroke scale of 0 that admission and treatment with DAPT would be most appropriate for the patient as opposed to surgical intervention. Tele-neurology was consulted and concurred with treatment inpatient with DAPT. Patient was admitted for stroke rule out and treatment of occlusion of the M2 branch of the right MCA and distal right vertebral arteries. #TIA * Patient was discharged from [facility] on 04/03/2025 and diagnosed with TIA, was discharged on aspirin only due to thrombocytopenia at the time * Patient presented to [facility] in the machine hamper maker of 05/16/2025 with chief complaint of dizziness * NIHSS score 0, no focal neurological deficits on exam * Head CT negative * Prior Echo study from 04/01/2025, agitated saline contrast was performed, shows no evidence of intra-cardiac shunt. Plan: * Aspirin 81 mg p.o. daily * Clopidogrel loading dose 300 mg * Clopidogrel 75 mg daily * Atorvastatin 40 mg p.o. at bedtime * Neuro Checks Q4 hours * Bedside Swallow Eval * Head of Bed 30 Degrees * Lipid panel completed on 04/01/2025, consider repeating * Echo ordered * Neurology consulted * Physical therapy ordered #Right MCA M1 branch 70% stenosis #Distal right vertebral artery near occlusion #left carotid bifurcation, 70% stenosis * Patient presented to the ED approximately 1 hour after sustained dizziness * Patient had rotary nystagmus on exam * CT angiogram of head and neck showed probable occlusion of an M2 branch of the right MCA, near occlusion of the distal right vertebral artery * ED physician contacted neurointerventional radiology at [facility] who recommended against surgical intervention given NIHSS score of 0 with no debilitating neurological deficits, teleneurology was consulted and recommended DAPT therapy * MRI of the brain wo con The lateral ventricles are normal in size and contour. There is no midline shift, intracranial bleed, mass, cortical edema or focus of restricted diffusion. MRA showed No acute diagnostic abnormality. The right vertebral artery is thready and is not seen to join with the left vertebral artery to form the basilar artery. Minimally visualized origin of the left superior cerebellar artery. * CTA head/neck showed 70% stenosis left carotid bifurcation, 50% stenosis origin left internal carotid artery. Significantly atretic distal right vertebral artery. 70% stenosis M1 segment right middle cerebral artery. 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 Left ventricle size is normal and systolic function is mildly reduced. Estimated ejection fraction is 45-50%. There is indeterminate diastolic function. 2. Right ventricle chamber size is mildly enlarged and systolic function is normal. 3. Mild AV sclerosis without stenosis, mean gradient 5mmHg, Vmax 1.7m/s. Moderate MAC. Trace MR and mild TR. Plan: * Allowing for permissive hypertension in the setting of stroke rule out * Cardiology, Rachele Barry and Ruth Ann consulted, appreciate recommendations. #History of vertigo * Per patient history * Patient had rotary nystagmus on exam, may reinforce central vertigo, may also be reinforced by MCA and vertebral artery occlusion * Head impulse test positive with catch-up saccade. Present bidirectional nystagmus with sideway look. Negative test of skew. Negative [place]-Hallpike maneuver * Patient described recent cold sores on the right side of his tongue, consider that this may be secondary to HSV and may contribute to vertigo via labyrinthitis versus vestibular neuritis, this may reinforce peripheral vertigo Plan: * Resumed home meclizine 25 mg p.o. daily as needed Hospital Maintenance: DVT ppx: Patient is ambulatory Diet: Pending nurse swallow screen IV lines: Peripheral IVs Code status: Full code Dispo: Telemetry monitoring floor, neurochecks Q4, DAPT for MCA and vertebral artery occlusions. This case was discussed with my attending physician, Dr. Vázquez, and senior resident, Dr Nixon. Even though this this note was carefully revised there may still be minor errors in inventory control manager due to voice recognition software. Trixie Peguero, DO PGY I
--- NOTE | 2025-05-16 15:21 | PD.RESCONSUL ---
HPI Data of Consult Requesting Physician: Jeff Yadav MD Admitting Provider: Jeff Yadav MD Attending Provider: Jeff Yadav MD Primary Care Provider: Andre Myles Consult Narrative History of present illness: History of Present Illness: Mr. Main Love, with PMH of TIA, hypertension, herpes zoster neuralgia, hepatitis, arthritis, gout, vertigo, bilateral carotid stenosis, thrombocytopenia, glaucoma, and chronic back pain, presented to the ED on 05/16/2025 with worsening dizziness, nausea, and vomiting. Earlier this morning patient developed dizziness and took meclinzine. Shortly after, he got up to use the bathroom and sat down afterwhich he experienced sudden vertigo with nasea and vomiting. Based on chart review, he was hypertensive in 190s systolic blood pressure on arrival and at the time patient had rotary nystagmus but no focal neurological deficits. Patient was admitted and cardiology was consulted on 05/16/2025 for further management of stroke rule out and treatment of occlusion of the M1 branch of the right artery MCA and distal right vertebral arteries. ED course: Vitals: Temperature 97.7 F, IA 65, RR 17, BP 169/79, O2 sats 96% on room air. Labs: WBC 8.2, Hgb 14.0, PLT 147, potassium 3.5, creatinine 0.7, glucose 128, troponin <0.002. Urine toxicology was negative. Head CT (05/16/2025): Negative for acute hemorrhage, mass effect or midline shift CTA head/neck (05/16/2025): 70% stenosis left carotid bifurcation 50% stenosis origin left internal carotid artery, Significantly atretic distal right vertebral artery 70% stenosis M1 segment right middle cerebral artery, Reduced filling of the right middle cerebral artery trifurcation vessels In ED, patient received Plavix 300mg po x1, Metoclopramide IV 5mg po x1, Midazolam 2mg IV x1, Ondansetrol 4mg IV q4hr prn, IVF 500ml bolus x1 Medical history: As stated above Surgical history: Lower back surgery in 2004, B/L hip replacement in 2007% 2008, Shoulder surgery in 2009 and 2011, Hand surgery, Hammer toe surgery 2 yrs back Allergies: NKDA Medications: Amlodipine 5mg qd, Aspirin 81mg po qd, Atorvastatin 40mg po HS, Meclinizin 25mg po qd prn, Pregabalin 300mg po bid, Entreston 24-26 mg po bid, Dorzolamide HCl. Family history: Noncontributory Social history: Denies smoking cigarettes, drinking alcohol or using other illicit drugs cc:: cc: Jeff Yadav MD Review of Systems Review of Systems Narrative Review of Systems: All 12 systems assessed and the patient denies unless otherwise stated in HPI Exam Vital Signs Temp Pulse Resp BP Pulse Ox O2 Del Method 97.7 F 54 L 18 132/66 H 97 Room Air 05/16/25 11:00 05/16/25 13:00 05/16/25 13:00 05/16/25 13:00 05/16/25 13:00 05/16/25 09:52 Narrative Exam General: No acute distress, well nourished, AAO x3 Eye: PERRL, EOMI, normal conjunctiva, no scleral icterus HENT: Normocephalic, atraumatic, hearing intact to conversation at normal volume, moist oral mucosa Neck: Supple, non-tender, no JVD, no lymphadenopathy Lungs: Non-labored respirations, symmetric chest rise, Clear to auscultate bilaterally, No wheezing, rhonchi, crackles Heart: Peripheral pulses intact bilaterally, Regular Rate and Rhythm. Abdomen: Soft, non-tender, non-distended, no palpable masses Musculoskeletal: Normal range of motion and strength, No cyanosis or edema, No visible joint swelling Skin: Skin is warm, dry, no rashes or lesions. Psychiatric: Cooperative, appropriate mood and affect, Awake and alert, not agitated Neuro: Cranial nerves II-XII grossly intact. Strength 5/5 throughout. Sensations intact to light touch. Results Labs 05/16/25 02:10 05/16/25 02:10 Labs: Short CBC 05/16/25 Range/Units 02:10 WBC 8.2 (3.8-10.6) Thou/mm3 Hgb 14.0 (13.5-16.0) g/dL Hct 40.3 L (41.0-53.0) % Plt Count 147 (140-440) Thou/mm3 BMP 05/16/25 02:10 Sodium 145 Potassium 3.5 Chloride 107 Carbon Dioxide 23.2 BUN 11 Creatinine 0.7 Glucose 128 H Calcium 9.0 Cardiac Enzymes 05/16/25 Range/Units 02:10 Troponin I < 0.002 (0.0-0.045) ng/mL Liver Function 05/16/25 Range/Units 02:10 Total Bilirubin 0.5 (0.3-1.2) mg/dL AST 61 H (0-34) U/L ALT 50 H (10-49) U/L Alkaline Phosphatase 133 H (46-116) U/L Albumin 4.3 (3.4-4.8) gm/dL Urine 05/16/25 Range/Units 02:11 Urine Color Colorless A (Lt Yel-Yel) Urine Clarity Clear (Clear/Hazy) Urine pH 7.0 (5.0-7.0) Ur Specific [place] 1.012 (1.001-1.035) Urine Protein Negative (Neg - Trace) Urine Glucose (UA) Negative (Negative) Quality Measures Quality Measures stroke Suspected type of Stroke: Unknown at this time Last known well (date): 05/16/25 Last known well (time): 01:00 Tenecteplase given: Reason(s) Tenecteplase not given: Outside the time window not given Rehab services: PT evaluation ordered VTE Prophylaxis: not indicated Antithrombotic by day 2:: not indicated (describe) Statin ordered: >75 y/o moderate or high intensity dose Anticoagulation ordered for A-fib or flutter (current or hx): not indicated Advance care planning discussed with:: patient Medications Home Medications and Allergies Home Medications ?Medication ?Instructions ?Recorded ?Confirmed ?Type acetaminophen 500 mg tablet 500 mg PO Q6H PRN Pain 03/06/21 04/01/25 History amlodipine 5 mg tablet 5 mg PO QDAY 04/01/25 04/01/25 History hydrocodone 5 mg-acetaminophen 325 1 tab PO Q12H PRN pain 04/01/25 04/01/25 History mg tablet pregabalin 300 mg capsule 300 mg PO BID 04/01/25 04/01/25 History Allergies Allergy/AdvReac Type Severity Reaction Status Date / Time No Known Allergies Allergy Verified 01/18/25 00:34 Visit Medications Acetaminophen (Acetaminophen 325 Mg Tablet) 650 mg PO Q6H PRN PRN Reason: Fever >100.4 Stop: 06/15/25 05:07 Aspirin (Aspirin Ec 81 Mg Tabec) 81 mg PO DAILY ERNIE Stop: 06/15/25 08:59 Last Admin: 05/16/25 09:37 Dose: 81 mg Atorvastatin Calcium (Atorvastatin Calcium 10 Mg Tablet) 40 mg PO HS ERNIE Stop: 06/15/25 20:59 Clopidogrel Bisulfate (Clopidogrel Bisulfate 75 Mg Tablet) 75 mg PO DAILY ERNIE Stop: 06/15/25 08:59 Last Admin: 05/16/25 09:37 Dose: 75 mg Labetalol HCl (Labetalol Inj 5 Mg/Ml Vial 4 Ml) 10 mg IVP Q15M PRN PRN Reason: hypertension SBP >220 Meclizine HCl (Meclizine Hcl 25 Mg Tablet) 25 mg PO DAILY ERNIE Stop: 06/15/25 08:59 Last Admin: 05/16/25 09:37 Dose: 25 mg Ondansetron HCl (Ondansetron Inj 2 Mg/Ml Inj 2 Ml) 4 mg IVP Q4HR PRN PRN Reason: NAUSEA OR VOMITING Stop: 06/15/25 02:02 Discontinued Medications Clopidogrel Bisulfate (Clopidogrel Bisulfate 75 Mg Tablet) 300 mg PO X1 ONE Stop: 05/16/25 02:54 Last Admin: 05/16/25 03:07 Dose: 300 mg Sodium Chloride (Ns) 500 mls @ 500 mls/hr IV .Q1H ONE Stop: 05/16/25 02:46 Last Infusion: 05/16/25 04:33 Dose: Infused Labetalol HCl (Labetalol Inj 5 Mg/Ml Vial 4 Ml) 10 mg IVP Q15M PRN PRN Reason: hypertension Metoclopramide HCl (Metoclopramide Inj 5 Mg/Ml Vial 2 Ml) 5 mg IVP X1 ONE; Protocol Stop: 05/16/25 01:47 Last Admin: 05/16/25 01:59 Dose: 5 mg Midazolam HCl (Midazolam Inj 1 Mg/Ml Vial 2 Ml) 2 mg IVP X1 ONE Stop: 05/16/25 01:46 Last Admin: 05/16/25 01:59 Dose: 2 mg Assessment & Plan Plan Mr. Main Love, with PMH of TIA, hypertension, herpes zoster neuralgia, hepatitis, arthritis, gout, vertigo, bilateral carotid stenosis, thrombocytopenia, glaucoma, and chronic back pain, presented to the ED on 05/16/2025 with worsening dizziness, nausea, and vomiting. Patient was admitted and cardiology was consulted on 05/16/2025 for further management of stroke rule out and treatment of occlusion of the M1 branch of the right artery MCA and distal right vertebral arteries. #Stroke R/o #Right Middle Cerebral artery M1 segment 70% Stenosis #Distal right vertebral artery occlusion #Mild bilateral carotid stenosis -Past admission with similar complaints, was diagnosed with TIA at the time -Complained of worsening dizziness, nausea and vomiting -Head CT (05/16/2025): Negative for acute hemorrhage, mass effect or midline shift -CTA head/neck (05/16/2025): 70% stenosis left carotid bifurcation 50% stenosis origin left internal carotid artery, Significantly atretic distal right vertebral artery 70% stenosis M1 segment right middle cerebral artery, Reduced filling of the right middle cerebral artery trifurcation vessels -Brain MRI and MRA (05/16/2025): The right vertebral artery is thready and is not seen to join with the left vertebral artery to form the basilar artery. Otherwise, unremarkable findings. -ECHO (05/16/2025) showed: 1. Left ventricle size is normal and systolic function is mildly reduced. Estimated ejection fraction is 45-50%. There is indeterminate diastolic function. 2. Right ventricle chamber size is mildly enlarged and systolic function is normal. 3. Mild AV sclerosis without stenosis, mean gradient 5mmHg, Vmax 1.7m/s. Moderate MAC. Trace MR and mild TR. 4. Prior study from 04/01/2025, agitated saline contrast was performed, shows no evidence of intra-cardiac shunt. -Holter monitoring (04/19/2025) showed avg HR of 58bpm, Sinus bradycardia as predominating rhythm, and 0% Atrial Fibrillation. -Carotid doppler (04/02/2025): showed Right internal carotid artery demonstrates 30 to 50% stenosis. Left internal carotid artery demonstrates 20 to 40% stenosis. Plan: -Continue ASA 81mg daily and Plavix 75mg po qd -Atorvastatin 40mg po HS -Neuro Check q4hr -Bedside swallow eval -Head of bed 30 degrees -Labetalol 10 mg IV q2h prn if BP>220/105 -Zofran 4mg IV q4hr prn for Nausea or Vomiting. -Consulted physical therapy, and speech. -Permissive Hypertension in the first 48hrs continue to hold home antihypertensives. #Hypertension #Sinus Bradycardia -On admission, IA 65, RR 17, BP 169/79. On 05/16, BP 143/71 and HR 56 -Patient's Home BP med includes: Amlodipine 5mg po qd, Entresto 24-26mg po bid. -Resume once after 48hrs, or if SBP goes over 220. -Do not give patient beta florencio. #History of vertigo -Management per Primary Hospitalist team Thank you for allowing us to participate in the care of Mr. Main Love Assessment and plan discussed with my attending physician Dr. Barry. Dr. Vallecillo (PGY-1) - Internal medicine resident Attending Provider Attestation/Addendum I have personally seen and examined the patient separately on the above date of service and discussed the plan of care with the resident. I reviewed the resident Dr. Senthil Vallecillo consultation progress note and agree with the resident findings and plan in the note above and have also edited the documentation to reflect my findings and plan. Patient well known to me from the previous admission and also he follows with me in the clinic. Patient was admitted recently in March 2025 for an episode of TIA. Workup at that time showed an atretic right vertebral artery and there was mild bilateral carotid artery stenosis along with mild disease in the MCA distribution but no significant occlusion of any of the arteries. Patient did have vertigo along with some tinnitus and was supposed to see an ENT doctor and also neurologist to rule out any kind of ENT as well as neurological causes for the dizziness. Patient did have a cardiac workup including an echo which showed mild systolic dysfunction and was started on goal-directed medical therapy in the office and he has bradycardia and Holter monitoring was performed as outpatient which also rule out any kind of arrhythmias including any atrial fibrillation. Patient was in sinus bradycardia moderate. The time with lowest heart rate of 45 bpm and the maximum heart rate of 87 bpm. He presented again with similar symptoms of dizziness along with room spinning sensation which lasted more for than an hour. Patient apparently was sitting and he started noticing that he started having some dizziness, took some meclizine which was prescribed recently with which improved quickly and then he decided to go to the restroom and later on found himself to be in very dizzy which lasted for almost an hour with along with some tinnitus and role-playing sensation. Patient did not have any syncope or fall or loss of consciousness or any seizure-like activity. Denies any chest pain chest pressure shortness of breath or orthopnea or PND. Denies any calf leg swelling. Again CT head, CTA, MRI and MRI of the brain was completed. It again shows right vertebral artery is atretic. Patient MRA did not show any major vascular pathology and MRA did not show any acute ischemic or hemorrhagic infarcts. CTA showed questionable 70% stenosis of the middle cerebral artery as well as moderate stenosis of the left carotid artery bifurcation as well as right carotid artery. Patient did have bilateral carotid duplex and shows only mild disease and even the middle cerebral artery and the MRA does not show any significant stenosis and unlikely cause of the symptoms of this patient is with dizziness, room spinning sensation associated with nausea. Would recommend to continue to look for middle ear ENT causes along with neurology etiology for his dizziness. Patient's blood pressure is elevated and patient is apparently permissible hypertension but recommend to restart his goal-directed medical treatment including his Entresto which was started recently as patient will need it given his mildly reduced systolic dysfunction which appears to be slowly improving. This goal blood pressure is 130/80 mmHg, keep pressure greater than for emergency greater than 2.0 at all times. Strict input output Daily weights and 2 g sodium diet. Management of rest of the medical conditions as per primary team and other consultants. Thank you for the consult and allowing me to participate in the care of the patient. Cardiology will continue to follow. Francis Barry M.D. Interventional Cardiology
[2025-05-16] MEDS: ATORVASTATIN CALCIUM 10 MG TABLET 40 MG PO (20:11)
[2025-05-17] VITALS (7 sets, daily range): BP systolic 115–177; BP diastolic 60–84; PULSE 54–82; RESP 16–18; TEMP 36.2–36.8; O2SAT 94–97; BMI 34.5
[2025-05-17 06:24] LABS: Basophils # (Auto) 0.0 Thou/mm3 (0.0-0.2); Basophils % (Auto) 1 % (0-2.5); Eosinophils # (Auto) 0.2 Thou/mm3 (0.0-0.5); Eosinophils % (Auto) 4 % (0-10); Hematocrit 37.2 % (41.0-53.0); Hemoglobin 12.7 g/dL (13.5-16.0); Immature Granulocytes Auto 0.01 Thou/mm3 (0.00-0.00); Lymphocytes # (Auto) 1.6 Thou/mm3 (1.0-4.8); Lymphocytes % (Auto) 34 % (10-50); Mean Corpuscular HGB Conc 34.1 g/dl (31.0-37.0); Mean Corpuscular Hemoglobin 32.9 pg (25.0-35.0); Mean Corpuscular Volume 96 fL (80-100); Monocytes # (Auto) 0.5 Thou/mm3 (0.0-0.8); Monocytes % (Auto) 10 % (0-12); Neutrophils # (Auto) 2.4 Thou/mm3 (1.8-7.7); Neutrophils % (Auto) 51 % (37-80); Nucleated Red Blood Cell # 0.00 Thou/mm3 (0.00-0.00); Nucleated Red Blood Cell % 0 /100 WBC (0); Platelet Count 105 Thou/mm3 (140-440); RDW Standard Deviation 45.8 fL (35.1-43.9); Red Blood Count 3.86 Miln/mm3 (4.50-5.90); White Blood Count 4.6 Thou/mm3 (3.8-10.6)
[2025-05-17 06:40] LABS: Alanine Aminotransferase 41 U/L (10-49); Albumin, Serum 3.2 gm/dL (3.4-4.8); Albumin/Globulin Ratio 1.1 (1.2-2.2); Alkaline Phosphatase 70 U/L (46-116); Anion Gap 10 (7-16); Aspartate Amino Transferase 51 U/L (0-34); BUN/Creatinine Ratio 12 Ratio (12-20); Bilirubin,Total 0.9 mg/dL (0.3-1.2); Blood Urea Nitrogen 7 mg/dL (9-23); Calcium 8.6 mg/dL (8.3-10.6); Calcium (Corrected) 9.2 mg/dL (8.5-10.1); Carbon Dioxide 24.9 mMol/L (20.0-31.0); Chloride 109 mMol/L (98-107); Creatinine (Component) 0.6 mg/dL (0.6-1.3); Estimated Creatinine Clearance 99.8 mL/min (>60); Globulin 3.0 gm/dL (2.3-3.5); Glucose 86 mg/dL (74-106); Magnesium 1.9 mg/dL (1.6-2.6); Osmolality,Calculated 283 (275-295); Phosphorous 4.2 mg/dL (2.4-5.1); Potassium 3.8 mMol/L (3.4-5.1); Sodium 144 mMol/L (136-145); Total Protein 6.2 gm/dL (5.7-8.2); eGFR > 60 See Note
[2025-05-17] MEDS: ASPIRIN EC 81 MG TABEC PO (08:35)
[2025-05-17] MEDS: MECLIZINE HCL 25 MG TABLET PO (08:35)
[2025-05-17] MEDS: CLOPIDOGREL BISULFATE 75 MG TABLET PO (08:35)
--- NOTE | 2025-05-17 08:43 | ESPR_ITS ---
Documentation for date of: 05/17/25 Subjective Subjective Interval history: Patient seen and examined at bedside Has no current complaints, denies any chest pain shortness of breath orthopnea. Patient denies any dizziness or recurrence of similar episode again. Patient's MRI negative for any acute infarct, is pending neurology recommendations. No gross focal neurological deficits Will need close follow up with neurology and ENT to rule out neurological and middle ear causes for his dizziness. Exam Vital Signs Temp Pulse Resp BP Pulse Ox O2 Del Method 97.2 F 77 17 141/68 H 94 L Room Air 05/17/25 08:00 05/17/25 08:00 05/17/25 08:00 05/17/25 08:00 05/17/25 08:00 05/17/25 08:00 Narrative Exam General: No acute distress, well nourished, AAO x3 Eye: PERRL, EOMI, normal conjunctiva, no scleral icterus HENT: Normocephalic, atraumatic, hearing intact to conversation at normal volume, moist oral mucosa Neck: Supple, non-tender, no JVD, no lymphadenopathy Lungs: Non-labored respirations, symmetric chest rise, Clear to auscultate bilaterally, No wheezing, rhonchi, crackles Heart: Peripheral pulses intact bilaterally, Regular Rate and Rhythm. Abdomen: Soft, non-tender, non-distended, no palpable masses Musculoskeletal: Normal range of motion and strength, No cyanosis or edema, No visible joint swelling Skin: Skin is warm, dry, no rashes or lesions. Psychiatric: Cooperative, appropriate mood and affect, Awake and alert, not agitated Neuro: Cranial nerves II-XII grossly intact. Strength 5/5 throughout. Sensations intact to light touch. Objective Labs 05/17/25 05:29 05/17/25 05:29 Labs: Laboratory Results - last 24 hr 05/17/25 05:29 WBC 4.6 D RBC 3.86 L Hgb 12.7 L Hct 37.2 L MCV 96 MCH 32.9 MCHC 34.1 RDW Std Deviation 45.8 H Plt Count 105 L D Neut % (Auto) 51 Lymph % (Auto) 34 [place] % (Auto) 10 Eos % (Auto) 4 Baso % (Auto) 1 Neut # (Auto) 2.4 Lymph # (Auto) 1.6 [place] # (Auto) 0.5 Eos # (Auto) 0.2 Baso # (Auto) 0.0 Immature Gran # (Auto) 0.01 H Absolute Nucleated RBC 0.00 Immature Gran % 0 Nucleated RBC % 0 Sodium 144 Potassium 3.8 Chloride 109 H Carbon Dioxide 24.9 Anion Gap 10 BUN 7 L Creatinine 0.6 Estim Creat Clear Calc 99.8 eGFR > 60 BUN/Creatinine Ratio 12 Glucose 86 Calculated Osmolality 283 Calcium 8.6 Corrected Calcium 9.2 Phosphorus 4.2 Magnesium 1.9 Total Bilirubin 0.9 AST 51 H ALT 41 Alkaline Phosphatase 70 D Total Protein 6.2 Albumin 3.2 L D Globulin 3.0 Albumin/Globulin Ratio 1.1 L Quality Measures Quality Measures stroke Suspected type of Stroke: Unknown at this time Last known well (date): 05/16/25 Last known well (time): 01:00 Tenecteplase given: Reason(s) Tenecteplase not given: Outside the time window not given Rehab services: PT evaluation ordered and Speech Language Pathology eval ordered VTE Prophylaxis: pharmaceutical Antithrombotic by day 2:: ordered Statin ordered: >75 y/o moderate or high intensity dose Anticoagulation ordered for A-fib or flutter (current or hx): not indicated Advance care planning discussed with:: patient Assessment & Plan Assessment Current Active Medications: Generic Name Dose Route Start Last Admin Trade Name Freq PRN Reason Stop Dose Admin Acetaminophen 650 mg 05/16/25 05:08 Acetaminophen 325 Mg Tablet PO 06/15/25 05:07 Q6H PRN Fever >100.4 Aspirin 81 mg 05/16/25 09:00 05/17/25 08:35 Aspirin Ec 81 Mg Tabec PO 06/15/25 08:59 81 mg DAILY ERNIE Administration Atorvastatin Calcium 40 mg 05/16/25 21:00 05/16/25 20:11 Atorvastatin Calcium 10 Mg Tablet PO 06/15/25 20:59 40 mg HS ERNIE Administration Clopidogrel Bisulfate 75 mg 05/16/25 09:00 05/17/25 08:35 Clopidogrel Bisulfate 75 Mg Tablet PO 06/15/25 08:59 75 mg DAILY ERNIE Administration Labetalol HCl 10 mg 05/16/25 10:54 Labetalol Inj 5 Mg/Ml Vial 4 Ml IVP Q15M PRN hypertension SBP >220 Meclizine HCl 25 mg 05/16/25 09:00 05/17/25 08:35 Meclizine Hcl 25 Mg Tablet PO 06/15/25 08:59 25 mg DAILY ERNIE Administration Ondansetron HCl 4 mg 05/16/25 02:03 Ondansetron Inj 2 Mg/Ml Inj 2 Ml IVP 06/15/25 02:02 Q4HR PRN NAUSEA OR VOMITING Sacubitril/Valsartan 1 tab 05/17/25 09:00 05/17/25 08:35 Sacubitril 24 Mg/Valsartan 26 Mg Tablet PO 06/16/25 08:59 1 tab BID ERNIE Administration Plan Assessment and plan: Summary: Mr. Main Love is a 79-year-old male with past medical history of TIA, hypertension, herpes zoster neuralgia, hepatitis, arthritis, gout, vertigo, bilateral carotid stenosis, thrombocytopenia, glaucoma, and chronic back pain, presented to the ED on 05/16/2025 with worsening dizziness, nausea, and vomiting. Patient was admitted and cardiology was consulted on 05/16/2025 for further management of stroke rule out and treatment of occlusion of the M1 branch of the right artery MCA and distal right vertebral arteries. #CVA workup negative for acute infarct #Right Middle Cerebral artery M1 segment 70% Stenosis #Atretic right vertebral artery #Mild bilateral carotid stenosis Patient was recently seen in March 2025 for an episode of TIA, patient follows cardiology outpatient and is well-known to practice. Patient experienced an episode of vision changes while watching television where he saw the TV rotate and he experienced a warm sensation in his abdomen, on standing up he experienced some dizziness which eventually improved on its own. Patient denies any syncope/fall/loss of consciousness or any seizure-like activity. Patient noted to have dizziness outpatient as well was referred to otorhinolaryngology and is following neurology outpatient. Echocardiogram outpatient shows heart failure with moderately reduced ejection fraction, was started on GDMT outpatient. -Holter monitoring (04/19/2025) showed avg HR of 58bpm, Sinus bradycardia as predominating rhythm, and 0% Atrial Fibrillation. -Carotid doppler (04/02/2025): showed Right internal carotid artery demonstrates 30 to 50% stenosis. Left internal carotid artery demonstrates 20 to 40% stenosis. -Head CT (05/16/2025): Negative for acute hemorrhage, mass effect or midline shift -CTA head/neck (05/16/2025): 70% stenosis left carotid bifurcation 50% stenosis origin left internal carotid artery, Significantly atretic distal right vertebral artery 70% stenosis M1 segment right middle cerebral artery, Reduced filling of the right middle cerebral artery trifurcation vessels -Brain MRI and MRA (05/16/2025): The right vertebral artery is thready and is not seen to join with the left vertebral artery to form the basilar artery. Otherwise, unremarkable findings. ECHO (05/16/2025) showed: 1. Left ventricle size is normal and systolic function is mildly reduced. Estimated ejection fraction is 45-50%. There is indeterminate diastolic function. 2. Right ventricle chamber size is mildly enlarged and systolic function is normal. 3. Mild AV sclerosis without stenosis, mean gradient 5mmHg, Vmax 1.7m/s. Moderate MAC. Trace MR and mild TR. 4. Prior study from 04/01/2025, agitated saline contrast was performed, shows no evidence of intra-cardiac shunt. Plan: - Aspirin and Plavix per neurology recommendations - Continue atorvastatin 40 mg at bedtime - Resume GDMT - Will need close follow up with neurology and ENT to rule out neurological and middle ear causes for his dizziness. 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 Blood pressures permissible to resume Entresto Patient noted to be sinus rhythm, no bradycardia noted currently -Resume GDMT with Sacubitril/valsartan 24 to 26 mg twice daily and no beta- florencio as patient had predominant rhythm sinus bradycardia on Holter and does have dizziness. - Consider resuming amlodipine after sacubitril/valsartan if needed for blood pressure control #History of vertigo -Management per Primary Hospitalist team #History of vertigo #History of TIA #History of herpes zoster neuralgia #History of hepatitis #History of arthritis #History of gout #History of thrombocytopenia - Management as per primary team Thank you for the consult and allowing to participate in the care of the patient. Cardiology will continue to follow. Case discussed with Attending Physician Dr. Francis Blackwood MD Internal Medicine PGY-2 Disclaimer: This note was dictated by speech recognition. Minor errors in stenotype machine operator may be present due to voice recognition software. Attending Provider Attestation/Addendum I have personally seen and examined the patient separately on the above date of service and discussed the plan of care with the resident. I reviewed the resident Dr. Deejay Blackwood consultation progress note and agree with the resident findings and plan in the note above and have also edited the documentation to reflect my findings and plan. Francis Barry M.D. Interventional Cardiology
[2025-05-17] MEDS: MAGNESIUM OXIDE 400 MG TABLET PO (10:18)
--- NOTE | 2025-05-17 13:50 | PC.SS ---
Walkers The diagnosis creates mobility limitation that significantly impairs ability to participate in the patients activities of daily living either in their entirety, or in a reasonable time frame. Also the patient is able to safely use the walker and the patient?s mobility is sufficiently resolved with the use of the walker and cane has been ruled out.
--- NOTE | 2025-05-17 13:55 | PC.PT ---
PT eval only. Patient is safe to ambulate to the bathroom and hallways with no staff and no AD. RN made aware.
--- NOTE | 2025-05-17 17:01 | PC.SS ---
DME referral for walker submitted on [facility]. Responses are pending.
--- NOTE | 2025-05-17 17:20 | ESPR_ITS ---
Documentation for date of: 05/17/25 No overnight events. Pending final recommendations for TIA from neurology. 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 Continue Amlodipine 5 mg once daily and Entresto resumed. Fluid restrictions. Strict In and Outs. Per Patient history dry weight of 194 with no changes, from home weight. Patient net 440 ml. Dry BNP appears to be 78 (03/31/2025). Entresto resumed. I have discussed the case with supervising physician and creative services intern physician involved in the care of patient. I personally saw and examined patient and discussed the assessment and plan with the entire medical team, including attending. I agree with assessment and plan as documented above. - The patient's plan was discussed with attending Dr. Sergio Nixon MD PGY2 Internal Medicine Subjective Subjective Interval history: Patient was seen and examined at bedside. No acute events took place overnight. This morning patient states that his dizziness has fully resolved since admission. Patient denies fevers, chills, lightheadedness, and is able to ambulate safely walking. Patient states that following previous hospitalization, he has not seen an ENT or a neurologist. F/U neurology appt had been scheduled for late May 2025. Exam Vital Signs Temp Pulse Resp BP Pulse Ox O2 Del Method 98.2 F 72 16 141/75 H 96 Room Air 05/17/25 12:00 05/17/25 12:00 05/17/25 12:00 05/17/25 12:00 05/17/25 12:00 05/17/25 12:00 Narrative Exam General: Awake and in no acute distress. Conversational and non-toxic appearing. Neurologic: GCS 15. Alert and oriented x3, no gross neurological deficit, and patient able to move all 4 extremities. HEENT: Head impulse test negative for catch-up saccade. Present bidirectional nystagmus with sideway look. Negative test of skew. Negative [place]-Hallpike maneuver Normocephalic, atraumatic, mucous membranes moist. Heart: Regular rate and rhythm, normal S1 and S2, no murmurs. Lungs: Clear to auscultation bilaterally with no wheezing or crackles. Abdomen: Soft, nondistended, nontender, positive bowel sounds. No guarding or rebound tenderness. Extremities: No edema. 2+ radial and dorsalis pedis pulses bilaterally. Skin: Warm. Dry. No rash or ecchymoses. Objective Labs 05/17/25 05:29 05/17/25 05:29 Labs: Laboratory Results - last 24 hr 05/17/25 05:29 WBC 4.6 D RBC 3.86 L Hgb 12.7 L Hct 37.2 L MCV 96 MCH 32.9 MCHC 34.1 RDW Std Deviation 45.8 H Plt Count 105 L D Neut % (Auto) 51 Lymph % (Auto) 34 [place] % (Auto) 10 Eos % (Auto) 4 Baso % (Auto) 1 Neut # (Auto) 2.4 Lymph # (Auto) 1.6 [place] # (Auto) 0.5 Eos # (Auto) 0.2 Baso # (Auto) 0.0 Immature Gran # (Auto) 0.01 H Absolute Nucleated RBC 0.00 Immature Gran % 0 Nucleated RBC % 0 Sodium 144 Potassium 3.8 Chloride 109 H Carbon Dioxide 24.9 Anion Gap 10 BUN 7 L Creatinine 0.6 Estim Creat Clear Calc 99.8 eGFR > 60 BUN/Creatinine Ratio 12 Glucose 86 Calculated Osmolality 283 Calcium 8.6 Corrected Calcium 9.2 Phosphorus 4.2 Magnesium 1.9 Total Bilirubin 0.9 AST 51 H ALT 41 Alkaline Phosphatase 70 D Total Protein 6.2 Albumin 3.2 L D Globulin 3.0 Albumin/Globulin Ratio 1.1 L Quality Measures Quality Measures stroke Suspected type of Stroke: Unknown at this time Last known well (date): 05/16/25 Last known well (time): 01:00 Tenecteplase given: Reason(s) Tenecteplase not given: Outside the time window not given Rehab services: PT evaluation ordered VTE Prophylaxis: pharmaceutical Antithrombotic by day 2:: not indicated (describe) Statin ordered: >75 y/o moderate or high intensity dose Anticoagulation ordered for A-fib or flutter (current or hx): not indicated Advance care planning discussed with:: patient Assessment & Plan Assessment Current Active Medications: Generic Name Dose Route Start Last Admin Trade Name Freq PRN Reason Stop Dose Admin Acetaminophen 650 mg 05/16/25 05:08 Acetaminophen 325 Mg Tablet PO 06/15/25 05:07 Q6H PRN Fever >100.4 Aspirin 81 mg 05/16/25 09:00 05/17/25 08:35 Aspirin Ec 81 Mg Tabec PO 06/15/25 08:59 81 mg DAILY ERNIE Administration Atorvastatin Calcium 40 mg 05/16/25 21:00 05/16/25 20:11 Atorvastatin Calcium 10 Mg Tablet PO 06/15/25 20:59 40 mg HS ERNIE Administration Clopidogrel Bisulfate 75 mg 05/16/25 09:00 05/17/25 08:35 Clopidogrel Bisulfate 75 Mg Tablet PO 06/15/25 08:59 75 mg DAILY ERNIE Administration Labetalol HCl 10 mg 05/16/25 10:54 Labetalol Inj 5 Mg/Ml Vial 4 Ml IVP Q15M PRN hypertension SBP >220 Meclizine HCl 25 mg 05/16/25 09:00 05/17/25 08:35 Meclizine Hcl 25 Mg Tablet PO 06/15/25 08:59 25 mg DAILY ERNIE Administration Ondansetron HCl 4 mg 05/16/25 02:03 Ondansetron Inj 2 Mg/Ml Inj 2 Ml IVP 06/15/25 02:02 Q4HR PRN NAUSEA OR VOMITING Sacubitril/Valsartan 1 tab 05/17/25 09:00 05/17/25 08:35 Sacubitril 24 Mg/Valsartan 26 Mg Tablet PO 06/16/25 08:59 1 tab BID ERNIE Administration Plan Summary: 79-year-old male past medical history of TIA, hypertension, herpes zoster neuralgia, hepatitis, arthritis, gout, vertigo, bilateral carotid stenosis, thrombocytopenia, who presented to the ED in the food and beverage intern of 05/16/2025 with a chief complaint of dizziness, nausea, and vomiting. Stroke alert was initiated on arrival. 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 The ED physician contacted neurointerventional radiology at [facility] who determined that due to the patient having an NIHSS stroke scale of 0 that admission and treatment with DAPT would be most appropriate for the patient as opposed to surgical intervention. Tele-neurology was consulted and concurred with treatment inpatient with DAPT. Patient was admitted for stroke rule out and treatment of occlusion of the M2 branch of the right MCA and distal right vertebral arteries. #TIA * Patient was discharged from [facility] on 04/03/2025 and diagnosed with TIA, was discharged on aspirin only due to thrombocytopenia at the time * Patient presented to [facility] in the food and beverage intern of 05/16/2025 with chief complaint of dizziness * NIHSS score 0, no focal neurological deficits on exam * Head CT negative * Prior Echo study from 04/01/2025, agitated saline contrast was performed, shows no evidence of intra-cardiac shunt. * Patient passed nursing swallow screen * PT evaluated the patient functional capacity. xI with bed mobility, transfers, and ambulation. No further needs identified at this time. Patient is requesting a FWW for home use on days where his back pain is flaring up. PULMONARY SPECIALIST made aware. Plan: * Neurology, Dr Cunningham, consulted; appreciate recommendations. * Aspirin 81 mg p.o. daily * Clopidogrel 75 mg daily * Atorvastatin 40 mg p.o. 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 #Distal right vertebral artery near occlusion #left carotid bifurcation, 70% stenosis * Patient presented to the ED approximately 1 hour after sustained dizziness * Patient had rotary nystagmus on exam * CT angiogram of head and neck showed probable occlusion of an M2 branch of the right MCA, near occlusion of the distal right vertebral artery * ED physician contacted neurointerventional radiology at [facility] who recommended against surgical intervention given NIHSS score of 0 with no debilitating neurological deficits, teleneurology was consulted and recommended DAPT therapy * MRI of the brain wo con The lateral ventricles are normal in size and contour. There is no midline shift, intracranial bleed, mass, cortical edema or focus of restricted diffusion. MRA showed No acute diagnostic abnormality. The right vertebral artery is thready and is not seen to join with the left vertebral artery to form the basilar artery. Minimally visualized origin of the left superior cerebellar artery. * CTA head/neck showed 70% stenosis left carotid bifurcation, 50% stenosis origin left internal carotid artery. Significantly atretic distal right vertebral artery. 70% stenosis M1 segment right middle cerebral artery. 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 Left ventricle size is normal and systolic function is mildly reduced. Estimated ejection fraction is 45-50%. There is indeterminate diastolic function. 2. Right ventricle chamber size is mildly enlarged and systolic function is normal. 3. Mild AV sclerosis without stenosis, mean gradient 5mmHg, Vmax 1.7m/s. Moderate MAC. Trace MR and mild TR. Plan: * Cardiology, Rachele Barry and Ruth Ann consulted, appreciate recommendations. * Resumed GDMT with Sacubitril/valsartan 24/26 mg BID * No beta-florencio as patient had predominant rhythm sinus bradycardia on Holter and does have dizziness. * Will resume amlodipine after sacubitril/valsartan if needed for blood pressure control * F/U on orthostatic vitals #History of vertigo * Per patient history * Patient had rotary nystagmus on exam, may reinforce central vertigo, may also be reinforced by MCA and vertebral artery occlusion * Head impulse test positive with catch-up saccade. Present bidirectional nystagmus with sideway look. Negative test of skew. Negative [place]-Hallpike maneuver * Patient described recent cold sores on the right side of his tongue, consider that this may be secondary to HSV and may contribute to vertigo via labyrinthitis versus vestibular neuritis, this may reinforce peripheral vertigo Plan: * Resumed home meclizine 25 mg p.o. daily as needed * ordered orthostatic vitals Hospital Maintenance: DVT ppx: Patient is ambulatory Diet: Pending nurse swallow screen IV lines: Peripheral IVs Code status: Full code Dispo: Telemetry monitoring floor, neurochecks Q4, DAPT for MCA and vertebral artery occlusions. This case was discussed with my attending physician, Dr. Hill, and senior resident, Dr Nixon. Even though this this note was carefully revised there may still be minor errors in television installer helper due to voice recognition software. Trixie Peguero DO PGY I Attending Provider Attestation/Addendum I, Arina Hill DO, attest that I was physically present for the muñoz portions of the service and evaluated the patient with the resident and I reviewed and discussed the case with the resident and agree with the resident's findings and plans of care as documented above Patient seen and evaluated this AM. He states that he is feeling well and has the same symptoms on last admission in March. He denies any further episodes of dizziness, which he had experienced on presentation. Will f/u with neurology recommendations. He is noted to have a horizontal saccade when following moving target on eye exam. He is otherwise neurologically intact. Rest of stroke w/u remains negative. Explained to patient his findings of CTA head/neck that shows 70% stenosis right m1 MCA and 70% stenosis of left carotid bifurcation. Discussed with pt that he may need a referral to both vascular and ENT upon discharge.
[2025-05-17] MEDS: ACETAMINOPHEN 325 MG TABLET 650 MG PO (19:32)
[2025-05-17] MEDS: ATORVASTATIN CALCIUM 10 MG TABLET 40 MG PO (20:22)
--- NOTE | 2025-05-17 21:20 | PC.NURSE ---
Dr. Cunningham in to see patient.
--- NOTE | 2025-05-17 23:45 | PD.NEUROPROG ---
Documentation for date of: 05/17/25 Subjective Subjective Interval history: Patient was seen in [facility] today at the bedside. No complaints or issues overnight. Did not have any recurrent episodes of TIA. Exam - Neurology Vital Signs Temp Pulse Resp BP Pulse Ox O2 Del Method 97.3 F 55 L 16 159/71 H 96 Room Air 05/17/25 20:00 05/17/25 21:00 05/17/25 20:00 05/17/25 21:00 05/17/25 20:00 05/17/25 20:00 Narrative Exam GENERAL APPEARANCE: Well hydrated, obese built male in no acute distress. HEENT: Normocephalic, atraumatic, extraocular movements intact. Pupils: Equal reacting to light and accommodation, no nystagmus noted. NECK: Supple, no JVD or bruits. CARDIOVASULAR: Heart: S1, S2 heard, regular without S3-S4 or murmur no rubs or gallops. LUNGS/CHEST: Clear to auscultation bilaterally. No rails, rhonchi, or wheezing. Normal inspection. ABDOMEN: Soft, nontender, with normal bowel sounds. No pulsatile masses. No rebound, rigidity, or guarding. Normal inspection and palpation. EXTREMITIES: Normal inspection and palpation. No edema, clubbing or cyanosis. SKIN: Warm and dry without rashes. Normal inspection. MUSCULOSKELETAL: No cervical, thoracic, lumbar or midline bony tenderness. Normal inspection. NEURO: Alert, awake and oriented x3. Cranial nerves: II through XII grossly intact. Speech and language: Normal with no dysarthria or dysphasia. Motor system: Tone and bulk: Normal: Strength: 5 out of 5 in all 4 extremities; No pronator drift noted. Deep tendon reflexes: 2+ bilaterally symmetrical. Plantar reflex: Downgoing bilaterally. Sensory system: Intact to all modalities of sensation bilaterally. Coordination: Intact to [id number] and [id number] test bilaterally. No ataxia, no dysmetria, or dysdiadochokinesia noted. No intention tremors noted. Gait: Not tested. no Signs of meningeal irritation noted. PSYCHIATRIC: Normal mood and affect. Objective Labs 05/18/25 04:58 05/18/25 04:58 Labs: Laboratory Results - last 24 hr 05/17/25 05:29 WBC 4.6 D RBC 3.86 L Hgb 12.7 L Hct 37.2 L MCV 96 MCH 32.9 MCHC 34.1 RDW Std Deviation 45.8 H Plt Count 105 L D Neut % (Auto) 51 Lymph % (Auto) 34 [place] % (Auto) 10 Eos % (Auto) 4 Baso % (Auto) 1 Neut # (Auto) 2.4 Lymph # (Auto) 1.6 [place] # (Auto) 0.5 Eos # (Auto) 0.2 Baso # (Auto) 0.0 Immature Gran # (Auto) 0.01 H Absolute Nucleated RBC 0.00 Immature Gran % 0 Nucleated RBC % 0 Sodium 144 Potassium 3.8 Chloride 109 H Carbon Dioxide 24.9 Anion Gap 10 BUN 7 L Creatinine 0.6 Estim Creat Clear Calc 99.8 eGFR > 60 BUN/Creatinine Ratio 12 Glucose 86 Calculated Osmolality 283 Calcium 8.6 Corrected Calcium 9.2 Phosphorus 4.2 Magnesium 1.9 Total Bilirubin 0.9 AST 51 H ALT 41 Alkaline Phosphatase 70 D Total Protein 6.2 Albumin 3.2 L D Globulin 3.0 Albumin/Globulin Ratio 1.1 L Assessment & Plan Assessment and plan (1) TIA (transient ischemic attack): Status: Acute Assessment and plan: Affecting the posterior circulation with MR a findings consistent with that Reassurance given to the patient regarding the findings Continue with dual antiplatelet therapy for 90 days and statin (2) Hypertension: Status: Chronic Assessment and plan: Continue with aggressive blood pressure
[2025-05-18] VITALS: BP 140/71; PULSE 57; PULSE 63; RESP 16; TEMP 36.4; O2SAT 97
[2025-05-18 04:00] VITALS: BP 131/73; PULSE 54; PULSE 60; RESP 17; TEMP 36.2; O2SAT 98
[2025-05-18 05:54] LABS: Basophils # (Auto) 0.1 Thou/mm3 (0.0-0.2); Basophils % (Auto) 1 % (0-2.5); Eosinophils # (Auto) 0.2 Thou/mm3 (0.0-0.5); Eosinophils % (Auto) 5 % (0-10); Hematocrit 40.1 % (41.0-53.0); Hemoglobin 13.7 g/dL (13.5-16.0); Immature Granulocytes Auto 0.01 Thou/mm3 (0.00-0.00); Lymphocytes # (Auto) 1.8 Thou/mm3 (1.0-4.8); Lymphocytes % (Auto) 37 % (10-50); Mean Corpuscular HGB Conc 34.2 g/dl (31.0-37.0); Mean Corpuscular Hemoglobin 32.8 pg (25.0-35.0); Mean Corpuscular Volume 96 fL (80-100); Monocytes # (Auto) 0.5 Thou/mm3 (0.0-0.8); Monocytes % (Auto) 11 % (0-12); Neutrophils # (Auto) 2.3 Thou/mm3 (1.8-7.7); Neutrophils % (Auto) 46 % (37-80); Nucleated Red Blood Cell # 0.00 Thou/mm3 (0.00-0.00); Nucleated Red Blood Cell % 0 /100 WBC (0); Platelet Count 122 Thou/mm3 (140-440); RDW Standard Deviation 45.1 fL (35.1-43.9); Red Blood Count 4.18 Miln/mm3 (4.50-5.90); White Blood Count 4.9 Thou/mm3 (3.8-10.6)
[2025-05-18 06:00] VITALS: BMI 34.5
[2025-05-18 06:29] LABS: Alanine Aminotransferase 39 U/L (10-49); Albumin, Serum 3.5 gm/dL (3.4-4.8); Albumin/Globulin Ratio 1.1 (1.2-2.2); Alkaline Phosphatase 73 U/L (46-116); Anion Gap 11 (7-16); Aspartate Amino Transferase 47 U/L (0-34); BUN/Creatinine Ratio 11 Ratio (12-20); Bilirubin,Total 1.0 mg/dL (0.3-1.2); Blood Urea Nitrogen 8 mg/dL (9-23); Calcium 9.2 mg/dL (8.3-10.6); Calcium (Corrected) 9.6 mg/dL (8.5-10.1); Carbon Dioxide 23.8 mMol/L (20.0-31.0); Chloride 109 mMol/L (98-107); Creatinine (Component) 0.7 mg/dL (0.6-1.3); Estimated Creatinine Clearance 85.5 mL/min (>60); Globulin 3.1 gm/dL (2.3-3.5); Glucose 90 mg/dL (74-106); Magnesium 2.1 mg/dL (1.6-2.6); Osmolality,Calculated 285 (275-295); Phosphorous 4.2 mg/dL (2.4-5.1); Potassium 3.8 mMol/L (3.4-5.1); Sodium 144 mMol/L (136-145); Total Protein 6.6 gm/dL (5.7-8.2); eGFR > 60 See Note
[2025-05-18 08:00] VITALS: BP 145/75; PULSE 54; PULSE 65; RESP 17; TEMP 36.1; O2SAT 98
--- NOTE | 2025-05-18 08:37 | ESPR_ITS ---
Documentation for date of: 05/18/25 Subjective Subjective Interval history: Patient seen and examined at bedside, was seen by neurology yesterday. Nephrology suspects underlying etiology of TIA, recommend DAPT for 90 days and statin. Continue Entresto, elevated blood pressure noted, consider resuming home amlodipine. Patient discharged today, follow-up outpatient in clinic in 1 to 2 weeks. Exam Vital Signs Temp Pulse Resp BP Pulse Ox O2 Del Method 97.1 F 60 17 131/73 H 98 Room Air 05/18/25 04:00 05/18/25 04:00 05/18/25 04:00 05/18/25 04:00 05/18/25 04:00 05/18/25 04:00 Narrative Exam General: No acute distress, well nourished, AAO x3 Eye: PERRL, EOMI, normal conjunctiva, no scleral icterus HENT: Normocephalic, atraumatic, hearing intact to conversation at normal volume, moist oral mucosa Neck: Supple, non-tender, no JVD, no lymphadenopathy Lungs: Non-labored respirations, symmetric chest rise, Clear to auscultate bilaterally, No wheezing, rhonchi, crackles Heart: Peripheral pulses intact bilaterally, Regular Rate and Rhythm. Abdomen: Soft, non-tender, non-distended, no palpable masses Musculoskeletal: Normal range of motion and strength, No cyanosis or edema, No visible joint swelling Skin: Skin is warm, dry, no rashes or lesions. Psychiatric: Cooperative, appropriate mood and affect, Awake and alert, not agitated Neuro: Cranial nerves II-XII grossly intact. Strength 5/5 throughout. Sensations intact to light touch. Objective Labs 05/18/25 04:58 05/18/25 04:58 Labs: Laboratory Results - last 24 hr 05/18/25 04:58 WBC 4.9 RBC 4.18 L Hgb 13.7 Hct 40.1 L MCV 96 MCH 32.8 MCHC 34.2 RDW Std Deviation 45.1 H Plt Count 122 L Neut % (Auto) 46 Lymph % (Auto) 37 [place] % (Auto) 11 Eos % (Auto) 5 Baso % (Auto) 1 Neut # (Auto) 2.3 Lymph # (Auto) 1.8 [place] # (Auto) 0.5 Eos # (Auto) 0.2 Baso # (Auto) 0.1 Immature Gran # (Auto) 0.01 H Absolute Nucleated RBC 0.00 Immature Gran % 0 Nucleated RBC % 0 Sodium 144 Potassium 3.8 Chloride 109 H Carbon Dioxide 23.8 Anion Gap 11 BUN 8 L Creatinine 0.7 Estim Creat Clear Calc 85.5 eGFR > 60 BUN/Creatinine Ratio 11 L Glucose 90 Calculated Osmolality 285 Calcium 9.2 Corrected Calcium 9.6 Phosphorus 4.2 Magnesium 2.1 Total Bilirubin 1.0 AST 47 H ALT 39 Alkaline Phosphatase 73 Total Protein 6.6 Albumin 3.5 Globulin 3.1 Albumin/Globulin Ratio 1.1 L Quality Measures Quality Measures stroke Suspected type of Stroke: Unknown at this time Last known well (date): 05/16/25 Last known well (time): 01:00 Tenecteplase given: Reason(s) Tenecteplase not given: Outside the time window not given Rehab services: PT evaluation ordered and Speech Language Pathology eval ordered VTE Prophylaxis: pharmaceutical Antithrombotic by day 2:: ordered Statin ordered: >75 y/o moderate or high intensity dose Anticoagulation ordered for A-fib or flutter (current or hx): not indicated Advance care planning discussed with:: patient Assessment & Plan Assessment Current Active Medications: Generic Name Dose Route Start Last Admin Trade Name Freq PRN Reason Stop Dose Admin Acetaminophen 650 mg 05/16/25 05:08 05/17/25 19:32 Acetaminophen 325 Mg Tablet PO 06/15/25 05:07 650 mg Q6H PRN Administration Fever >100.4 Aspirin 81 mg 05/16/25 09:00 05/17/25 08:35 Aspirin Ec 81 Mg Tabec PO 06/15/25 08:59 81 mg DAILY ERNIE Administration Atorvastatin Calcium 40 mg 05/16/25 21:00 05/17/25 20:22 Atorvastatin Calcium 10 Mg Tablet PO 06/15/25 20:59 40 mg HS ERNIE Administration Clopidogrel Bisulfate 75 mg 05/16/25 09:00 05/17/25 08:35 Clopidogrel Bisulfate 75 Mg Tablet PO 06/15/25 08:59 75 mg DAILY ERNIE Administration Labetalol HCl 10 mg 05/16/25 10:54 Labetalol Inj 5 Mg/Ml Vial 4 Ml IVP Q15M PRN hypertension SBP >220 Meclizine HCl 25 mg 05/16/25 09:00 05/17/25 08:35 Meclizine Hcl 25 Mg Tablet PO 06/15/25 08:59 25 mg DAILY ERNIE Administration Ondansetron HCl 4 mg 05/16/25 02:03 Ondansetron Inj 2 Mg/Ml Inj 2 Ml IVP 06/15/25 02:02 Q4HR PRN NAUSEA OR VOMITING Sacubitril/Valsartan 1 tab 05/17/25 09:00 05/17/25 20:22 Sacubitril 24 Mg/Valsartan 26 Mg Tablet PO 06/16/25 08:59 1 tab BID ERNIE Administration Plan Assessment and plan: Summary: Mr. Main Love is a 79-year-old male with past medical history of TIA, hypertension, herpes zoster neuralgia, hepatitis, arthritis, gout, vertigo, bilateral carotid stenosis, thrombocytopenia, glaucoma, and chronic back pain, presented to the ED on 05/16/2025 with worsening dizziness, nausea, and vomiting. Patient was admitted and cardiology was consulted on 05/16/2025 for further management of stroke rule out and treatment of occlusion of the M1 branch of the right artery MCA and distal right vertebral arteries. #CVA workup negative for acute infarct #Right Middle Cerebral artery M1 segment 70% Stenosis #Atretic right vertebral artery #Mild bilateral carotid stenosis Patient was recently seen in March 2025 for an episode of TIA, patient follows cardiology outpatient and is well-known to practice. Patient experienced an episode of vision changes while watching television where he saw the TV rotate and he experienced a warm sensation in his abdomen, on standing up he experienced some dizziness which eventually improved on its own. Patient denies any syncope/fall/loss of consciousness or any seizure-like activity. Patient noted to have dizziness outpatient as well was referred to otorhinolaryngology and is following neurology outpatient. Echocardiogram outpatient shows heart failure with moderately reduced ejection fraction, was started on GDMT outpatient. -Holter monitoring (04/19/2025) showed avg HR of 58bpm, Sinus bradycardia as predominating rhythm, and 0% Atrial Fibrillation. -Carotid doppler (04/02/2025): showed Right internal carotid artery demonstrates 30 to 50% stenosis. Left internal carotid artery demonstrates 20 to 40% stenosis. -Head CT (05/16/2025): Negative for acute hemorrhage, mass effect or midline shift -CTA head/neck (05/16/2025): 70% stenosis left carotid bifurcation 50% stenosis origin left internal carotid artery, Significantly atretic distal right vertebral artery 70% stenosis M1 segment right middle cerebral artery, Reduced filling of the right middle cerebral artery trifurcation vessels -Brain MRI and MRA (05/16/2025): The right vertebral artery is thready and is not seen to join with the left vertebral artery to form the basilar artery. Otherwise, unremarkable findings. ECHO (05/16/2025) showed: 1. Left ventricle size is normal and systolic function is mildly reduced. Estimated ejection fraction is 45-50%. There is indeterminate diastolic function. 2. Right ventricle chamber size is mildly enlarged and systolic function is normal. 3. Mild AV sclerosis without stenosis, mean gradient 5mmHg, Vmax 1.7m/s. Moderate MAC. Trace MR and mild TR. 4. Prior study from 04/01/2025, agitated saline contrast was performed, shows no evidence of intra-cardiac shunt. Plan: - Aspirin and Plavix per neurology recommendations, continue for 90 days - Continue atorvastatin 40 mg at bedtime - Continue Entresto, consider resuming home amlodipine - Will need close follow up with neurology and ENT to rule out neurological and middle ear causes for his dizziness. 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 Blood pressures permissible to resume Entresto Patient noted to be sinus rhythm, no bradycardia noted currently -Resume GDMT with Sacubitril/valsartan 24 to 26 mg twice daily and no beta- florencio as patient had predominant rhythm sinus bradycardia on Holter and does have dizziness. -Consider resuming amlodipine #History of vertigo -Management per Primary Hospitalist team #History of vertigo #History of TIA #History of herpes zoster neuralgia #History of hepatitis #History of arthritis #History of gout #History of thrombocytopenia - Management as per primary team Thank you for the consult and allowing to participate in the care of the patient. Cardiology will continue to follow. Case discussed with Attending Physician Dr. Francis Blackwood MD Internal Medicine PGY-2 Disclaimer: This note was dictated by speech recognition. Minor errors in juice packaging machines setter may be present due to voice recognition software. Attending Provider Attestation/Addendum I have personally seen and examined the patient separately on the above date of service and discussed the plan of care with the resident. I reviewed the resident Dr. Deejay Blackwood consultation progress note and agree with the resident findings and plan in the note above and have also edited the documentation to reflect my findings and plan. Francis Barry M.D. Interventional Cardiology
[2025-05-18] MEDS: CLOPIDOGREL BISULFATE 75 MG TABLET PO (08:42)
[2025-05-18] MEDS: ASPIRIN EC 81 MG TABEC PO (08:42)
[2025-05-18] MEDS: MECLIZINE HCL 25 MG TABLET PO (08:42)
--- NOTE | 2025-05-18 08:53 | ESDS_ITS ---
<Statement entered by Arina Hill DO - 05/18/25 15:51> I, Arina Hill DO, attest that I was physically present for the muñoz portions of the service and evaluated the patient with the resident and I reviewed and discussed the case with the resident and agree with the resident's findings and plans of care as documented above <Statement entered by Shelli Goodwin MD - 05/18/25 15:36> Patient was seen and examined by me personally. I have reviewed the below documentation by the team resident and agree with its findings with any exceptions as below. Discharge plan was discussed with the attending, Dr. Hill. Shelli Goodwin, PGY-3 Planned Discharge Date 05/18/25 DS: Providers Provider Date of admission: 05/16/25 05:08 Primary care physician: Andre Myles Admitting Provider: Jeff Yadav MD Attending Provider on Admission: Jeff Yadav MD Consults: 05/16/25 02:03 Consult to Neurology / Tele-Neurology Routine Comment: Consulting Provider: [facility] 05/16/25 02:09 Consult to Neurology / Tele-Neurology Routine Comment: Consulting Provider: [facility] 05/16/25 07:20 Referral Physical Therapy Routine Comment: Physician Instructions: 05/16/25 10:49 Referral Speech Therapy Routine Comment: stroke rule out 05/16/25 15:24 Consult to Cardiology Routine Comment: Consulting Provider: Francis Barry 05/17/25 07:09 Consult to Neurology / Tele-Neurology Routine Comment: MCA and vertebral artery occlusion, stroke r/o Consulting Provider: Jet Cunningham Attending Provider on DC: Arina Hill DO Discharging Provider: Arina Hill DO DS: Diagnosis Problem List Completed Was Problem List Reviewed/Reconciled?: Yes Hospital Course Hospital Course Hospital course: ED Course: 79-year-old male past medical history of TIA, hypertension, herpes zoster neuralgia, hepatitis, arthritis, gout, vertigo, bilateral carotid stenosis, thrombocytopenia, who presented to the ED in the caseworker of 05/16/2025 with a chief complaint of dizziness, nausea, and vomiting. 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 Continued Amlodipine 5 mg once daily and Entresto resumed. Dry BNP appears to be 79 (03/31/2025). On 05/18, neurology said continue with dual antiplatelet therapy for 90 days and statin. Patient was back to baseline, and was considered stable for discharge. Discharge Instructions: Instructions: -You have been treated for TIA. -Please take Aspirin 81 mg once daily and Plavix 75 mg once daily for the next 90 days. Increased risk of bleeding with these medications, if you experience a fall or bleeding that does not stop please contact your health care provider or seek immediate medical attention -Please follow up with Dr. cunningham, neurology, within one to two weeks from discharge -please follow up with Dr. Beltran, your shank sander, within one to two weeks. 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 Hill, and senior resident, Dr. Goodwin. Eric Suárez, PGY1 Status at Discharge Overall status at discharge: patient is progressing back to baseline Time Spent with Patient Time attestation: Total time spent providing and/or coordinating discharge services: Time spent: Greater than 30 minutes Exam Vital Signs Temp Pulse Resp BP Pulse Ox O2 Del Method 97.1 F 60 17 131/73 H 98 Room Air 05/18/25 04:00 05/18/25 04:00 05/18/25 04:00 05/18/25 04:00 05/18/25 04:00 05/18/25 04:00 Narrative Exam General: Awake and in no acute distress. Conversational and non-toxic appearing. Neurologic: GCS 15. Alert and oriented x3, no gross neurological deficit, and 5/ 5 strength in all extremities. HEENT: Normocephalic, atraumatic, mucous membranes moist. Heart: Regular rate and rhythm, normal S1 and S2, no murmurs. Lungs: Clear to auscultation bilaterally with no wheezing or crackles. Abdomen: Soft, nondistended, nontender, positive bowel sounds. No guarding or rebound tenderness. Extremities: No edema. 2+ radial and dorsalis pedis pulses bilaterally. Skin: Warm. Dry. No rash or ecchymoses. Discharge Plan Plan Patient Disposition: HOME (Self Care) Patient condition on transfer: Stable Care Plan Goals: Instructions: -You have been treated for TIA. -Please take Aspirin 81 mg once daily and Plavix 75 mg once daily for the next 90 days. Increased risk of bleeding with these medications, if you experience a fall or bleeding that does not stop please contact your health care provider or seek immediate medical attention -Please follow up with Dr. Cunningham, neurology, within one to two weeks from discharge -please follow up with Dr. Beltran, your shank sander, within one to two weeks. -Please follow up with your primary care provider within one week of discharge -If your symptoms worsen,please seek immediate medical attention and return to your nearest emergency room -If you do not have a primary care provider, [facility] [address], [place] [address], Prescriptions/Referrals Prescriptions/Med Rec: New clopidogrel 75 mg Tablet 75 mg PO DAILY 90 Days Qty: 90 0RF Continued acetaminophen 500 mg Tablet 500 mg PO Q6H PRN (Reason: Pain) amlodipine 5 mg tablet 5 mg PO QDAY Patient Comments: TAKE 1 TABLET BY MOUTH EVERY DAY aspirin 81 mg capsule 81 mg PO QDAY Qty: 30 2RF atorvastatin [Lipitor] 40 mg tablet 40 mg PO HS Qty: 30 1RF meclizine 25 mg tablet 25 mg PO QDAY PRN (Reason: dizziness or vertigo) Qty: 30 1RF sacubitril-valsartan 24-26 mg tablet 1 tab PO BID Patient Comments: TAKE 1 TABLET BY MOUTH TWICE A DAY latanoprost 0.005 % drops 1 drp Both eyes .qhs dorzolamide-timolol 22.3-6.8 mg/mL drops 1 drp Both eyes Q12H Discontinued pregabalin 300 mg capsule 300 mg PO BID Patient Comments: TAKE 1 CAPSULE BY MOUTH TWICE A DAY aspirin 81 mg tablet,delayed release (DR/EC) 81 mg PO QDAY Patient Comments: TAKE 1 TABLET BY MOUTH EVERY DAY Referrals: Francis Barry MD [Physician, Cardiology] Andre Myles [Primary Care Provider] Jet Cunningham MD [Physician, Neurology] Patient/Caregiver Discharge Instructions Education Materials: What Is a TIA? Print Language: Citizen Of [place] Stand Alone Forms: Hayde Award Info., Patient Portal Info Letter Discharge Order Discharge Orders: Discharge (Routine); Ordered 05/18/25 Ordered By: Mine Nixon Quality Discharge Quality Measures none
[2025-05-18 12:00] VITALS: BP 142/72; PULSE 60; RESP 16; TEMP 36.2; O2SAT 97
--- NOTE | 2025-05-19 09:26 | PC.SS ---
SS met with patient regarding his d/c plan. Pt is alert/oriented. Pt was admitted for Stroke Rule Out. Pt confirmed demographic and contact information is correct on facesheet. Pt resides with . Pt ambulates independently without assistance or DME. Pt is ok with all ADLs. Patient?s pharmacy of choice is [facility] on [address]. Pt named his , Bing Love medical decision maker if he is unable. SS provided verbal d/c options for home or SNF. Patient?s choice is to return home upon d/c. SS confirmed walker was delivered to bedside. will provide transportation home. Pt followed up with PCP 1 month ago. D/C plan: Return home Next of Kin: Bing Love, , phone# [phone] PCP: Dr. Andre Myles from [facility] Address: Correct on facesheet
== END 2025-05-18 12:25 | disposition home or self-care (01) | DRG 68 ==
LOC: SERX 02:55 → SERHOLD 07:22 → S3NX 05-17 05:35
PROVIDERS: Admitting Provider Student in an Organized Health Care Education/Training Program; Emergency Provider Emergency Medicine; PCP Internal Medicine; Visit Provider Student in an Organized Health Care Education/Training Program
DX: I65.01 Occlusion and stenosis of right vertebral artery (principal); I50.40 Unspecified combined systolic (congestive) and diastolic (congestive) heart failure; I11.0 Hypertensive heart disease with heart failure; I65.23 Occlusion and stenosis of bilateral carotid arteries; I48.91 Unspecified atrial fibrillation; Z79.02 Long term (current) use of antithrombotics/antiplatelets; Z79.82 Long term (current) use of aspirin; Z79.899 Other long term (current) drug therapy; Z86.73 Personal history of transient ischemic attack (TIA), and cerebral infarction without residual deficits
CPT/HCPCS: 36415; 70450; 70496; 70498; 70544; 71045; 80053; 80307; 81001; 83735; 84100; 84484; 85025; 85610; 85730; 92610; 93005; 93225; 93306; 96361; 96374; 96375; 97161; 99285; A4649; J2250; J2765; J7999; Q9967; A9270